=== PATIENT | male | born 1935 | race Caucasian/White ===

== ENCOUNTER → 2016-10-26 | Outpatient (CLI) | payer BC, OTHER ==
[~2016-10-26] MED LIST: ASPEC81 PO; FURO40TA3 PO; LOSA50TA6 PO; MULTTAB58 PO; RIVA1TAB4 PO; SIMV40TA2 PO; TPRSR50 PO; ZOLP5TAB PO
[2016-10-26 18:16] LABS: BLOOD UREA NITROGEN 37 mg/dl (7-18); BUN/CREATININE RATIO 26.1 (10-20); CALCIUM 9.1 mg/dl (8.5-10.1); CARBON DIOXIDE 30 mmol/L (21-32); CHLORIDE 100 mmol/L (98-107); GLUCOSE 114 mg/dl (70-99); SODIUM 138 mmol/L (136-145)
== END | disposition home or self-care (01) ==
LOC: C.LABBFT 12:07
PROVIDERS: ATTEND Nurse Practitioner
DX: R60.9 Edema, unspecified (principal)

== ENCOUNTER 2018-09-17 17:12 | Observation (INO) ==
--- NOTE | 2018-09-17 18:07 | XRay Report ---
XR chest 1V portable CLINICAL HISTORY: Shortness of breath COMPARISON STUDY: 08/21/2016 FINDINGS: The heart is enlarged. There is persistent aortic tortuosity/ectasia. There is a right subc lavian dual-chamber central venous pacemaker present. There is no lobar consolidation. There is mild basilar interstitial thickening.[ IMPRESSION: 1. Cardiomegaly and aortic tortuosity/ectasia 2. Mild basilar interstitial thickening (atelectatic versus mild edema versus infectious/inflammatory ) Electronically signed by: Yury Hdz M.D. 09/17/2018 6:05 PM
[2018-09-17 18:42] LABS: Basophils # (auto) 0.03 K/uL (0-0.2); Basophils % (auto) 0.3 %; Eosinophils # (auto) 0.32 K/uL (0-0.5); Eosinophils % (auto) 3.1 %; Hematocrit (blood only) 44.1 % (42-52); Hemoglobin 14.8 g/dL (14.0-18.0); Immature Granulocytes # (auto) 0.04 K/uL (0.00-0.02); Immature Granulocytes % (auto) 0.4 %; Lymphocytes # (auto) 2.35 K/uL (1.2-3.4); Lymphocytes % (auto) 22.7 %; Mean Corpuscular Hgb Conc 33.6 g/dL (32-36); Mean Corpuscular Volume 90.6 fL (80-100); Mean Platelet Volume 10.5 fL (7.4-10.4); Monocytes # (auto) 0.71 K/uL (0.11-0.59); Monocytes % (auto) 6.9 %; Neutrophils # (auto) 6.91 K/uL (1.4-6.5); Neutrophils % (auto) 66.6 %; Platelet Count 133 K/uL (130-400); RDW Coefficient of Variation 13.1 % (11.5-14.5); RDW Standard Deviation 43.3 fL (36.4-46.3); Red Blood Count 4.87 M/uL (4.7-6.1); White Blood Count 10.36 K/uL (4.8-10.8)
[2018-09-17 18:57] LABS: Alanine Aminotransferase 21 U/L (12-78); Aspartate Aminotransferase 19 U/L (15-37); BUN Creatinine Ratio 21.4 (10-20); Blood Urea Nitrogen 30 mg/dl (7-18); Calcium 9.1 mg/dl (8.5-10.1); Carbon Dioxide 27 mmol/L (21-32); Chloride 104 mmol/L (98-107); Creatinine Clr Calc Pharmacy 54.6 ml/min; Est GFR (African American) 54.7; Est GFR (Non-African American) 47.2; Glucose 96 mg/dl (70-99); Magnesium 2.4 mg/dl (1.8-2.4); Potassium 4.2 mmol/L (3.5-5.1); Sodium 138 mmol/L (136-145)
[2018-09-17 19:08] LABS: Albumin Globulin Ratio 1.2 (0.9-2); Alkaline Phosphatase 106 U/L (45-117); Bilirubin,Total 0.5 mg/dl (0.2-1); Globulin 3.4 gm/dl (2.5-4.0); NT Pro B Type Natriuretic Pept 3574 pg/ml (0-1800); Total Protein 7.4 gm/dl (6.4-8.2); Troponin I < 0.015 ng/ml (0-0.045)
[2018-09-17] MEDS ORDERED: FUROSEMIDE 40 MG/4 ML VIAL IV STA (20:29)
--- NOTE | 2018-09-17 21:27 | History & Physical Report ---
Date of Service September 17, 2018 Assessment & Plan (1) Atrial flutter: Patient with history of atrial fibrillation, atrial arrhythmias and mitral and aortic valve disease s/p MVR and AVR, dual-chamber pacemaker in place. He presents with dyspnea at rest, found to be in atrial flutter which is new for him. Patient presently in no respiratory distress. Adequate oxygenation on room air. His HR is sustained 105-108, blood pressure stable. Electrolytes and TSH WNL. * Observation to medical floor with telemetry * Check 2D echocardiogram - patient is s/p bioprosthetic MVR and AVR * Lasix 20mg IV x 1 dose administered in the ER - will closely monitor for the need for additional diuresis * Continue Metoprolol 50mg po daily * Metoprolol 5mg IV as needed for HR > 120 * Continue Xarelto anticoagulation * Cardiology consultation - patient is known to Dr. Newton - appreciate assistance with this case * (2) Dyspnea: Patient presently with no dyspnea. Adequate oxygenation and ventilation on room air. Possibly secondary to underlying arrhythmia, mild degree of CHF in setting of rapid HR * Lasix 20mg IV given * Continue Lasix 40mg po daily * Monitor output * Present on Admission?: Yes (3) CAD (coronary artery disease): Nonobstructing CAD. No CP, no evidence of myocardial ischemia by labs or EKG * Continue ASA, Cozaar, metoprolol and Simvastatin * Present on Admission?: Yes (4) Hypertension: Blood pressure stable at present * Continue Metoprolol and Cozaar * Continue to monitor * F/E/N- Diuresis as above, monitor I/O, montitor electrolytes and replete as needed. Heart healthy diet as tolerated. Vistaril PRN insomnia. Continue MVI ppx - Anticoagulated with Xarelto Code - Full per discussion with patient Dispo - Observation to Med with tele History of Present Illness Chief Complaint: SOB Primary Care Provider: Efra Hobson III, Mr. Ocampo is a pleasant 82yo C male with history of non-obstructive CAD, atrial fibrillation on anticoagulation, bioprosthetic MVR and AVR and dual chamber pacer in place. He follows with Dr. Newton. Patient was working in the garage this evening when he became acutely short of breath. He sat down to rest with minimal relief in symptoms. He then carried a box of tools upstairs and became more dyspneic. He laid on the floor with no improvement in symptoms. 911 was called and he was sent to the ER. Patient denies chest pain, cough, fevers, orhtopnea or edema. He does report occasional palpitations over the last few months as well as strong palpitations this evening during the episode of dyspnea. Patient was given a fit-bit for Harini - son reports that his resting heart rate has been in the 60's all week. Patient with no additional complaints at this time. Upon arrival to the ER he was found to be in new onset atrial flutter. Blood pressure stable. Patient asymptomatic. ER Course: Lasix 20mg IV Allergies Allergy/AdvReac Type Severity Reaction Status Date / Time adhesive Allergy Mild RASH Verified 09/17/18 20:50 Home Medications Home Medications Medication Instructions Recorded Confirmed Type albuterol sulfate [ProAir HFA] 2 puff INHALATION Q4H PRN 09/17/18 09/17/18 History aspirin [Aspir-81] 81 mg PO DAILY 09/17/18 09/17/18 History furosemide 40 mg PO DAILY 09/17/18 09/17/18 History losartan 50 mg PO DAILY 09/17/18 09/17/18 History metoprolol succinate 50 mg PO DAILY 09/17/18 09/17/18 History multivitamin [Multiple Vitamins] 1 tab PO DAILY 09/17/18 09/17/18 History rivaroxaban [Xarelto] 20 mg PO DAILY 09/17/18 09/17/18 History simvastatin 40 mg PO DAILY 09/17/18 09/17/18 History zolpidem 5 mg PO HS PRN 09/17/18 09/17/18 History Past Med/Surg History Medical History Hypertension (Chronic) Atrial fibrillation CAD (coronary artery disease) Hyperlipidemia Surgical History H/O aortic valve replacement (Resolved) H/O mitral valve replacement (Resolved) History of appendectomy History of permanent cardiac pacemaker placement Family History Other Cancer Heart disease Hypertension Social History Current Living Situation: Family Feels Safe at Home: Yes Smoking Status: Never smoker Hx Alcohol Use: No Hx Substance Use: No Review of Systems All systems reviewed & are unremarkable except as noted in HPI & below Physical Exam 2 Vital Signs (Past 24 Hours): Last Vital Signs Temp 36.5 C 09/17/18 17:15 Pulse 108 H 01/15/19 20:31 Resp 19 09/17/18 20:31 BP 102/78 09/17/18 20:31 Pulse Ox 96 09/17/18 20:31 Physical Exam: General: patient resting comfortably, NAD, non-toxic in appearance, AA&O x 4 Skin: warm, dry, intact, no rashes or lesions HEENT: NC/AT, PERRL, EOMI, anicteric sclera, conjunctiva without injection, external ear normal to inspection and nontender, nares patent, moist mucus membranes, dentition intact, no oropharyngeal lesions, neck supple, trachea midline, no LAD, no thyromegaly, no JVD Heart: +S1/S2, regular, tachycardic, no m/r/g Lungs: equal air entry bilaterally, no rales/rhonchi/wheezes Abd: obese, +BS, soft, NT/ND, no masses/organomegaly/ascites Ext: warm, 2+ pulses in UE/LE bilaterally, trace pitting edema Neuro: nonfocal, patient AA&O x 4, speech intact, no facial droop, moving all extremities on command with equal strength 5/5 Results & Data Laboratory Results Lab Results 09/17/18 09/17/18 Range/Units 18:18 18:18 WBC 10.36 (4.8-10.8) K/uL RBC 4.87 (4.7-6.1) M/uL Hgb 14.8 (14.0-18.0) g/dL Hct 44.1 (42-52) % MCV 90.6 (80-100) fL MCH 30.4 (25-34) pg MCHC 33.6 (32-36) g/dL RDW Std Deviation 43.3 (36.4-46.3) fL RDW Coeff of Radha 13.1 (11.5-14.5) % Plt Count 133 (130-400) K/uL MPV 10.5 H (7.4-10.4) fL Immature Gran % (Auto) 0.4 % Neut % (Auto) 66.6 % Lymph % (Auto) 22.7 % Faulk % (Auto) 6.9 % Eos % (Auto) 3.1 % Baso % (Auto) 0.3 % Immature Gran # (Auto) 0.04 H (0.00-0.02) K/uL Neut # (Auto) 6.91 H (1.4-6.5) K/uL Lymph # (Auto) 2.35 (1.2-3.4) K/uL Faulk # (Auto) 0.71 H (0.11-0.59) K/uL Eos # (Auto) 0.32 (0-0.5) K/uL Baso # (Auto) 0.03 (0-0.2) K/uL Sodium 138 (136-145) mmol/L Potassium 4.2 (3.5-5.1) mmol/L Chloride 104 (98-107) mmol/L Carbon Dioxide 27 (21-32) mmol/L Anion Gap 7.0 (3-11) BUN 30 H (7-18) mg/dl Creatinine 1.39 (0.6-1.4) mg/dl Est Cr Clr Drug Dosing 54.6 ml/min Est GFR ( Amer) 54.7 Est GFR (Non-Af Amer) 47.2 BUN/Creatinine Ratio 21.4 H (10-20) Glucose 96 (70-99) mg/dl Calcium 9.1 (8.5-10.1) mg/dl Magnesium 2.4 (1.8-2.4) mg/dl Total Bilirubin 0.5 (0.2-1) mg/dl AST 19 (15-37) U/L ALT 21 (12-78) U/L Alkaline Phosphatase 106 (45-117) U/L Troponin I < 0.015 (0-0.045) ng/ml NT-Pro-B Natriuret Pep 3574 H (0-1800) pg/ml Total Protein 7.4 (6.4-8.2) gm/dl Albumin 4.0 (3.4-5.0) gm/dl Globulin 3.4 (2.5-4.0) gm/dl Albumin/Globulin Ratio 1.2 (0.9-2) Lipase 181 (73-393) U/L TSH 2.350 (0.300-4.500) uIu/ml Diagnostic Findings XR chest 1V portable CLINICAL HISTORY: Shortness of breath COMPARISON STUDY: 08/21/2016 FINDINGS: The heart is enlarged. There is persistent aortic tortuosity/ectasia. There is a right subclavian dual-chamber central venous pacemaker present. There is no lobar consolidation. There is mild basilar interstitial thickening. [ IMPRESSION: 1. Cardiomegaly and aortic tortuosity/ectasia 2. Mild basilar interstitial thickening (atelectatic versus mild edema versus infectious/inflammatory) Electronically signed by: Yury Hdz M.D. 09/17/2018 6:05 PM ECG Additional Comments: The study shows atrial flutter with 2:1 block, no evidence of acute ischemia Code Status & VTE Plan Code Status FULL VTE Prophylaxis Plan VTE Prophylaxis will be ordered: No Reason for no VTE drug order: Treatment not indicated Reason for no VTE mechanical prophylaxis: Treatment not indicated Critical Care Time Critical Care Time: No _ (1) CAD (coronary artery disease) Coronary Disease-Associated Artery/Lesion type: grayling artery [place] vs. transplanted heart: grayling heart Associated angina: without angina Qualified Code(s): I25.10 - Atherosclerotic heart disease of grayling coronary artery without angina pectoris (2) Atrial flutter Atrial flutter type: unspecified Qualified Code(s): I48.92 - Unspecified atrial flutter (3) Dyspnea Dyspnea type: shortness of breath Qualified Code(s): R06.02 - Shortness of breath; R06.00 - Dyspnea, unspecified; R06.01 - Orthopnea (4) Hypertension Hypertension type: essential hypertension Qualified Code(s): I10 - Essential (primary) hypertension
[2018-09-17] MEDS ORDERED: ACETAMINOPHEN 325 MG TAB PO PRN (23:49)
[2018-09-17] MEDS ORDERED: METOPROLOL TARTRATE 1 MG/ML VIAL IV PRN (23:49)
[2018-09-18 00:18] LABS: Phosphorus 2.3 mg/dl (2.5-4.9)
[2018-09-18] MEDS ORDERED: POTASSIUM PHOS 3 MMOL/1 ML INFUSION IV STA (06:04)
[2018-09-18] MEDS: POT PHOSPHATE MONOBASIC W/ SOD TAB PO SCH ×2 (07:53→20:41)
[2018-09-18] MEDS: FUROSEMIDE 40 MG TAB PO SCH (07:54)
[2018-09-18] MEDS: MULTIVITAMIN TAB PO SCH (07:57)
[2018-09-18] MEDS: ASPIRIN 81 MG ECTAB PO SCH (07:58)
[2018-09-18] MEDS: RIVAROXABAN 20 MG TAB PO SCH (07:58)
[2018-09-18] MEDS ORDERED: LOSARTAN POTASSIUM 50 MG TAB PO SCH (09:00)
[2018-09-18] MEDS ORDERED: SIMVASTATIN 40 MG TAB PO SCH (09:00)
[2018-09-18] MEDS ORDERED: METOPROLOL SUCC 50MG EXT REL TAB PO SCH (09:00)
--- NOTE | 2018-09-18 11:07 | Consultation Report ---
DATE OF CONSULTATION: 09/18/2018 REQUESTING PHYSICIAN: Elzbieta Stout DO [place]NER: Jeevan Newton DO, [facility]. REASON FOR CONSULTATION: Shortness of breath, new onset atrial flutter. Dear Dr. Stout: Thank you for requesting a cardiology consultation on Renny with regards to his complex cardiac history. As you know, he is a pleasant and very active 82-year-old gentleman with a prior history of bioprosthetic aortic and mitral valve prostheses. In addition, he had a severe paravalvular leak across the mitral valve, which required 3 plugs. He has a pacemaker (Medtronic device for AV block). He has had short episodes of atrial arrhythmias in the past, none of which have lasted for any significant duration. He notes yesterday, he was going down the stairs, when he reached the bottom of the stairs, he notices all of a sudden that he did not feel well and he felt short of breath and felt like he could not breathe, he felt like he had some gurgling in his chest. He laid down with some improvement in his symptoms. He called his family member noting that he was short of breath and not feeling well and was brought to the Emergency Room. EKG reveals atrial flutter with 2:1 conduction at a rate of approximately 110 beats per minute. This morning, he is unaware of any palpitations and notes he actually feels better, although he has not walked in the hallway. He is not lightheaded or dizzy. He denies any shortness of breath this morning, chest pain, chest pressure, chest heaviness. He notes in the days leading up to this, he felt relatively well and denied any cardiac symptoms. He has been compliant with his Xarelto and has not missed any doses. He denies any dark stools, black stools, fevers, chills, sweats, cough, productive sputum. His appetite has been relatively stable. He does weigh himself on a regular basis. His weight has been within pound or 2 of usual. He does occasionally get some swelling on his left leg, but that has not worsened recently. He denies any increased abdominal distention or feeling like his pants are tight. The rest of system is otherwise negative. ALLERGIES: LISINOPRIL AND TAPE. SOCIAL HISTORY: Denies any tobacco or alcohol. He likes to jovita in the garage with antiques. He is . He worked in construction. MEDICATIONS: Reviewed in the inpatient medical record. PAST MEDICAL HISTORY: 1. Status post aortic valve replacement with a 23 mm Brad-Aguirre bioprosthetic aortic valve at [facility], February 2010. 2. Status post mitral valve replacement of 33 mm bioprosthetic mitral valve, January 2012 secondary to severe mitral regurgitation. 3. Status post repair of a large paravalvular mitral regurgitant leak with 3 plugs at [facility] February 2013. 4. History of a nonischemic cardiomyopathy with an echo today suggesting an EF in the range of 50% with a septal abnormality. 5. Cardiac catheterization October 2012 with a 50-60% lesion within the OM of the circumflex, 40% proximal LAD lesion. 6. Paroxysmal atrial fibrillation, on anticoagulation. 7. Complete heart block, status post Medtronic Sensia dual chamber pacemaker January 2012. 8. History of thyroid nodule. 9. Hypertension. 10. Hyperlipidemia. 11. Osteoarthritis. 12. Carotid bruit. 13. Likely obstructive sleep apnea and obesity hypoventilation syndrome, refusing a sleep study. FAMILY HISTORY: Noncontributory. PHYSICAL EXAMINATION: GENERAL: He is awake, alert, oriented x3, looks younger than his stated age. VITAL SIGNS: His heart rate is 108, his blood pressure 133/80, respirations 18, sat is 92%. HEENT: Moderately reduced carotid upstrokes, no evidence of carotid bruits. Jugular venous pressure did not appear elevated. His sclerae are anicteric. His hearing is normal. LUNGS: Clear to auscultation bilaterally. No rales, rhonchi or wheezing. HEART: Regular rate and rhythm (tachycardic/atrial flutter). There were no appreciable murmurs, rubs or gallops. ABDOMEN: Soft, nontender, chronically distended. Positive bowel sounds. EXTREMITIES: No clubbing, cyanosis or edema. PSYCHIATRIC: His affect appeared appropriate. NEUROLOGIC: Grossly nonfocal. LABORATORY STUDIES: Hemoglobin 14.8, platelet count of 133, BUN 30, creatinine 1.39. Sodium 138, potassium 4.2. His proBNP is 3574. His TSH is normal at 2.35. His AST and ALT were normal. Chest x-ray, cardiomegaly, tortuous aorta, mild basilar interstitial thickening. Echocardiogram, this morning, dilated right ventricle with hypokinesis of the RV free wall. The aortic and mitral valve prosthesis appeared to be functioning normally. There is no significant aortic or mitral regurgitation. He has mild pulmonary hypertension. His LV function is low normal with abnormal septal motion. Device interrogation suggested multiple fast atrial arrhythmias an hour and 19 minutes on 08/11/2018, 3 hours and 35 minutes on the same day and on 09/17/2018 at 5:05 p.m., he initiated atrial flutter. IMPRESSION: 1. New onset atrial flutter. 2. History of bioprosthetic aortic and mitral valve prostheses. 3. Low normal left ventricular systolic function. 4. Dilated right ventricle with RV dysfunction. 5. Shortness of breath secondary to the loss of his atrial kick and mild heart failure symptoms. As I discussed with Renny, his options include increasing his beta blockers to control his rate, understanding that he still will not have an appropriate atrial kick which likely will contribute to his shortness of breath, in addition atrial flutter can be very difficult to control with AV zoe blockers and we may be unsuccessful. Option two was to consider overdrive pacing him with the risk that we put him into atrial fibrillation or consideration of cardioversion to get him back into sinus rhythm. I did discuss that we do not know how long he would stay in sinus rhythm as he appears to be having more frequent episodes and ultimately may need antiarrhythmic therapy to maintain sinus rhythm. The third option we consider a flutter ablation, understanding it could be right sided or left sided, especially in light of his previous mitral valve surgery. He remains on anticoagulation with Xarelto. He has not missed any doses of Xarelto. After a long discussion, he did not want to consider cardioversion at this point and wants to consider AV zoe blockers understanding he may still be short of breath and we may not be able to control his rate and ultimately he may end up with a cardioversion in any way. Therefore, I stopped his losartan and double his Toprol to 50 mg b.i.d. He will remain on Xarelto. I will review his device interrogation with pacemaker clinic. Further recommendations will be forthcoming. We will continue to follow him with you.
--- NOTE | 2018-09-18 17:25 | Hospitalist Progress Note ---
Date of Service September 18, 2018 Assessment & Plan (1) Atrial flutter: Patient with history of atrial fibrillation, atrial arrhythmias and mitral and aortic valve disease s/p MVR and AVR, dual-chamber pacemaker in place. He presents with dyspnea at rest, found to be in atrial flutter which is new for him. Electrolytes and TSH WNL. Cardiology has seen him and discussed options for treatment. Decision made for rate control strategy. ECHO with CHF -increased Toprol XL to 50mg bid -dc'd losartan to make room in BP for increased Toprol -appreciate Cardiology consultation -continue telemetry -Continue Xarelto for anticoagulation. (2) Dyspnea: Likely secondary to underlying arrhythmia, mild degree of CHF in setting of rapid HR * Lasix 20mg IV given * Continue Lasix 40mg po daily * Monitor output (3) CAD (coronary artery disease): Cardiac catheterization October 2012 with a 50-60% lesion within the OM of the circumflex, 40% proximal LAD lesion. Nonobstructing CAD. No CP, no evidence of myocardial ischemia by labs or EKG * Continue ASA,dcing Cozaar as above, metoprolol and Simvastatin (4) Hypertension: Blood pressure stable at present * Continue Metoprolol (5) History of mitral valve prosthesis: Status post mitral valve replacement of 33 mm bioprosthetic mitral valve, January 2012 secondary to severe mitral regurgitation. 3. Status post repair of a large paravalvular mitral regurgitant leak with 3 plugs at [facility] February 2013. (6) History of aortic valve replacement: Status post aortic valve replacement with a 23 mm Brad-Aguirre bioprosthetic aortic valve at [facility], February 2010. (7) Cardiac pacemaker in situ: Complete heart block, status post Medtronic Sensia dual chamber pacemaker January 2012. (8) Paroxysmal atrial fibrillation: h/o such, on metoprolol and AC with Xarelto (9) Nonischemic cardiomyopathy: History of a nonischemic cardiomyopathy with an echo today suggesting an EF in the range of 50% with a septal abnormality. (10) Thyroid nodule: noted (11) Hyperlipidemia: continue statin (12) Acute on chronic combined systolic and diastolic heart failure: LVEF low normal at 50%, with RV wall hypokinesis and sys dysfunction, mod increase RVSP indicating PHTN With dyspnea on admission, was given one dose IV lasix, now improved Likely exacerbated by rapid A-flutter -continue daily home po lasix -follow I/Os, daily weights (13) DVT prophylaxis: Xarelto Dispo-remain on tele, possible dc in 1-2 days when rates controlled Subjective Pt feels well today. Denies CP, but huynh shave some mild dyspnea. No nausea, no abd pain, no increased leg swelling. No urinary retention, no constipation. Rates Aflutter in 100-120 range. Review of Systems All systems reviewed & are unremarkable except as noted in HPI & below Physical Exam 2 Vital Signs (Past 24 Hours): Last Vital Signs Temp 36.6 C 09/18/18 15:10 Pulse 110 H 09/18/18 15:10 Resp 20 09/18/18 15:10 BP 94/64 L 09/18/18 15:10 Pulse Ox 92 09/18/18 15:10 Constitutional: WD/WN, vitals as above Eyes: PERRL, conjunctivae normal, anicteric sclerae ENMT: external ear and nose normal, oropharynx normal Neck: trachea midline, no thyromegaly Respiratory: normal respiratory effort, lungs clear to auscultation Cardiovascular: Rate/Rhythm: + tachycardic; + abnormal rhythm (irreg irreg) Heart Sounds: no murmur Extremities: + edema (trace pitting edema legs bilat) Gastrointestinal (Abdomen): normal bowel sounds, soft, nontender, no hepatosplenomegaly Musculoskeletal: Extremities: extremities normal to inspection; no cyanosis and no clubbing Skin: no rashes, warm and dry Neurologic: moves all extremities and awake; no focal motor deficits Psychiatric: A+Ox3, euthymic affect Results & Data Laboratory Results 09/17/18 09/17/18 Range/Units 18:18 18:18 WBC 10.36 (4.8-10.8) K/uL RBC 4.87 (4.7-6.1) M/uL Hgb 14.8 (14.0-18.0) g/dL Hct 44.1 (42-52) % MCV 90.6 (80-100) fL MCH 30.4 (25-34) pg MCHC 33.6 (32-36) g/dL RDW Std Deviation 43.3 (36.4-46.3) fL RDW Coeff of Radha 13.1 (11.5-14.5) % Plt Count 133 (130-400) K/uL MPV 10.5 H (7.4-10.4) fL Immature Gran % (Auto) 0.4 % Neut % (Auto) 66.6 % Lymph % (Auto) 22.7 % Wilkinson % (Auto) 6.9 % Eos % (Auto) 3.1 % Baso % (Auto) 0.3 % Immature Gran # (Auto) 0.04 H (0.00-0.02) K/uL Neut # (Auto) 6.91 H (1.4-6.5) K/uL Lymph # (Auto) 2.35 (1.2-3.4) K/uL Wilkinson # (Auto) 0.71 H (0.11-0.59) K/uL Eos # (Auto) 0.32 (0-0.5) K/uL Baso # (Auto) 0.03 (0-0.2) K/uL Sodium 138 (136-145) mmol/L Potassium 4.2 (3.5-5.1) mmol/L Chloride 104 (98-107) mmol/L Carbon Dioxide 27 (21-32) mmol/L Anion Gap 7.0 (3-11) BUN 30 H (7-18) mg/dl Creatinine 1.39 (0.6-1.4) mg/dl Est Cr Clr Drug Dosing 54.6 ml/min Est GFR ( Amer) 54.7 Est GFR (Non-Af Amer) 47.2 BUN/Creatinine Ratio 21.4 H (10-20) Glucose 96 (70-99) mg/dl Calcium 9.1 (8.5-10.1) mg/dl Phosphorus 2.3 L (2.5-4.9) mg/dl Magnesium 2.4 (1.8-2.4) mg/dl Total Bilirubin 0.5 (0.2-1) mg/dl AST 19 (15-37) U/L ALT 21 (12-78) U/L Alkaline Phosphatase 106 (45-117) U/L Troponin I < 0.015 (0-0.045) ng/ml NT-Pro-B Natriuret Pep 3574 H (0-1800) pg/ml Total Protein 7.4 (6.4-8.2) gm/dl Albumin 4.0 (3.4-5.0) gm/dl Globulin 3.4 (2.5-4.0) gm/dl Albumin/Globulin Ratio 1.2 (0.9-2) Lipase 181 (73-393) U/L TSH 2.350 (0.300-4.500) uIu/ml _ (1) Atrial flutter Atrial flutter type: unspecified Qualified Code(s): I48.92 - Unspecified atrial flutter (2) Dyspnea Dyspnea type: shortness of breath Qualified Code(s): R06.02 - Shortness of breath; R06.00 - Dyspnea, unspecified; R06.01 - Orthopnea (3) CAD (coronary artery disease) Coronary Disease-Associated Artery/Lesion type: three affiliated artery [place] vs. transplanted heart: three affiliated heart Associated angina: without angina Qualified Code(s): I25.10 - Atherosclerotic heart disease of three affiliated coronary artery without angina pectoris (4) Hypertension Hypertension type: essential hypertension Qualified Code(s): I10 - Essential (primary) hypertension
[2018-09-18] MEDS: METOPROLOL SUCC 50MG EXT REL TAB PO SCH (20:40)
[2018-09-18] MEDS: AMIODARONE 200 MG TAB PO SCH (20:40)
--- NOTE | 2018-09-19 04:01 | Emergency Department Note ---
Entered by Yang Garcia acting as a scribe for Rebecca Catherine DO History of Present Illness General Chief complaint: Shortness of Breath/Dyspnea Stated complaint: SOB, WEAKNESS Time Seen by Provider: 09/17/18 17:24 Source: patient and family History of Present Illness Onset (ago): minute(s) (prior to arrival) Location: chest (lungs) Pain Consistency: + now resolved Quality: + other (shortness of breath) Exacerbated By: + other (walking down steps) Associated symptoms: + diaphoresis and + other (appeared clammy; temporarily lightheaded and nauseous); no chest pain, no cough and no fever/chills The patient is an 82 year old male who presents to the Emergency Room with complaints of currently resolved shortness of breath beginning today prior to arrival. The patient reports that he was walking down a flight of steps when he developed sudden shortness of breath. He states that he sat down, took deep breaths, lied on the floor, and called for help. Family notes that he appeared clammy and diaphoretic at the time with some wheezing. He states that he was a little lightheaded when standing from the floor with help, and he became nauseous in the ambulance, but these symptoms are now resolved. The patient reports that he currently feels fine and denies shortness of breath at this time. He reports a cardiac history, stating that he had and aortic valve replaced at [facility] and a mitral valve replaced at [place] in 2011. He states that he was in the ER two years ago for similar symptoms that developed while walking his dog, noting that his pulse was 190 at the time. He reports that he regularly takes Lasix. He denies recent changes in his medication, chest pain or pressure, fevers, chills, cough, or rhinorrhea. He reports that he follows Dr. [facility] and last saw him about six months ago. He states that he regularly takes Xarelto and has not recently missed any doses. Home Medications Home Medications Medication Instructions Recorded Confirmed Type albuterol sulfate [ProAir HFA] 2 puff INHALATION Q4H PRN 09/17/18 09/17/18 History aspirin [Aspir-81] 81 mg PO DAILY 09/17/18 09/17/18 History furosemide 40 mg PO DAILY 09/17/18 09/17/18 History losartan 50 mg PO DAILY 09/17/18 09/17/18 History metoprolol succinate 50 mg PO DAILY 09/17/18 09/17/18 History multivitamin [Multiple Vitamins] 1 tab PO DAILY 09/17/18 09/17/18 History rivaroxaban [Xarelto] 20 mg PO DAILY 09/17/18 09/17/18 History simvastatin 40 mg PO DAILY 09/17/18 09/17/18 History zolpidem 5 mg PO HS PRN 09/17/18 09/17/18 History Allergies Allergy/AdvReac Type Severity Reaction Status Date / Time adhesive Allergy Mild RASH Verified 09/17/18 20:50 Past Med/Surg History Medical History Acute on chronic combined systolic and diastolic heart failure Hyperlipidemia Thyroid nodule Nonischemic cardiomyopathy Paroxysmal atrial fibrillation Cardiac pacemaker in situ CAD (coronary artery disease) Atrial flutter (Acute) Hypertension (Chronic) Atrial fibrillation CAD (coronary artery disease) Hyperlipidemia Surgical History History of aortic valve replacement History of mitral valve prosthesis H/O aortic valve replacement (Resolved) H/O mitral valve replacement (Resolved) History of appendectomy History of permanent cardiac pacemaker placement Family History Other Cancer Heart disease Hypertension Social History Current Living Situation: Family Other Information That Helps Us Care for You: No Feels Safe at Home: Yes Safety Concerns: Feels Safe At This Time Smoking Status: Never smoker Tobacco Type: smokeless tobacco Do You Dip or Chew Tobacco: Yes (1 can every 3 weeks) Tobacco Cessation Education Requested by Patient: No Hx Alcohol Use: No Hx Substance Use: No Beliefs That Will Affect Care: None Preferred Language: Pashto Communication Ability: Effective Older Adult Social Work Specialist Required: No Review of Systems See HPI for pertinent positives & negatives. and A total of 10 systems reviewed and were otherwise negative Physical Exam Vital Signs Vital Signs - 24 hr 09/18/18 07:55 09/18/18 08:10 09/18/18 11:41 Temperature 36.6 C 36.4 C L Temperature Source Oral Oral Pulse Rate 108 H Pulse Rate [Right Finger] 108 H 108 H Pulse Rhythm [Right Finger] Regular Pulse Strength [Right Finger] Normal Respiratory Rate 18 20 Respiratory Effort / Characteristics Non-Labored Spontaneous Respiratory Depth Normal Respiratory Pattern Regular Blood Pressure [Left Arm] 133/80 125/68 Blood Pressure Mean [Left Arm] 97 87 Blood Pressure Position [Left Arm] Sitting Lying Pulse Oximetry 92 95 Oxygen Delivery Method Room Air 09/18/18 15:10 09/18/18 19:00 09/18/18 23:43 Temperature 36.6 C 36.3 C L 36.4 C L Temperature Source Oral Oral Oral Pulse Rate Pulse Rate [Right Finger] 110 H 111 H 107 H Pulse Rhythm [Right Finger] Pulse Strength [Right Finger] Respiratory Rate 20 18 20 Respiratory Effort / Characteristics Respiratory Depth Normal Respiratory Pattern Blood Pressure [Left Arm] 94/64 L 108/72 100/67 Blood Pressure Mean [Left Arm] 74 84 78 Blood Pressure Position [Left Arm] Lying Sitting Lying Pulse Oximetry 92 95 94 Oxygen Delivery Method Room Air Room Air Room Air 09/19/18 01:16 Temperature Temperature Source Pulse Rate 109 H Pulse Rate [Right Finger] Pulse Rhythm [Right Finger] Pulse Strength [Right Finger] Respiratory Rate Respiratory Effort / Characteristics Respiratory Depth Respiratory Pattern Blood Pressure [Left Arm] Blood Pressure Mean [Left Arm] Blood Pressure Position [Left Arm] Pulse Oximetry Oxygen Delivery Method GENERAL: alert, well appearing, well nourished, no distress, non-toxic EYE EXAM: normal conjunctiva, PERRL and EOM's grossly intact OROPHARYNX: no exudate, no erythema, lips, buccal mucosa, and tongue normal and mucous membranes are moist NECK: supple, no nuchal rigidity, no adenopathy, non-tender, no JVD LUNGS: Decreased breath sounds bilaterally. No wheezing, rhonchi or rales. Normal chest wall mechanics HEART: no murmurs, S1 normal and S2 normal CHEST: Well healed vertical midline scar of the chest. Right anterior superior chest wall scar consistent with pacemaker. ABDOMEN: abdomen soft, non-tender, normo-active bowel sounds, no masses, no rebound or guarding. BACK: Back is symmetrical on inspection and there is no deformity, no midline tenderness, no CVA tenderness. SKIN: no rashes and no bruising UPPER EXTREMITIES: upper extremities are grossly normal. FROM, nml pulses b/l. LOWER EXTREMITIES: Trace pedal edema bilaterally. FROM nml pulses b/l. NEURO EXAM: Normal sensorium, cranial nerves II-XII grossly intact, normal speech, no gross weakness of arms, no gross weakness of legs. Gross sensation intact. Course 1735: Past medical records reviewed. The patient was evaluated in room B4B, and a complete history and physical examination were performed. 1950: I updated the patient on his current results, but results of the pacemaker interrogation are still pending. He denies recurrent symptoms. An ambulatory pulse ox will be obtained. The patient denies missing Lasix doses, dietary indiscretion, or increased weight. 2014: I consulted Dr. Marta Peraza Cardiology. He reviewed the EKG, and he agrees with the plan for additional Lasix. We discussed the possibility of additional metoprolol. 2029: I updated the patient on results. 2038: I consulted Dr. Stout [facility] Hospitalist. She will reevaluate the patient for hospitalization. Consultations Consultation #1: I consulted Dr. Marta Peraza Cardiology. He reviewed the EKG, and he agrees with the plan for additional Lasix. We discussed the possibility of additional metoprolol. Time: 20:15 Consultation #2: I consulted Dr. Stout [facility] Hospitalist. She will reevaluate the patient for hospitalization. Time: 20:39 Administered Medications Amiodarone HCl (Cordarone) 200 mg PO BID SANTA Stop: 10/18/18 20:59 Last Admin: 09/18/18 20:40 Dose: 200 mg Aspirin (Ecotrin Ectab) 81 mg PO DAILY SANTA Stop: 10/18/18 08:59 Last Admin: 09/18/18 07:58 Dose: 81 mg Furosemide (Lasix) 40 mg PO DAILY SANTA Stop: 10/18/18 08:59 Last Admin: 09/18/18 07:54 Dose: 40 mg Hydroxyzine HCl (Vistaril) 25 mg PO HS PRN PRN Reason: Insomnia Stop: 10/17/18 23:48 Last Admin: 09/18/18 00:26 Dose: 25 mg Metoprolol Succinate (Toprol Xl) 50 mg PO BID SANTA Stop: 10/18/18 20:59 Last Admin: 09/18/18 20:40 Dose: 50 mg Multivitamins (Multivitamin Tab) 1 tab PO DAILY SANTA Stop: 10/18/18 08:59 Last Admin: 09/18/18 07:57 Dose: 1 tab Rivaroxaban (Xarelto) 20 mg PO DAILY SANTA Stop: 10/18/18 08:59 Last Admin: 09/18/18 07:58 Dose: 20 mg Discontinued Medications Furosemide (Lasix) 20 mg IV NOW STA Stop: 09/17/18 20:30 Last Admin: 09/17/18 20:34 Dose: 20 mg Losartan Potassium (Cozaar) 50 mg PO DAILY SANTA Stop: 10/18/18 08:59 Last Admin: 09/18/18 07:54 Dose: 50 mg Metoprolol Succinate (Toprol Xl) 50 mg PO DAILY SANTA Stop: 10/18/18 08:59 Last Admin: 09/18/18 07:57 Dose: 50 mg Potassium Phosphate (Phospha 250 Neutral 155-852-130 Mg) 2 tab PO BID SANTA Stop: 09/18/18 21:01 Last Admin: 09/18/18 20:41 Dose: 2 tab Admin: 09/18/18 07:53 Dose: 2 tab Simvastatin (Zocor) 40 mg PO DAILY SANTA Stop: 10/18/18 08:59 Last Admin: 09/18/18 07:57 Dose: 40 mg Medical Decision Making Differential Diagnosis Differential diagnosis: Etiologies such as infections, reactive airway disease, pneumonia, pneumothorax , COPD, CHF, cardiac ischemia, pulmonary embolism, musculoskeletal, gastrointestinal, as well as others were entertained. Medical Records Attestation: I reviewed the patient's medical records. Home Medications Current Medication List: was personally reviewed by me Laboratory Data Attestation: I reviewed the patient's lab results. Result diagrams: 09/17/18 18:18 09/17/18 18:18 Lab Results 09/17/18 09/17/18 Range/Units 18:18 18:18 WBC 10.36 (4.8-10.8) K/uL RBC 4.87 (4.7-6.1) M/uL Hgb 14.8 (14.0-18.0) g/dL Hct 44.1 (42-52) % MCV 90.6 (80-100) fL MCH 30.4 (25-34) pg MCHC 33.6 (32-36) g/dL RDW Std Deviation 43.3 (36.4-46.3) fL RDW Coeff of Radha 13.1 (11.5-14.5) % Plt Count 133 (130-400) K/uL MPV 10.5 H (7.4-10.4) fL Immature Gran % (Auto) 0.4 % Neut % (Auto) 66.6 % Lymph % (Auto) 22.7 % [place] % (Auto) 6.9 % Eos % (Auto) 3.1 % Baso % (Auto) 0.3 % Immature Gran # (Auto) 0.04 H (0.00-0.02) K/uL Neut # (Auto) 6.91 H (1.4-6.5) K/uL Lymph # (Auto) 2.35 (1.2-3.4) K/uL [place] # (Auto) 0.71 H (0.11-0.59) K/uL Eos # (Auto) 0.32 (0-0.5) K/uL Baso # (Auto) 0.03 (0-0.2) K/uL Sodium 138 (136-145) mmol/L Potassium 4.2 (3.5-5.1) mmol/L Chloride 104 (98-107) mmol/L Carbon Dioxide 27 (21-32) mmol/L Anion Gap 7.0 (3-11) BUN 30 H (7-18) mg/dl Creatinine 1.39 (0.6-1.4) mg/dl Est Cr Clr Drug Dosing 54.6 ml/min Est GFR ( Amer) 54.7 Est GFR (Non-Af Amer) 47.2 BUN/Creatinine Ratio 21.4 H (10-20) Glucose 96 (70-99) mg/dl Calcium 9.1 (8.5-10.1) mg/dl Phosphorus 2.3 L (2.5-4.9) mg/dl Magnesium 2.4 (1.8-2.4) mg/dl Total Bilirubin 0.5 (0.2-1) mg/dl AST 19 (15-37) U/L ALT 21 (12-78) U/L Alkaline Phosphatase 106 (45-117) U/L Troponin I < 0.015 (0-0.045) ng/ml NT-Pro-B Natriuret Pep 3574 H (0-1800) pg/ml Total Protein 7.4 (6.4-8.2) gm/dl Albumin 4.0 (3.4-5.0) gm/dl Globulin 3.4 (2.5-4.0) gm/dl Albumin/Globulin Ratio 1.2 (0.9-2) Lipase 181 (73-393) U/L TSH 2.350 (0.300-4.500) uIu/ml Imaging Data Radiologist's Impression: Radiology results as stated below per my review and the radiologist's interpretation: XR chest 1V portable CLINICAL HISTORY: Shortness of breath COMPARISON STUDY: 08/21/2016 FINDINGS: The heart is enlarged. There is persistent aortic tortuosity/ectasia. There is a right subclavian dual-chamber central venous pacemaker present. There is no lobar consolidation. There is mild basilar interstitial thickening. [ IMPRESSION: 1. Cardiomegaly and aortic tortuosity/ectasia 2. Mild basilar interstitial thickening (atelectatic versus mild edema versus infectious/inflammatory) Electronically signed by: Yury Hdz M.D. 09/17/2018 6:05 PM ECG Data Attestation: I personally reviewed and interpreted this ECG as follows: Indication: SOB/dyspnea Rate (beats per minute): 106 Rhythm: atrial flutter Findings: + other (normal axis, normal intervals); no PAC, no PVC, no ST depression and no ST elevation Blood Pressure Blood Pressure Findings: Normal blood pressure Blood Pressure Disposition: did not require urgent referral MDM Narrative Patient with significant cardiac history and episode of shortness of breath tonight. While patient reported feeling improved at the time of arrival, was not hypoxic, concern given his significant cardiac history. Initial EKG and heart rate on telemetry thought to possibly be sinus tachycardia due to events and stress, however given persistence of heart rate I reviewed the EKG again and was concerned for atrial flutter. Patient with prior history of atrial fibrillation according to old records, however no atrial flutter. Patient with no physical exam findings of acute congestive heart failure, however BNP elevated. Case discussed with cardiology as a precaution who agree with diagnosis of atrial flutter. Patient is already on Lasix daily, discussed giving additional small dose of Lasix to help with fluid. I did question the patient at bedside regarding this, and he does admit to mild dietary indiscretions recently. Patient has been normotensive here, we did discuss additional beta-blockade if necessary. Patient is already anticoagulated. This was relayed to the hospitalist who I discussed this with for additional evaluation and management. Patient and family were aware of all results in agreement with plan. Patient was hemodynamically stable throughout. Impression & Plan Dyspnea, Atrial flutter, Elevated brain natriuretic peptide (BNP) level Discharge Plan Visit Data *Final* Discharge Date/Time: 09/17/18 23:12 Chief Complaint: Shortness of Breath/Dyspnea Stated Complaint: SOB, WEAKNESS ED Provider: Rebecca Catherine Discharge Problem: Dyspnea, Atrial flutter, Elevated brain natriuretic peptide (BNP) level Patient Disposition: Admitted As Inpatient Discharge Instructions Interventions: ED Discharge Assessment Last Done: 09/17/18 23:12 The scribe's documentation has been prepared under my direction and personally reviewed by me in its entirety. I confirm that the note above accurately reflects all work, treatment, procedures, and medical decision making performed by me.
[2018-09-19 06:13] LABS: Basophils # (auto) 0.03 K/uL (0-0.2); Basophils % (auto) 0.4 %; Eosinophils # (auto) 0.35 K/uL (0-0.5); Eosinophils % (auto) 4.3 %; Hematocrit (blood only) 42.5 % (42-52); Hemoglobin 14.2 g/dL (14.0-18.0); Immature Granulocytes # (auto) 0.02 K/uL (0.00-0.02); Immature Granulocytes % (auto) 0.2 %; Lymphocytes % (auto) 34.5 %; Mean Corpuscular Hgb Conc 33.4 g/dL (32-36); Mean Corpuscular Volume 90.2 fL (80-100); Monocytes # (auto) 0.76 K/uL (0.11-0.59); Monocytes % (auto) 9.4 %; Neutrophils # (auto) 4.15 K/uL (1.4-6.5); Neutrophils % (auto) 51.2 %; Platelet Count 123 K/uL (130-400); RDW Coefficient of Variation 13.1 % (11.5-14.5); RDW Standard Deviation 43.2 fL (36.4-46.3); Red Blood Count 4.71 M/uL (4.7-6.1); White Blood Count 8.11 K/uL (4.8-10.8)
[2018-09-19 06:49] LABS: Calcium 8.4 mg/dl (8.5-10.1); Creatinine Clr Calc Pharmacy 50.7 ml/min; Est GFR (African American) 52.4; Est GFR (Non-African American) 45.2; Magnesium 2.3 mg/dl (1.8-2.4); Potassium 3.9 mmol/L (3.5-5.1)
[2018-09-19] MEDS: AMIODARONE 200 MG TAB PO SCH ×2 (07:45→20:26)
[2018-09-19] MEDS: ASPIRIN 81 MG ECTAB PO SCH (07:45)
[2018-09-19] MEDS: MULTIVITAMIN TAB PO SCH (07:45)
[2018-09-19] MEDS: RIVAROXABAN 20 MG TAB PO SCH (07:45)
[2018-09-19] MEDS: FUROSEMIDE 40 MG TAB PO SCH (07:45)
[2018-09-19] MEDS: SIMVASTATIN 20 MG TAB PO SCH (07:46)
[2018-09-19] MEDS: METOPROLOL SUCC 50MG EXT REL TAB PO SCH (07:47)
[2018-09-19] MEDS ORDERED: SIMVASTATIN 40 MG TAB PO SCH (09:00)
--- NOTE | 2018-09-19 09:29 | Cardiology Progress Note ---
Date of Service September 19, 2018 He feels better this morning. He has ambulated in the hallway. He denies any chest pain or chest pressure with activity he denies significant shortness of breath. Denies any light his dizziness presyncope or syncope. He denies any lower extremity edema. His appetite is stable he did have breakfast this morning. radiation monitor still reveals that he is in atrial flutter with rates between 100 110 bpm. His His blood pressure was in the 90s systolic last night. Physical Exam 2 Vital Signs (Past 24 Hours): Last Vital Signs Temp 36.2 C L 09/19/18 07:47 Pulse 106 H 09/19/18 07:47 Resp 18 09/19/18 07:47 BP 120/78 09/19/18 07:47 Pulse Ox 93 09/19/18 07:47 PHYSICAL EXAMINATION: GENERAL: He is awake, alert, oriented x3, looks younger than his stated age. HEENT: Moderately reduced carotid upstrokes, no evidence of carotid bruits. Jugular venous pressure did not appear elevated. His sclerae are anicteric. His hearing is normal. LUNGS: Clear to auscultation bilaterally. No rales, rhonchi or wheezing. HEART: Regular rate and rhythm (tachycardic/atrial flutter). There were no appreciable murmurs, rubs or gallops. ABDOMEN: Soft, nontender, chronically distended. Positive bowel sounds. EXTREMITIES: No clubbing, cyanosis or edema. PSYCHIATRIC: His affect appeared appropriate. NEUROLOGIC: Grossly nonfocal. IMPRESSION: 1. New onset atrial flutter. 2. History of bioprosthetic aortic and mitral valve prostheses. 3. Low normal left ventricular systolic function. 4. Dilated right ventricle with RV dysfunction. 5. Shortness of breath secondary to the loss of his atrial kick and mild heart failure symptoms. 6. Chronic anticoagulation with Xarelto As I discussed with Renny his heart rate is still fast even though he is feeling better. This will increase his risk of heart failure. In addition with a loss of his atrial kick this will increase his risk of shortness of breath, dyspnea and heart failure. We discussed options. I did initiate amiodarone 200 mg BID last night. His blood pressures are on the low side which will preclude our ability to increase his beta-blockers any further. He remains on Xarelto. He would like to discuss his options with his daughter. my recommendation was to consider cardioversion. He could wait 7-10 days and see if with amiodarone loading he converted spontaneously on his own although the chance of this happening is relatively small the other option is to consider electrical cardioversion while he is in the hospital or wait till next week as an outpatient.. We discussed risks and benefits of cardioversion in detail including less than 1 % risk of stroke, dying, heart attack, skin vazquez and hypotension. He had breakfast this morning if they wish to proceed with cardioversion we could try to cardiovert him this afternoon. If not he could be scheduled in the [employer] at 745 tomorrow morning.
--- NOTE | 2018-09-19 13:29 | Hospitalist Progress Note ---
Date of Service September 19, 2018 Assessment & Plan (1) Atrial flutter: Patient with history of atrial fibrillation, atrial arrhythmias and mitral and aortic valve disease s/p MVR and AVR, dual-chamber pacemaker in place. He presents with dyspnea at rest, found to be in atrial flutter which is new for him. Electrolytes and TSH WNL. Cardiology has seen him and discussed options for treatment. Initially attempted a rate control strategy with an increased dose of Toprol, however his blood pressure was low and his rate was not controlled. Plan now for DC cardioversion in the morning ECHO with CHF as below -Return Toprol XL back to 50mg once daily due to low blood pressures with twice daily dosing -Can likely restart losartan tomorrow but will wait to see what renal function is in the morning -appreciate Cardiology consultation -continue telemetry -Continue Xarelto for anticoagulation. (2) Dyspnea: Likely secondary to underlying arrhythmia, mild degree of CHF in setting of rapid HR. Now very mild and only with heavy exertion * Lasix 20mg IV given * Continue Lasix 40mg po daily * Monitor output (3) CAD (coronary artery disease): Cardiac catheterization October 2012 with a 50-60% lesion within the OM of the circumflex, 40% proximal LAD lesion. Nonobstructing CAD. No CP, no evidence of myocardial ischemia by labs or EKG * Continue ASA, metoprolol and Simvastatin * Will likely restart losartan tomorrow (4) Hypertension: Blood pressure mildly low with increased dose of Toprol last night * Continue Metoprolol at decreased dose back to 50 once daily as above * Adding back home losartan tomorrow as above (5) History of mitral valve prosthesis: Status post mitral valve replacement of 33 mm bioprosthetic mitral valve, January 2012 secondary to severe mitral regurgitation. 3. Status post repair of a large paravalvular mitral regurgitant leak with 3 plugs at [facility] February 2013. (6) History of aortic valve replacement: Status post aortic valve replacement with a 23 mm Brad-Aguirre bioprosthetic aortic valve at [facility], February 2010. (7) Cardiac pacemaker in situ: Complete heart block, status post [employer] Sensia dual chamber pacemaker January 2012. (8) Paroxysmal atrial fibrillation: h/o such, on metoprolol and AC with Xarelto (9) Nonischemic cardiomyopathy: History of a nonischemic cardiomyopathy with an echo this admission suggesting an EF in the range of 50% with a septal abnormality. (10) Thyroid nodule: noted -Check TSH in the morning (11) Hyperlipidemia: continue statin (12) Acute on chronic combined systolic and diastolic heart failure: LVEF low normal at 50%, with RV wall hypokinesis and sys dysfunction, mod increase RVSP indicating PHTN With dyspnea on admission, was given one dose IV lasix, now improved Likely exacerbated by rapid A-flutter -continue daily home po lasix -follow I/Os, daily weights (13) DVT prophylaxis: Xarelto Dispo-remain on tele, plan for DC cardioversion in the morning and then likely discharge later tomorrow afternoon Subjective Patient feels a little dyspneic with fast walking but otherwise feels fine. Denies chest pain. Feels his leg swelling is improved. No nausea or abdominal pain. Telemetry with atrial flutter with rates in the low 100s. I discussed the case with cardiology today-plan for DC cardioversion in the morning Review of Systems All systems reviewed & are unremarkable except as noted in HPI & below Physical Exam 2 Vital Signs (Past 24 Hours): Last Vital Signs Temp 36.7 C 09/19/18 12:30 Pulse 107 H 09/19/18 12:30 Resp 20 09/19/18 12:30 BP 100/66 09/19/18 12:30 Pulse Ox 94 09/19/18 12:30 Constitutional: WD/WN, vitals as above Eyes: PERRL, conjunctivae normal, anicteric sclerae ENMT: external ear and nose normal, oropharynx normal Neck: trachea midline, no thyromegaly Respiratory: normal respiratory effort, lungs clear to auscultation Cardiovascular: Rate/Rhythm: + tachycardic; + abnormal rhythm (irreg irreg) Heart Sounds: no murmur Extremities: + edema (trace pitting edema legs bilat improved from previous) Gastrointestinal (Abdomen): normal bowel sounds, soft, nontender, no hepatosplenomegaly Musculoskeletal: Extremities: extremities normal to inspection; no cyanosis and no clubbing Skin: no rashes, warm and dry Neurologic: moves all extremities and awake; no focal motor deficits Psychiatric: A+Ox3, euthymic affect Results & Data Laboratory Results 09/19/18 09/19/18 Range/Units 05:47 05:47 WBC 8.11 (4.8-10.8) K/uL RBC 4.71 (4.7-6.1) M/uL Hgb 14.2 (14.0-18.0) g/dL Hct 42.5 (42-52) % MCV 90.2 (80-100) fL MCH 30.1 (25-34) pg MCHC 33.4 (32-36) g/dL RDW Std Deviation 43.2 (36.4-46.3) fL RDW Coeff of Radha 13.1 (11.5-14.5) % Plt Count 123 L (130-400) K/uL MPV 11.0 H (7.4-10.4) fL Immature Gran % (Auto) 0.2 % Neut % (Auto) 51.2 % Lymph % (Auto) 34.5 % [place] % (Auto) 9.4 % Eos % (Auto) 4.3 % Baso % (Auto) 0.4 % Immature Gran # (Auto) 0.02 (0.00-0.02) K/uL Neut # (Auto) 4.15 (1.4-6.5) K/uL Lymph # (Auto) 2.80 (1.2-3.4) K/uL [place] # (Auto) 0.76 H (0.11-0.59) K/uL Eos # (Auto) 0.35 (0-0.5) K/uL Baso # (Auto) 0.03 (0-0.2) K/uL Sodium 139 (136-145) mmol/L Potassium 3.9 (3.5-5.1) mmol/L Chloride 105 (98-107) mmol/L Carbon Dioxide 28 (21-32) mmol/L Anion Gap 7.0 (3-11) BUN 40 H (7-18) mg/dl Creatinine 1.44 H (0.6-1.4) mg/dl Est Cr Clr Drug Dosing 50.7 ml/min Est GFR ( Amer) 52.4 Est GFR (Non-Af Amer) 45.2 BUN/Creatinine Ratio 28.0 H (10-20) Glucose 92 (70-99) mg/dl Calcium 8.4 L (8.5-10.1) mg/dl Magnesium 2.3 (1.8-2.4) mg/dl _ (1) CAD (coronary artery disease) Associated angina: without angina Coronary Disease-Associated Artery/Lesion type: [place] artery [place] vs. transplanted heart: [place] heart Qualified Code (s): I25.10 - Atherosclerotic heart disease of [place] coronary artery without angina pectoris (2) Atrial flutter Atrial flutter type: unspecified Qualified Code(s): I48.92 - Unspecified atrial flutter (3) Dyspnea Dyspnea type: shortness of breath Qualified Code(s): R06.02 - Shortness of breath; R06.00 - Dyspnea, unspecified; R06.01 - Orthopnea (4) Hyperlipidemia Hyperlipidemia type: unspecified Qualified Code(s): E78.5 - Hyperlipidemia, unspecified (5) Hypertension Hypertension type: essential hypertension Qualified Code(s): I10 - Essential (primary) hypertension
--- NOTE | 2018-09-19 14:48 | Anesthesiology Consultation ---
Date of Service September 19, 2018 Assessment & Plan (1) Encounter for pre-operative examination: Chart Review Chart Review: Acceptable Risk for Surgery and rail grinder initiated rail grinder initiated for planned cardioversion on 09/20/18 with Cardiology. Patient will be assessed by anesthesia on the morning of procedure. Patient should remain NPO after midnight other than a sip of water with medications. Consults Requested none History Surgery Operation Date: 09/20/18 07:45 Proposed Procedures p Cardioversion Market Risk Manager w/Anesthesia - Seb Nuno MD Height/Weight Height: 5 ft 8 in Weight: 120 kg Allergies Allergy/AdvReac Type Severity Reaction Status Date / Time adhesive Allergy Mild RASH Verified 09/17/18 20:50 Medications Home Medications Medication Instructions Recorded Confirmed Last Taken albuterol sulfate [ProAir HFA] 2 puff INHALATION Q4H PRN 09/17/18 09/17/18 Unknown aspirin [Aspir-81] 81 mg PO DAILY 09/17/18 09/17/18 Unknown furosemide 40 mg PO DAILY 09/17/18 09/17/18 Unknown losartan 50 mg PO DAILY 09/17/18 09/17/18 Unknown metoprolol succinate 50 mg PO DAILY 09/17/18 09/17/18 Unknown multivitamin [Multiple Vitamins] 1 tab PO DAILY 09/17/18 09/17/18 Unknown rivaroxaban [Xarelto] 20 mg PO DAILY 09/17/18 09/17/18 Unknown simvastatin 40 mg PO DAILY 09/17/18 09/17/18 Unknown zolpidem 5 mg PO HS PRN 09/17/18 09/17/18 Unknown Active Medications Generic Name Dose Route Start Last Admin Trade Name Rehanq PRN Reason Stop Dose Admin Amiodarone HCl 200 mg 09/18/18 21:00 09/19/18 07:45 Cordarone PO 10/18/18 20:59 200 mg BID SANTA Administration Aspirin 81 mg 09/18/18 09:00 09/19/18 07:45 Ecotrin Ectab PO 10/18/18 08:59 81 mg DAILY SANTA Administration Furosemide 40 mg 09/18/18 09:00 09/19/18 07:45 Lasix PO 10/18/18 08:59 40 mg DAILY SANTA Administration Hydroxyzine HCl 25 mg 09/17/18 23:49 09/18/18 00:26 Vistaril PO 10/17/18 23:48 25 mg HS PRN Administration Insomnia Multivitamins 1 tab 09/18/18 09:00 09/19/18 07:45 Multivitamin Tab PO 10/18/18 08:59 1 tab DAILY SANTA Administration Rivaroxaban 20 mg 09/18/18 09:00 09/19/18 07:45 Xarelto PO 10/18/18 08:59 20 mg DAILY SANTA Administration Simvastatin 20 mg 09/19/18 09:00 09/19/18 07:46 Zocor PO 10/19/18 08:59 20 mg DAILY SANTA Administration Past Medical History Medical History Carotid bruit Morbid obesity with BMI of 40.0-44.9, adult suspected GALINA with obesity hypoventilation syndrome - refuses sleep study Hyperlipidemia Acute on chronic combined systolic and diastolic heart failure Hyperlipidemia Thyroid nodule Nonischemic cardiomyopathy EF 50% Paroxysmal atrial fibrillation 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 CAD (coronary artery disease) Atrial flutter (Acute) Hypertension (Chronic) Atrial fibrillation CAD (coronary artery disease) Past Family History Family History Other Cancer Heart disease Hypertension Past Surgical History Surgical History History of appendectomy History of aortic valve replacement History of mitral valve prosthesis H/O aortic valve replacement (Resolved) H/O mitral valve replacement (Resolved) History of permanent cardiac pacemaker placement history of complete heart block prior to placement in January 2012 Social History Smoking Status: Never smoker tobacco type: smokeless tobacco Do You Dip or Chew Tobacco: Yes (1 can every 3 weeks) Hx Alcohol Use: No Hx Substance Use: No Physical Exam Vital Signs Last Vital Signs Temp 36.7 C 09/19/18 12:30 Pulse 107 H 09/19/18 12:30 Resp 20 09/19/18 12:30 BP 100/66 09/19/18 12:30 Pulse Ox 94 09/19/18 12:30 Testing Electrocardiogram Date: 09/17/18 A. flutter with 2:1 AV conduction, vent. rate of 106 Chest X-Ray Date: 09/17/18 IMPRESSION: 1. Cardiomegaly and aortic tortuosity/ectasia 2. Mild basilar interstitial thickening (atelectatic versus mild edema versus infectious/inflammatory) Echocardiogram Date: 09/18/18 EF: 50-55 LV Function: LV systolic function is low normal Other Findings: + atrial enlargement (left atrium severely dilated, right atrium moderately dilated) and + LVH (severe concentric) Septal motion consistent with conduction abnormality, RV dilated and RV wall hypokinetic, bioprosthetic MV with trace MR, bioprosthetic AV with normal gradient and no significant AR Other Testing Cardiac catheterization October 2012 with a 50-60% lesion within the OM of the circumflex, 40% proximal LAD lesion. Laboratory Results 09/19/18 05:47 09/19/18 05:47
[2018-09-20] MEDS ORDERED: PROPOFOL IV EMULSION 10 MG/ML 20 ML VIAL IV ONE (07:17)
[2018-09-20] MEDS ORDERED: LIDOCAINE HCL 2% MPF (LOCAL) 5 ML VIAL INFIL ONE (07:17)
[2018-09-20 07:27] LABS: BUN Creatinine Ratio 27.1 (10-20); Calcium 8.6 mg/dl (8.5-10.1); Creatinine Clr Calc Pharmacy 49.2 ml/min; Est GFR (African American) 51.2; Est GFR (Non-African American) 44.2; Magnesium 2.3 mg/dl (1.8-2.4); Potassium 3.9 mmol/L (3.5-5.1)
--- NOTE | 2018-09-20 08:10 | Anesthesiology Progress Note ---
Date of Service September 20, 2018 Anesthesia Post Procedure Vital Signs Vital Signs: Temp Pulse Pulse Pulse Resp BP Pulse Ox 09/20/18 03:24 36.6 C 105 H 17 92/59 L 94 09/19/18 23:52 36.7 C 105 H 18 115/69 93 09/19/18 23:25 104 H 09/19/18 19:00 36.7 C 108 H 18 110/69 09/19/18 15:29 36.5 C 104 H 22 102/70 93 09/19/18 12:30 36.7 C 107 H 20 100/66 94 Notes Mental Status: alert / awake / arousable and participated in evaluation Nausea / Vomiting: adequately controlled Pain: adequately controlled Airway Patency, RR, SpO2: stable & adequate BP & HR: stable & adequate Hydration State: stable & adequate Anesthetic Complications: no major complications apparent and Pt Satisfied with anesthetic care
--- NOTE | 2018-09-20 08:11 | Procedure Note ---
Procedure Note Date of Service September 20, 2018 Note Procedure performed: Cardioversion Indication: Patient with prior history of valve replacement in atypical atrial flutter with rapid ventricular response Staff varnishing unit tool setter: Derek Nuno MD Procedure in detail: The patient was informed of the risks benefits and alternatives to the intended procedure. He understood such which proceed. The was taken to the cardiac catheterization suite holding area. A general anesthetic was administered by the Anesthesiology Service. Once appropriately anesthetized, the patient was cardioverted using 30 joules delivered in a biphasic fashion. This returned the patient to sinus rhythm. The patient tolerated procedure well, there were no immediate complications. Patient was neurologically intact subsequent to the procedure. Impression: Successful cardioversion from atrial flutter to normal sinus rhythm
[2018-09-20] MEDS: MULTIVITAMIN TAB PO SCH (08:36)
[2018-09-20] MEDS: AMIODARONE 200 MG TAB PO SCH (08:36)
[2018-09-20] MEDS: SIMVASTATIN 20 MG TAB PO SCH (08:37)
[2018-09-20] MEDS: FUROSEMIDE 40 MG TAB PO SCH (08:37)
[2018-09-20] MEDS: ASPIRIN 81 MG ECTAB PO SCH (08:37)
[2018-09-20] MEDS: RIVAROXABAN 20 MG TAB PO SCH (08:37)
--- NOTE | 2018-09-20 08:59 | Cardiology Progress Note ---
Date of Service September 20, 2018 He is status post cardioversion. He feels well. He denies any lightheadedness dizziness presyncope or syncope. Denies any chest pain or chest pressure. Is answering questions appropriately. Physical Exam 2 Vital Signs (Past 24 Hours): Last Vital Signs Temp 36.5 C 09/20/18 08:33 Pulse 63 09/20/18 08:33 Resp 18 09/20/18 08:33 BP 117/77 09/20/18 08:33 Pulse Ox 94 09/20/18 03:24 PHYSICAL EXAMINATION: GENERAL: He is awake, alert, oriented x3, looks younger than his stated age. HEENT: Moderately reduced carotid upstrokes, no evidence of carotid bruits. His hearing is normal. LUNGS: Clear to auscultation bilaterally. No rales, rhonchi or wheezing. HEART: Regular rate and rhythm. There were no appreciable murmurs, rubs or gallops. ABDOMEN: Soft, nontender, chronically distended. Positive bowel sounds. EXTREMITIES: No clubbing, cyanosis or edema. PSYCHIATRIC: His affect appeared appropriate. NEUROLOGIC: Grossly nonfocal. IMPRESSION: 1. New onset atypical atrial flutter. 2. History of bioprosthetic aortic and mitral valve prostheses. 3. Low normal left ventricular systolic function. 4. Dilated right ventricle with RV dysfunction. 5. Shortness of breath secondary to the loss of his atrial kick and mild heart failure symptoms. 6. Chronic anticoagulation with Xarelto He is status post cardioversion back to sinus rhythm/atrial paced rhythm. He is unaware of any palpitations or fluttering. He can be discharged home later today with the addition of amiodarone 200 mg twice daily times a month and then will reduce the dose to 200 mg daily. We will arrange for follow-up in the office with an EKG in approximately 10 days time. We will continue to follow in our pacer clinic. He will remain on anticoagulation long-term with Xarelto. Given his low blood pressures at night I would avoid his angiotensin receptor olivia upon discharge we will continue his beta-olivia therapy as he was on prehospital. All this was discussed with Dr. ORTIZ as well as the hospitalist team.
[2018-09-20] MEDS ORDERED: METOPROLOL SUCC 50MG EXT REL TAB PO SCH (09:00)
--- NOTE | 2018-09-20 09:54 | Discharge Summary ---
Date of Service September 20, 2018 Admission HPI Per Admitting Provider Mr. Ocampo is a pleasant 82yo C male with history of non-obstructive CAD, atrial fibrillation on anticoagulation, bioprosthetic MVR and AVR and dual chamber pacer in place. He follows with Dr. Newton. Patient was working in the garage this evening when he became acutely short of breath. He sat down to rest with minimal relief in symptoms. He then carried a box of tools upstairs and became more dyspneic. He laid on the floor with no improvement in symptoms. 911 was called and he was sent to the ER. Patient denies chest pain, cough, fevers, orhtopnea or edema. He does report occasional palpitations over the last few months as well as strong palpitations this evening during the episode of dyspnea. Patient was given a fit-bit for Harini - son reports that his resting heart rate has been in the 60's all week. Patient with no additional complaints at this time. Upon arrival to the ER he was found to be in new onset atrial flutter. Blood pressure stable. Patient asymptomatic. ER Course: Lasix 20mg IV Principal Diagnosis Rapid atrial flutter Discharge Exam Constitutional WD/WN, vitals as above Eyes PERRL, conjunctivae normal, anicteric sclerae ENMT external ear and nose normal, oropharynx normal Neck trachea midline, no thyromegaly Respiratory normal respiratory effort, lungs clear to auscultation Cardiovascular Rate/Rhythm: regular rate and regular rhythm Heart Sounds: no murmur Extremities: + edema (trace pitting edema legs bilat) Gastrointestinal (Abdomen) normal bowel sounds, soft, nontender, no hepatosplenomegaly Musculoskeletal Extremities: extremities normal to inspection; no cyanosis and no clubbing Skin no rashes, warm and dry Neurologic moves all extremities and awake; no focal motor deficits Psychiatric A+Ox3, euthymic affect Discharge Data Allergies Allergy/AdvReac Type Severity Reaction Status Date / Time adhesive Allergy Mild RASH Verified 09/17/18 20:50 Consultations Cardiology Procedures Performed Operation Date: 09/20/18 07:45 Actual Procedures p Cardioversion(Not Applicable) - Seb Nuno MD Chest x-ray Echocardiogram Hospital Course (1) Atrial flutter: Patient with history of atrial fibrillation, atrial arrhythmias and mitral and aortic valve disease s/p MVR and AVR, dual-chamber pacemaker in place. He presents with dyspnea at rest, found to be in atrial flutter which is new for him. Electrolytes and TSH WNL. Cardiology has seen him and discussed options for treatment. Initially attempted a rate control strategy with an increased dose of Toprol, however his blood pressure was low and his rate was not controlled. He then underwent DC cardioversion on 09/20 which was successful ECHO with CHF as below -Continue Toprol XL 50mg once daily -We will DC losartan upon discharge due to low normal blood pressures -appreciate Cardiology consultation -Continue Xarelto for anticoagulation. -Started on amiodarone 200 mg p.o. twice daily times 1 month and reduce down to amiodarone 200 mg once daily -Follow-up with cardiology in the office with an EKG in 10 days. (2) Dyspnea: Likely secondary to underlying arrhythmia, mild degree of CHF in setting of rapid HR. now resolved * Lasix 20mg IV given * Continue Lasix 40mg po daily * (3) CAD (coronary artery disease): Cardiac catheterization October 2012 with a 50-60% lesion within the OM of the circumflex, 40% proximal LAD lesion. Nonobstructing CAD. No CP, no evidence of myocardial ischemia by labs or EKG * Continue ASA, metoprolol and Simvastatin * Discontinuing losartan as above (4) Hypertension: Blood pressure mildly low * Continue Toprol XL 50 mg once daily * DC and losartan as above (5) History of mitral valve prosthesis: Status post mitral valve replacement of 33 mm bioprosthetic mitral valve, January 2012 secondary to severe mitral regurgitation. 3. Status post repair of a large paravalvular mitral regurgitant leak with 3 plugs at [facility] February 2013. (6) History of aortic valve replacement: Status post aortic valve replacement with a 23 mm Brad-Aguirre bioprosthetic aortic valve at [facility], February 2010. (7) Cardiac pacemaker in situ: Complete heart block, status post [employer] Sensia dual chamber pacemaker January 2012. (8) Paroxysmal atrial fibrillation: h/o such, on metoprolol and AC with Xarelto (9) Nonischemic cardiomyopathy: History of a nonischemic cardiomyopathy with an echo this admission suggesting an EF in the range of 50% with a septal abnormality. (10) Thyroid nodule: noted -TSH here is normal (11) Hyperlipidemia: continue statin (12) Acute on chronic combined systolic and diastolic heart failure: LVEF low normal at 50%, with RV wall hypokinesis and sys dysfunction, mod increase RVSP indicating PHTN With dyspnea on admission, was given one dose IV lasix, now resolved Lower extremity edema improved Likely exacerbated by rapid A-flutter -continue daily home po lasix -follow daily weights upon discharge, low-sodium diet (13) DVT prophylaxis: Xarelto Dispo-stable for discharge to home today Total Time Total Time Spent Total Time Spent (In Minutes): Greater than 30 minutes Total Time Includes: Examination of the Patient, Discharge Planning and Medication Reconciliation Discharge Plan Discharge Items Patient Disposition: Home - Self-Care Reason For Visit: NEW ONSET AFLUTTER Discharge Diagnosis: Atrial flutter Condition: Good Discharge Goals: Decrease discomfort, Diagnostic testing, Improve disease control, Learn about illness and Therapeutic intervention Activity: Resume your previous activity Lifting: Gradually increase as tolerated Bathing: No limitations Exercise/Sports: Gradually increase as tolerated Driving/Machine Use: No limitations Non-emergency contact: Primary Care Provider and Noodle Maker Call non-emergency contact if: you have any medication questions and your symptoms worsen Follow-up/Referrals: Efra Hobson III, MD [Primary Care Provider] - 10/03/18 1:50 pm (Please, follow up with Dr. Hobson on October 03 at 1:50 pm. *If you need to change this appointment, call the office at [phone].) Jeevan Newton, [Family Provider] - 10/08/18 3:10 pm Diet: Heart Healthy Add Provider Instructions: You were admitted with a rapid heartbeat called atrial flutter. Attempts were initially made to lower your heart rate with increased doses of your medication but this did not work. You then had an electrical cardioversion back to a regular rhythm which was successful. You were started on a new medication called amiodarone which is to be taken twice daily for 1 month and then reduced to once daily after that. Your losartan was stopped. Please follow-up with cardiology-Dr. Guo's office should be contacting you to schedule an appointment in about 10 days. Please also follow-up with your primary care physician as scheduled for you. Prescriptions: New amiodarone 200 mg Tablet 200 mg PO BID Qty: 60 RF: 0 Continue aspirin [Aspir-81] 81 mg Tablet,Delayed Release (Dr/Ec) 81 mg PO DAILY RF: 0 multivitamin [Multiple Vitamins] Tablet 1 tab PO DAILY RF: 0 metoprolol succinate 50 mg tablet extended release 24 hr 50 mg PO DAILY RF: 0 albuterol sulfate [ProAir HFA] 90 mcg/actuation Hfa Aerosol Inhaler 2 puff Inhalation Q4H PRN (Reason: Shortness Of Breath Or Wheezing) RF: 0 simvastatin 40 mg tablet 40 mg PO DAILY RF: 0 rivaroxaban [Xarelto] 20 mg tablet 20 mg PO DAILY RF: 0 furosemide 40 mg tablet 40 mg PO DAILY RF: 0 zolpidem 5 mg Tablet 5 mg PO HS PRN (Reason: Sleep) RF: 0 Discontinued losartan 50 mg tablet 50 mg PO DAILY RF: 0 Stand-Alone Forms: [facility] Discharge Orders: Discharge Order (Routine); Ordered 09/20/18 Ordered By: Deedee West Admission Data Admit Date/Time: 09/17/18 21:45 Attending Provider: Deedee West Admit Provider: Elzbieta Stout Primary Care Provider: Efra Hobson III Other Providers: Elzbieta Stout ; Jeevan Newton Service: Telemetry Other Pending Studies at Discharge: No
== END 2018-09-20 13:52 | disposition home or self-care (01) ==
LOC: 2N 17:12 → ED 17:12 → SUATTDRO 21:45 → 2N 23:12

== ENCOUNTER 2018-10-30 06:25 | Inpatient (IN) ==
[2018-10-30 07:09] LABS: Basophils # (auto) 0.04 K/uL (0-0.2); Basophils % (auto) 0.4 %; Eosinophils # (auto) 0.26 K/uL (0-0.5); Eosinophils % (auto) 2.5 %; Hematocrit (blood only) 44.7 % (42-52); Immature Granulocytes # (auto) 0.03 K/uL (0.00-0.02); Immature Granulocytes % (auto) 0.3 %; Lymphocytes # (auto) 2.72 K/uL (1.2-3.4); Lymphocytes % (auto) 26.7 %; Mean Corpuscular Hgb Conc 33.6 g/dL (32-36); Mean Corpuscular Volume 92.2 fL (80-100); Mean Platelet Volume 10.8 fL (7.4-10.4); Monocytes # (auto) 0.63 K/uL (0.11-0.59); Monocytes % (auto) 6.2 %; Neutrophils # (auto) 6.52 K/uL (1.4-6.5); Neutrophils % (auto) 63.9 %; Platelet Count 123 K/uL (130-400); RDW Coefficient of Variation 13.5 % (11.5-14.5); RDW Standard Deviation 45.2 fL (36.4-46.3); Red Blood Count 4.85 M/uL (4.7-6.1)
[2018-10-30] MEDS: METOPROLOL TARTRATE 1 MG/ML VIAL IV PRN ×2 (07:14→07:50)
[2018-10-30 07:16] LABS: Alanine Aminotransferase 29 U/L (12-78); Albumin Level 3.9 gm/dl (3.4-5.0); Aspartate Aminotransferase 26 U/L (15-37); BUN Creatinine Ratio 24.9 (10-20); Blood Urea Nitrogen 35 mg/dl (7-18); Calcium 9.2 mg/dl (8.5-10.1); Carbon Dioxide 27 mmol/L (21-32); Chloride 104 mmol/L (98-107); Creatinine Clr Calc Pharmacy 50.5 ml/min; Est GFR (African American) 52.9; Est GFR (Non-African American) 45.7; Glucose 140 mg/dl (70-99); Magnesium 2.2 mg/dl (1.8-2.4); Potassium 4.2 mmol/L (3.5-5.1); Sodium 138 mmol/L (136-145)
[2018-10-30 07:27] LABS: Albumin Globulin Ratio 1.2 (0.9-2); Alkaline Phosphatase 107 U/L (45-117); Bilirubin,Total 0.6 mg/dl (0.2-1); Globulin 3.3 gm/dl (2.5-4.0); Total Protein 7.2 gm/dl (6.4-8.2); Troponin I < 0.015 ng/ml (0-0.045)
[2018-10-30 07:35] LABS: INR 1.5 (0.9-1.1); Partial Thromboplastin Ratio 1.5; Partial Thromboplastin Time 39.9 Seconds (21.0-31.0); Prothrombin Time 15.1 Seconds (9.0-12.0)
--- NOTE | 2018-10-30 07:52 | XRay Report ---
XR chest 1V portable CLINICAL HISTORY: afib, SOB COMPARISON STUDY: Chest radiograph September 17, 2018. FINDINGS: There are median sternotomy wires and a right-sided dual-lead pacer. Cardiomegaly is unchan ged. Mediastinal widening is unchanged. There is no pneumothorax. There is a possible small right ple ural effusion. Bibasilar opacities have increased. IMPRESSION: 1. Increase in bibasilar opacities. Pneumonia is favored. Atelectasis or pulmonary edema could appear similar. Radiographic follow up is recommended. 2. Stable cardiomegaly. 3. Small right pleural effusion. Electronically signed by: Jareth Wilkins M.D. 10/30/2018 7:51 AM
[2018-10-30] MEDS ORDERED: dilTIAZem HCl 5 MG/ML 5 ML VIAL IV STA (08:23)
[2018-10-30] MEDS ORDERED: DiphenhydrAMINE HCL 50 MG/ML VIAL ONE (08:34)
[2018-10-30] MEDS ORDERED: ONDANSETRON INJ 2 MG/ML 2 ML VIAL IV PRN (09:47)
[2018-10-30] MEDS ORDERED: ACETAMINOPHEN 325 MG TAB PO PRN (09:47)
[2018-10-30] MEDS ORDERED: ZOLPIDEM TARTRATE 5 MG TAB PO PRN (09:50)
[2018-10-30] MEDS ORDERED: FUROSEMIDE 40 MG TAB PO STA (09:50)
--- NOTE | 2018-10-30 10:49 | History & Physical Report ---
Date of Service October 30, 2018 Assessment & Plan (1) Atrial flutter: - Admit to tele - In the ER pt received metoprolol IV x 2 doses without effect. He had been started on a cardizem gtt in the ER which converted him to a ventricular paced rhythm however he did develop a red rash around the IV site. He has been administered benadryl for this. - Of note the pt was supposed to be taking amiodarone, however missed several doses and then was restarted on half his normal home dose which likely led to this episode of aflutter. - Electrolytes and TSH WNL. - Consult cards: Dr. Newton - Pt was previously admitted in Sep 2018 and underwent DC cardioversion on 09/20 which was successful - ECHO with CHF as below - Continue Toprol XL 50mg once daily, amiodarone 200 mg daily. Cards recs as above. - Continue Xarelto for anticoagulation. (2) Dyspnea: - Likely secondary to underlying arrhythmia, mild degree of CHF in setting of rapid HR. now resolved - Resume home Lasix 40mg po daily (3) CAD (coronary artery disease): - Cardiac catheterization October 2012 with a 50-60% lesion within the OM of the circumflex, 40% proximal LAD lesion. - Nonobstructing CAD. No CP, no evidence of myocardial ischemia by labs or EKG - Continue ASA, metoprolol and Simvastatin (4) Hypertension: - Blood pressure mildly low - will hold dose of lasix today and restart tomorrow on 10/31 pending good BPs. - Continue Toprol XL 50 mg once daily (5) History of aortic valve replacement: - S/p aortic valve replacement with a 23 mm Brad-Aguirre bioprosthetic aortic valve at [facility], February 2010. (6) History of mitral valve prosthesis: - Status post mitral valve replacement of 33 mm bioprosthetic mitral valve, January 2012 secondary to severe mitral regurgitation. Status post repair of a large paravalvular mitral regurgitant leak with 3 plugs at [facility] February 2013. (7) Cardiac pacemaker in situ: - Complete heart block, status post [employer]onic Sensia dual chamber pacemaker January 2012. (8) Paroxysmal atrial fibrillation: -stable and rate controlled on metoprolol and Xarelto (9) Carotid bruit: (10) Nonischemic cardiomyopathy: - History of a nonischemic cardiomyopathy with an echo this admission suggesting an EF in the range of 50% with a septal abnormality. (11) Hyperlipidemia: - Cont statin therapy (12) Morbid obesity with BMI of 40.0-44.9, adult: - Continue diet and excercise regimen as tolerated. 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 - Likely exacerbated by rapid A-flutter - continue daily home po lasix - daily weights, strict I/Os - HH/low-sodium diet (14) DVT prophylaxis: - xarelto (15) AAA (abdominal aortic aneurysm): - 4.9 cm, followed by cardiology as above. History of Present Illness Primary Care Provider: Efra Hobson MD This is an 82yo M with PMHx of non-obstructive CAD, atrial fibrillation on anticoagulation, bioprosthetic MVR and AVR and dual chamber pacer in place. He follows with Dr. Newton. Pt was doing well until this morning when he felt uneasy. He notes has missed amiodarone for 4 days, Sunday through yesterday. He denies any chest pain, heaviness, palpitations. He did experience some shortness of breath which was mild in association with exertion this morning, and had one episode of palpitations. He does not feel as bad as he did last time he was admitted. His daughters are present at bedside and support the history. He took all his medications this morning besides for lasix PO. Allergies Allergy/AdvReac Type Severity Reaction Status Date / Time adhesive Allergy Intermediate RASH Verified 10/30/18 09:56 diltiazem [From [facility]] Allergy Rash Verified 10/30/18 09:18 Home Medications Home Medications Medication Instructions Recorded Confirmed Type aspirin [Aspir-81] 81 mg PO HS 09/17/18 10/30/18 History furosemide 40 mg PO QAM 09/17/18 10/30/18 History metoprolol succinate 50 mg PO QAM 09/17/18 10/30/18 History multivitamin [Multiple Vitamins] 1 tab PO HS 09/17/18 10/30/18 History rivaroxaban 20 mg PO QAM 09/17/18 10/30/18 History simvastatin 40 mg PO HS 09/17/18 10/30/18 History zolpidem 5 mg PO HS PRN 09/17/18 10/30/18 History amiodarone 200 mg PO BID #60 tab 09/20/18 10/30/18 Rx Past Med/Surg History Medical History AAA (abdominal aortic aneurysm) Systolic and diastolic CHF, acute on chronic Carotid bruit Morbid obesity with BMI of 40.0-44.9, adult suspected GALINA with obesity hypoventilation syndrome - refuses sleep study Hyperlipidemia Thyroid nodule Nonischemic cardiomyopathy EF 50% Paroxysmal atrial fibrillation 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 CAD (coronary artery disease) Hypertension (Chronic) Acute on chronic combined systolic and diastolic heart failure Atrial fibrillation Atrial flutter CAD (coronary artery disease) Surgical History History of appendectomy History of aortic valve replacement History of mitral valve prosthesis H/O aortic valve replacement (Resolved) H/O mitral valve replacement (Resolved) History of permanent cardiac pacemaker placement history of complete heart block prior to placement in January 2012 Family History Other Cancer Heart disease Hypertension Social History Preferred Language: Slovak Beliefs That Will Affect Care: None Current Living Situation: Family Other Information That Helps Us Care for You: No Feels Safe at Home: Yes Safety Concerns: Feels Safe At This Time Smoking Status: Never smoker Hx Alcohol Use: No Hx Substance Use: No Review of Systems Constitutional: no fever, no chills, no sweats and no fatigue Eyes: no diplopia and no worsening vision Ear, Nose, Mouth, Throat: no dizziness, no nasal discharge, no facial pain and no sore throat Respiratory: no cough, no dyspnea and no wheezing Cardiovascular: as per Subjective / HPI; no chest pain, no lightheadedness and no syncope Gastrointestinal: no nausea, no vomiting and no constipation no diarrhea Genitourinary (Male): no dysuria, no urinary frequency, no urinary hesitancy and no hematuria Musculoskeletal: no back pain, no joint pain, no swelling and no muscle weakness Integumentary: no rash, no lesions and no wounds Neurologic: no gait abnormality, no falls, no numbness, no dizziness and no syncope Psychiatric: no depression and no anxiety Endocrine: no fatigue Physical Exam Vital Signs (Past 24 Hours): Last Vital Signs Temp 36.4 C L 10/30/18 06:29 Pulse 128 H 10/30/18 07:50 Resp 20 10/30/18 06:29 BP 124/79 10/30/18 07:50 Pulse Ox 95 10/30/18 07:08 Physical Exam: General: awake, alert, no apparent distress, + obese Head: Normocephalic, atraumatic ENT: PERRL, EOMI, no pharyngeal exudate, mucous membranes moist Chest: Clear to auscultation, on room air, no adventitious breath sounds Cardiac: Regular rate and rhythm, +SUSHIL, no JVD, normal peripheral pulses, good capillary refill Abdominal: NABS x 4 quadrants, soft, nontender to palpation, no rebound, guarding or tenderness Extremities: Normal inspection,1+ pitting peripheral edema bilaterally, no erythema, calfs nontender to palpation Psych: Normal mood and affect Neuro: AAO x 3, strength intact bilaterally and related 5/5, no motor deficits, speech is clear, no peripheral sensory deficits Results & Data Diagnostic Findings XR chest 1V portable CLINICAL HISTORY: afib, SOB COMPARISON STUDY: Chest radiograph September 17, 2018. FINDINGS: There are median sternotomy wires and a right-sided dual-lead pacer. Cardiomegaly is unchanged. Mediastinal widening is unchanged. There is no pneumothorax. There is a possible small right pleural effusion. Bibasilar opacities have increased. IMPRESSION: 1. Increase in bibasilar opacities. Pneumonia is favored. Atelectasis or pulmonary edema could appear similar. Radiographic follow up is recommended. 2. Stable cardiomegaly. 3. Small right pleural effusion. ECG Additional Comments: Reviewed multiple EKGs on chart with prior to metoprolol dosing, after each metoprolol IV dose administered, and after cardizem administration. Code Status & VTE Plan Code Status Full Supervising Physician Co-Signing Physician Notes During my face to face encounter, I examined patient and interrogated patient. Patient was asymptomatic and not having chest pain. Will admit to check his troponin. If negative, will discharge home. I reviewed above document and agree with it. (1) CAD (coronary artery disease) Associated angina: without angina Coronary Disease-Associated Artery/Lesion type: [place] artery [place] vs. transplanted heart: [place] heart Qualified Code(s): I25.10 - Atherosclerotic heart disease of [place] coronary artery without angina pectoris (2) Hypertension Hypertension type: essential hypertension Qualified Code(s): I10 - Essential (primary) hypertension
[2018-10-30] MEDS ORDERED: PROPOFOL IV EMULSION 10 MG/ML 20 ML VIAL IV ONE (13:43)
--- NOTE | 2018-10-30 13:47 | Anesthesiology Consultation ---
Date of Service October 30, 2018 Assessment & Plan (1) Encounter for pre-operative examination: Chart Review Chart Review: Acceptable Risk for Surgery and Patient NOT seen in Pre Admission Testing Consults Requested none History Height/Weight Height: 5 ft 8 in Weight: 120.04 kg Allergies Allergy/AdvReac Type Severity Reaction Status Date / Time adhesive Allergy Intermediate RASH Verified 10/30/18 09:56 diltiazem [From Cardizem] Allergy Rash Verified 10/30/18 09:18 Medications Home Medications Medication Instructions Recorded Confirmed Last Taken aspirin [Aspir-81] 81 mg PO HS 09/17/18 10/30/18 10/29/18 furosemide 40 mg PO QAM 09/17/18 10/30/18 10/29/18 metoprolol succinate 50 mg PO QAM 09/17/18 10/30/18 10/30/18 multivitamin [Multiple Vitamins] 1 tab PO HS 09/17/18 10/30/18 10/29/18 rivaroxaban 20 mg PO QAM 09/17/18 10/30/18 10/30/18 simvastatin 40 mg PO HS 09/17/18 10/30/18 10/29/18 zolpidem 5 mg PO HS PRN 09/17/18 10/30/18 Unknown amiodarone 200 mg PO BID #60 tab 09/20/18 10/30/18 10/30/18 AM Active Medications Generic Name Dose Route Start Last Admin Trade Name Freq PRN Reason Stop Dose Admin Metoprolol Tartrate 5 mg 10/30/18 06:56 10/30/18 07:50 Lopressor IV 11/29/18 06:55 5 mg Q5M PRN Administration Tachycardia Past Medical History Medical History AAA (abdominal aortic aneurysm) Systolic and diastolic CHF, acute on chronic Carotid bruit Morbid obesity with BMI of 40.0-44.9, adult suspected GALINA with obesity hypoventilation syndrome - refuses sleep study Hyperlipidemia Thyroid nodule Nonischemic cardiomyopathy EF 50% Paroxysmal atrial fibrillation 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 CAD (coronary artery disease) Hypertension (Chronic) Acute on chronic combined systolic and diastolic heart failure Atrial fibrillation Atrial flutter CAD (coronary artery disease) Past Family History Family History Other Cancer Heart disease Hypertension Past Surgical History Surgical History History of appendectomy History of aortic valve replacement History of mitral valve prosthesis H/O aortic valve replacement (Resolved) H/O mitral valve replacement (Resolved) History of permanent cardiac pacemaker placement history of complete heart block prior to placement in January 2012 Past Anesthesia History No Hx of Anesthesia Complications and No Family Hx of Anesthesia Complications History of PONV No Social History Smoking Status: Never smoker tobacco type: smokeless tobacco Do You Dip or Chew Tobacco: Yes (1 can every 3 weeks) Hx Alcohol Use: No Hx Substance Use: No Exercise / Class Metabolic Activity III < 4 Walking/Shop/Light housework Physical Exam Vital Signs Last Vital Signs Temp 36.6 C 10/30/18 11:26 Pulse 124 H 10/30/18 11:26 Resp 18 10/30/18 11:26 BP 120/83 10/30/18 11:26 Pulse Ox 93 10/30/18 11:26 Testing Electrocardiogram a flutter Laboratory Results 10/30/18 06:50 10/30/18 06:50 PT 15.1 Seconds (9.0-12.0) H 10/30/18 06:50 INR 1.5 (0.9-1.1) H 10/30/18 06:50 APTT 39.9 Seconds (21.0-31.0) H 10/30/18 06:50
--- NOTE | 2018-10-30 14:16 | Procedure Note ---
Procedure Note Date of Service October 30, 2018 Note Procedure performed: Cardioversion Indication: Patient with prior history of valvular heart disease and replacements presented with rapid heart rate and evidence of atrial flutter Staff bending machine set up operator: Derek Nuno MD Procedure in detail: The patient was informed of the risks benefits and alternatives to the intended procedure. He understood such which proceed. He was taken to the cardiac catheterization suite holding area. A general anesthetic was administered by the Anesthesiology Service. Once appropriately anesthetized, the patient was cardioverted using 30 joules delivered in a biphasic fashion. This returned the patient to sinus rhythm. The patient tolerated procedure well, there were no immediate complications. Patient was neurologically intact subsequent to the procedure. Impression: Successful cardioversion from atrial flutter to normal sinus rhythm
--- NOTE | 2018-10-30 15:13 | Anesthesiology Progress Note ---
Date of Service October 30, 2018 Anesthesia Post Procedure Vital Signs Vital Signs: Temp Pulse Pulse Pulse Resp BP BP 10/30/18 15:07 36.6 C 71 18 120/74 10/30/18 14:26 36.7 C 75 17 129/82 10/30/18 11:26 36.6 C 124 H 18 120/83 10/30/18 10:19 103 H 20 94/65 L 10/30/18 09:47 91 H 21 107/90 10/30/18 09:45 97 H 21 10/30/18 09:32 95 H 19 92/60 L 10/30/18 09:30 96 H 20 10/30/18 09:18 95 H 22 120/77 10/30/18 09:16 96 H 19 10/30/18 09:15 95 H 17 10/30/18 09:03 101 H 24 120/77 10/30/18 09:01 100 H 23 79/64 L 10/30/18 09:00 101 H 19 10/30/18 08:45 95 H 21 95/67 L 10/30/18 08:31 95 H 17 10/30/18 08:30 108 H 17 101/75 10/30/18 08:15 128 H 23 10/30/18 08:01 127 H 16 10/30/18 08:00 128 H 28 H 112/88 10/30/18 07:50 128 H 124/79 10/30/18 07:45 128 H 22 10/30/18 07:31 128 H 20 10/30/18 07:30 128 H 22 124/79 10/30/18 07:15 129 H 13 10/30/18 07:14 129 H 106/71 10/30/18 07:11 130 H 30 H 106/71 10/30/18 07:08 10/30/18 07:00 129 H 26 H 10/30/18 06:45 128 H 15 10/30/18 06:44 128 H 17 10/30/18 06:42 128 H 24 106/88 10/30/18 06:29 36.4 C L 128 H 20 109/76 Pulse Ox 10/30/18 15:07 95 10/30/18 14:26 93 10/30/18 11:26 93 10/30/18 10:19 95 10/30/18 09:47 95 10/30/18 09:45 95 10/30/18 09:32 96 10/30/18 09:30 95 10/30/18 09:18 96 10/30/18 09:16 96 10/30/18 09:15 95 10/30/18 09:03 96 10/30/18 09:01 98 10/30/18 09:00 95 10/30/18 08:45 94 10/30/18 08:31 95 10/30/18 08:30 94 10/30/18 08:15 95 10/30/18 08:01 95 10/30/18 08:00 95 10/30/18 07:50 10/30/18 07:45 95 10/30/18 07:31 94 10/30/18 07:30 96 10/30/18 07:15 96 10/30/18 07:14 10/30/18 07:11 95 10/30/18 07:08 95 10/30/18 07:00 95 10/30/18 06:45 95 10/30/18 06:44 10/30/18 06:42 10/30/18 06:29 95 Notes Mental Status: alert / awake / arousable and participated in evaluation Patient Amnestic to Procedure: Yes Nausea / Vomiting: adequately controlled Pain: adequately controlled Airway Patency, RR, SpO2: stable & adequate BP & HR: stable & adequate Hydration State: stable & adequate Anesthetic Complications: no major complications apparent and Pt Satisfied with anesthetic care
--- NOTE | 2018-10-30 15:52 | Emergency Department Note ---
Entered by Aziza Solano acting as a scribe for Nidhi Doan MD History of Present Illness General Chief complaint: Shortness of Breath/Dyspnea Stated complaint: SHORT OF BREATH,PULSE RATE UP Time Seen by Provider: 10/30/18 06:56 Source: patient History of Present Illness Provider complaint: shortness of breath Onset (ago): hour(s) (3 to 4) Location: chest Pain Consistency: + other (persistent) Maximum Pain Intensity: 0 Quality: + other (shortness of breath) Associated symptoms: + other (Denies: chest pain, numbness or tingling in his arms or neck. ) The patient is a 83 year old male who presents to the Emergency Room with complaints of persistent shortness of breath beginning 3 to 4 hours ago. He reports he had difficulty sleeping last night due to his shortness of breath and inability to lie flat. The patient denies recent illness. He denies chest pain or numbness or tingling in his arms or neck. The patient notes he was seen in the ED for afib last month. 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 His daughter notes the patient's amiodarone dose was reduced recently and he accidentally missed 4 doses last week. Home Medications Home Medications Medication Instructions Recorded Confirmed Type aspirin [Aspir-81] 81 mg PO HS 09/17/18 10/30/18 History furosemide 40 mg PO QAM 09/17/18 10/30/18 History metoprolol succinate 50 mg PO QAM 09/17/18 10/30/18 History multivitamin [Multiple Vitamins] 1 tab PO HS 09/17/18 10/30/18 History rivaroxaban 20 mg PO QAM 09/17/18 10/30/18 History simvastatin 40 mg PO HS 09/17/18 10/30/18 History zolpidem 5 mg PO HS PRN 09/17/18 10/30/18 History amiodarone 200 mg PO BID #60 tab 09/20/18 10/30/18 Rx Allergies Allergy/AdvReac Type Severity Reaction Status Date / Time adhesive Allergy Intermediate RASH Verified 10/30/18 09:56 diltiazem [From Cardizem] Allergy Rash Verified 10/30/18 09:18 Past Med/Surg History Medical History AAA (abdominal aortic aneurysm) Systolic and diastolic CHF, acute on chronic Carotid bruit Morbid obesity with BMI of 40.0-44.9, adult suspected GALINA with obesity hypoventilation syndrome - refuses sleep study Hyperlipidemia Thyroid nodule Nonischemic cardiomyopathy EF 50% Paroxysmal atrial fibrillation 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 CAD (coronary artery disease) Hypertension (Chronic) Acute on chronic combined systolic and diastolic heart failure Atrial fibrillation Atrial flutter CAD (coronary artery disease) Surgical History History of appendectomy History of aortic valve replacement History of mitral valve prosthesis H/O aortic valve replacement (Resolved) H/O mitral valve replacement (Resolved) History of permanent cardiac pacemaker placement history of complete heart block prior to placement in January 2012 Family History Other Cancer Heart disease Hypertension Social History Preferred Language: Czech Beliefs That Will Affect Care: None Current Living Situation: Family Other Information That Helps Us Care for You: No Feels Safe at Home: Yes Safety Concerns: Feels Safe At This Time Smoking Status: Never smoker Hx Alcohol Use: No Hx Substance Use: No Review of Systems See HPI for pertinent positives & negatives. and A total of 10 systems reviewed and were otherwise negative Physical Exam Vital Signs Vital Signs - 24 hr 10/30/18 06:29 10/30/18 06:42 10/30/18 06:44 Temperature 36.4 C L Temperature Source Oral Sepsis Recent Fever Within 48 Hours No Sepsis Action Taken by Nursing No Action Required Pulse Rate 128 H 128 H 128 H Pulse Rate [Apical] Pulse Rate [Finger] Pulse Rate from SpO2 Sensor 128 H 128 H Respiratory Rate 20 24 17 Respiratory Effort / Characteristics Non-Labored Respiratory Depth Normal Respiratory Pattern Blood Pressure 109/76 106/88 Blood Pressure [Right Arm] Blood Pressure Mean 87 94 Blood Pressure Mean [Right Arm] Blood Pressure Position Sitting Blood Pressure Position [Right Arm] Pulse Oximetry 95 95 95 Oxygen Delivery Method Room Air 10/30/18 06:45 10/30/18 07:00 10/30/18 07:08 Temperature Temperature Source Sepsis Recent Fever Within 48 Hours Sepsis Action Taken by Nursing Pulse Rate 128 H 129 H Pulse Rate [Apical] Pulse Rate [Finger] Pulse Rate from SpO2 Sensor 128 H 129 H Respiratory Rate 15 26 H Respiratory Effort / Characteristics Respiratory Depth Respiratory Pattern Blood Pressure Blood Pressure [Right Arm] Blood Pressure Mean Blood Pressure Mean [Right Arm] Blood Pressure Position Blood Pressure Position [Right Arm] Pulse Oximetry 95 95 95 Oxygen Delivery Method Room Air 10/30/18 07:11 10/30/18 07:14 10/30/18 07:15 Temperature Temperature Source Sepsis Recent Fever Within 48 Hours Sepsis Action Taken by Nursing Pulse Rate 130 H 129 H 129 H Pulse Rate [Apical] Pulse Rate [Finger] Pulse Rate from SpO2 Sensor 131 H 129 H Respiratory Rate 30 H 13 Respiratory Effort / Characteristics Respiratory Depth Respiratory Pattern Blood Pressure 106/71 106/71 Blood Pressure [Right Arm] Blood Pressure Mean 82 Blood Pressure Mean [Right Arm] Blood Pressure Position Blood Pressure Position [Right Arm] Pulse Oximetry 95 96 Oxygen Delivery Method 10/30/18 07:30 10/30/18 07:31 10/30/18 07:45 Temperature Temperature Source Sepsis Recent Fever Within 48 Hours Sepsis Action Taken by Nursing Pulse Rate 128 H 128 H 128 H Pulse Rate [Apical] Pulse Rate [Finger] Pulse Rate from SpO2 Sensor 128 H 127 H 128 H Respiratory Rate 22 20 22 Respiratory Effort / Characteristics Respiratory Depth Respiratory Pattern Blood Pressure 124/79 Blood Pressure [Right Arm] Blood Pressure Mean 94 Blood Pressure Mean [Right Arm] Blood Pressure Position Blood Pressure Position [Right Arm] Pulse Oximetry 96 94 95 Oxygen Delivery Method 10/30/18 07:50 10/30/18 08:00 10/30/18 08:01 Temperature Temperature Source Sepsis Recent Fever Within 48 Hours Sepsis Action Taken by Nursing Pulse Rate 128 H 128 H 127 H Pulse Rate [Apical] Pulse Rate [Finger] Pulse Rate from SpO2 Sensor 128 H 127 H Respiratory Rate 28 H 16 Respiratory Effort / Characteristics Respiratory Depth Respiratory Pattern Blood Pressure 124/79 112/88 Blood Pressure [Right Arm] Blood Pressure Mean 96 Blood Pressure Mean [Right Arm] Blood Pressure Position Blood Pressure Position [Right Arm] Pulse Oximetry 95 95 Oxygen Delivery Method 10/30/18 08:15 10/30/18 08:30 10/30/18 08:31 Temperature Temperature Source Sepsis Recent Fever Within 48 Hours Sepsis Action Taken by Nursing Pulse Rate 128 H 108 H 95 H Pulse Rate [Apical] Pulse Rate [Finger] Pulse Rate from SpO2 Sensor 127 H 122 H 100 H Respiratory Rate 23 17 17 Respiratory Effort / Characteristics Respiratory Depth Respiratory Pattern Blood Pressure 101/75 Blood Pressure [Right Arm] Blood Pressure Mean 83 Blood Pressure Mean [Right Arm] Blood Pressure Position Blood Pressure Position [Right Arm] Pulse Oximetry 95 94 95 Oxygen Delivery Method 10/30/18 08:45 10/30/18 09:00 10/30/18 09:01 Temperature Temperature Source Sepsis Recent Fever Within 48 Hours Sepsis Action Taken by Nursing Pulse Rate 95 H 101 H 100 H Pulse Rate [Apical] Pulse Rate [Finger] Pulse Rate from SpO2 Sensor 101 H 109 H 104 H Respiratory Rate 21 19 23 Respiratory Effort / Characteristics Respiratory Depth Respiratory Pattern Blood Pressure 95/67 L 79/64 L Blood Pressure [Right Arm] Blood Pressure Mean 76 69 Blood Pressure Mean [Right Arm] Blood Pressure Position Blood Pressure Position [Right Arm] Pulse Oximetry 94 95 98 Oxygen Delivery Method 10/30/18 09:03 10/30/18 09:15 10/30/18 09:16 Temperature Temperature Source Sepsis Recent Fever Within 48 Hours Sepsis Action Taken by Nursing Pulse Rate 101 H 95 H 96 H Pulse Rate [Apical] Pulse Rate [Finger] Pulse Rate from SpO2 Sensor 119 H 102 H 99 H Respiratory Rate 24 17 19 Respiratory Effort / Characteristics Respiratory Depth Respiratory Pattern Blood Pressure 120/77 Blood Pressure [Right Arm] Blood Pressure Mean 91 55 Blood Pressure Mean [Right Arm] Blood Pressure Position Blood Pressure Position [Right Arm] Pulse Oximetry 96 95 96 Oxygen Delivery Method 10/30/18 09:18 10/30/18 09:30 10/30/18 09:32 Temperature Temperature Source Sepsis Recent Fever Within 48 Hours Sepsis Action Taken by Nursing Pulse Rate 96 H 95 H Pulse Rate [Apical] 95 H Pulse Rate [Finger] Pulse Rate from SpO2 Sensor 100 H 101 H Respiratory Rate 22 20 19 Respiratory Effort / Characteristics Respiratory Depth Respiratory Pattern Blood Pressure 92/60 L Blood Pressure [Right Arm] 120/77 Blood Pressure Mean 70 Blood Pressure Mean [Right Arm] 91 Blood Pressure Position Blood Pressure Position [Right Arm] Pulse Oximetry 96 95 96 Oxygen Delivery Method Room Air 10/30/18 09:45 10/30/18 09:47 10/30/18 10:19 Temperature Temperature Source Sepsis Recent Fever Within 48 Hours Sepsis Action Taken by Nursing Pulse Rate 97 H 91 H 103 H Pulse Rate [Apical] Pulse Rate [Finger] Pulse Rate from SpO2 Sensor 99 H 98 H Respiratory Rate 21 21 20 Respiratory Effort / Characteristics Respiratory Depth Respiratory Pattern Blood Pressure 107/90 94/65 L Blood Pressure [Right Arm] Blood Pressure Mean 95 Blood Pressure Mean [Right Arm] Blood Pressure Position Blood Pressure Position [Right Arm] Pulse Oximetry 95 95 95 Oxygen Delivery Method Room Air 10/30/18 11:25 10/30/18 11:26 10/30/18 14:26 Temperature 36.6 C 36.7 C Temperature Source Oral Oral Sepsis Recent Fever Within 48 Hours Sepsis Action Taken by Nursing Pulse Rate Pulse Rate [Apical] 124 H 75 Pulse Rate [Finger] Pulse Rate from SpO2 Sensor Respiratory Rate 18 17 Respiratory Effort / Characteristics Non-Labored Spontaneous Non-Labored Spontaneous Respiratory Depth Normal Normal Respiratory Pattern Regular Regular Blood Pressure Blood Pressure [Right Arm] 120/83 129/82 Blood Pressure Mean Blood Pressure Mean [Right Arm] 95 97 Blood Pressure Position Blood Pressure Position [Right Arm] Sitting Sitting Pulse Oximetry 93 93 Oxygen Delivery Method Room Air Room Air 10/30/18 15:07 10/30/18 15:28 10/30/18 15:30 Temperature 36.6 C 36.6 C 36.6 C Temperature Source Oral Sepsis Recent Fever Within 48 Hours Sepsis Action Taken by Nursing Pulse Rate Pulse Rate [Apical] 75 75 Pulse Rate [Finger] 71 71 71 Pulse Rate from SpO2 Sensor Respiratory Rate 18 18 18 Respiratory Effort / Characteristics Respiratory Depth Respiratory Pattern Blood Pressure Blood Pressure [Right Arm] 120/74 120/74 120/74 Blood Pressure Mean Blood Pressure Mean [Right Arm] 89 Blood Pressure Position Blood Pressure Position [Right Arm] Lying Pulse Oximetry 95 95 95 Oxygen Delivery Method Room Air Vital signs reviewed. General: Well-appearing elderly man, in no significant distress. Obese. HEENT: No scleral icterus, PERRLA, neck supple. Atraumatic. Cardiovascular: Tachycardic but regular rhythm, no extra sounds. Pulmonary: Clear to auscultation bilaterally, normal work of breathing. Abdomen: Soft, nontender, nondistended, positive bowel sounds. Musculoskeletal: Atraumatic, minimal peripheral edema. Neurologic: Patient awake alert and oriented x 3 Skin: Warm, dry, no rash. Course 0648: Past medical records reviewed. The patient was evaluated in room B3B, and a complete history and physical examination were performed. 0913: I reviewed the patient's case with Annalee Finnegan PA-C, [facility] hospitalist. She will evaluate the patient for further management. Consultations Consultation #1: Annalee Finnegan PA-C, [facility] hospitalist Time: 09:13 Administered Medications Discontinued Medications Diltiazem HCl (Cardizem) 20 mg IV NOW STA Stop: 10/30/18 08:24 Last Admin: 10/30/18 08:27 Dose: 20 mg Documented by: [id number] Cosigned by: [id number] Diphenhydramine HCl (Benadryl) Confirm Administered Dose 50 mg .ROUTE .STK-MED ONE Stop: 10/30/18 08:35 Last Admin: 10/30/18 08:35 Dose: 25 mg Documented by: [id number] Furosemide (Lasix) 40 mg PO NOW STA Stop: 10/30/18 09:51 Last Admin: 10/30/18 11:00 Dose: Not Given Documented by: [id number] Metoprolol Tartrate (Lopressor) 5 mg IV Q5M PRN PRN Reason: Tachycardia Stop: 11/29/18 06:55 Last Admin: 10/30/18 07:50 Dose: 5 mg Documented by: [id number] Admin: 10/30/18 07:14 Dose: 5 mg Documented by: [id number] Medical Decision Making Differential Diagnosis Differential diagnosis includes etiologies such as premature contractions, electrolyte abnormality, cardiac dysrhythmia, thyroid dysfunction, pulmonary embolism, infection, gastrointestinal, as well as others were entertained. Medical Records Attestation: I reviewed the patient's medical records. Home Medications Current Medication List: was personally reviewed by me Laboratory Data Attestation: I reviewed the patient's lab results. Result diagrams: 10/30/18 06:50 10/30/18 06:50 Lab Results 10/30/18 10/30/18 10/30/18 Range/Units 06:50 06:50 06:50 WBC 10.20 (4.8-10.8) K/uL RBC 4.85 (4.7-6.1) M/uL Hgb 15.0 (14.0-18.0) g/dL Hct 44.7 (42-52) % MCV 92.2 (80-100) fL MCH 30.9 (25-34) pg MCHC 33.6 (32-36) g/dL RDW Std Deviation 45.2 (36.4-46.3) fL RDW Coeff of Radha 13.5 (11.5-14.5) % Plt Count 123 L (130-400) K/uL MPV 10.8 H (7.4-10.4) fL Immature Gran % (Auto) 0.3 % Neut % (Auto) 63.9 % Lymph % (Auto) 26.7 % [place] % (Auto) 6.2 % Eos % (Auto) 2.5 % Baso % (Auto) 0.4 % Immature Gran # (Auto) 0.03 H (0.00-0.02) K/uL Neut # (Auto) 6.52 H (1.4-6.5) K/uL Lymph # (Auto) 2.72 (1.2-3.4) K/uL [place] # (Auto) 0.63 H (0.11-0.59) K/uL Eos # (Auto) 0.26 (0-0.5) K/uL Baso # (Auto) 0.04 (0-0.2) K/uL PT 15.1 H (9.0-12.0) Seconds INR 1.5 H (0.9-1.1) APTT 39.9 H (21.0-31.0) Seconds PTT Ratio 1.5 Sodium 138 (136-145) mmol/L Potassium 4.2 (3.5-5.1) mmol/L Chloride 104 (98-107) mmol/L Carbon Dioxide 27 (21-32) mmol/L Anion Gap 6.0 (3-11) BUN 35 H (7-18) mg/dl Creatinine 1.42 H (0.6-1.4) mg/dl Est Cr Clr Drug Dosing 50.5 ml/min Est GFR ( Amer) 52.9 Est GFR (Non-Af Amer) 45.7 BUN/Creatinine Ratio 24.9 H (10-20) Glucose 140 H (70-99) mg/dl Calcium 9.2 (8.5-10.1) mg/dl Magnesium 2.2 (1.8-2.4) mg/dl Total Bilirubin 0.6 (0.2-1) mg/dl AST 26 (15-37) U/L ALT 29 (12-78) U/L Alkaline Phosphatase 107 (45-117) U/L Troponin I < 0.015 (0-0.045) ng/ml Total Protein 7.2 (6.4-8.2) gm/dl Albumin 3.9 (3.4-5.0) gm/dl Globulin 3.3 (2.5-4.0) gm/dl Albumin/Globulin Ratio 1.2 (0.9-2) TSH 3.330 (0.300-4.500) uIu/ml Imaging Data Radiologist's Impression: Radiology results as stated below per my review and the radiologist's interpretation: XR chest 1V portable CLINICAL HISTORY: afib, SOB COMPARISON STUDY: Chest radiograph September 17, 2018. FINDINGS: There are median sternotomy wires and a right-sided dual-lead pacer. Cardiomegaly is unchanged. Mediastinal widening is unchanged. There is no pneumothorax. There is a possible small right pleural effusion. Bibasilar opacities have increased. IMPRESSION: 1. Increase in bibasilar opacities. Pneumonia is favored. Atelectasis or pulmona ry edema could appear similar. Radiographic follow up is recommended. 2. Stable cardiomegaly. 3. Small right pleural effusion. Electronically signed by: Jareth Wilkins M.D. 10/30/2018 7:51 AM ECG Data Attestation: I personally reviewed and interpreted this ECG as follows: Indication: tachycardia Rate (beats per minute): 127 Rhythm: atrial flutter (likely) Findings: + other (Repolarization abnormality in inferior and lateral leads); no ST depression and no ST elevation Comparison ECG Date: from (Repeat ECG) Change: the following changes noted (Repeat ECG shows V-paced rhythm. rate of 100. QTC 593.) Blood Pressure Blood Pressure Findings: Normal blood pressure Blood Pressure Disposition: did not require urgent referral MDM Narrative This patient was evaluated and appeared to be in no significant distress. The patient is found to be tachycardic with a regular rhythm. It is thought that this likely represents an atrial flutter although it is not clear on the EKG. Patient was given IV metoprolol x2 doses without much improvement. He was then given 20 mg of IV Cardizem with good rate control and evidence of a demand ventricular pacer. The patient developed urticaria of the right arm where the Cardizem was injected. He did complain of some "itchiness." Patient was then given 25 mg of IV Benadryl. He is currently anticoagulated with rivaroxaban. Given the multiple doses of rate controlling medications and the subsequent allergic reaction with the rapid atrial flutter, the patient will be evaluated by the hospitalist service for further management. Patient is aware of this plan and agrees. Impression & Plan Atrial flutter with rapid ventricular response Critical Care Time I have personally spent greater than 30 minutes of critical care time in the direct management of this patient. This includes bedside care, interpretation of diagnostic studies, and testing, discussion with consultants, patient, and family members, and other required patient management activities. This 30 minutes is in excess of all separately billable procedures. Critical Care Time: Yes Total Critical Care Time: 30 Discharge Plan Visit Data *Final* Discharge Date/Time: 10/30/18 10:19 Chief Complaint: Shortness of Breath/Dyspnea Stated Complaint: SHORT OF BREATH,PULSE RATE UP ED Provider: Nidhi Doan Discharge Problem: Atrial flutter with rapid ventricular response Patient Disposition: Admitted As Inpatient Discharge Instructions Interventions: ED Discharge Assessment Last Done: 10/30/18 10:19 The scribe's documentation has been prepared under my direction and personally reviewed by me in its entirety. I confirm that the note above accurately reflects all work, treatment, procedures, and medical decision making performed by me.
[2018-10-30] MEDS ORDERED: CEROVITE ADV FORMULA TAB PO SCH (21:00)
[2018-10-30] MEDS ORDERED: SIMVASTATIN 40 MG TAB PO SCH (21:00)
[2018-10-30] MEDS ORDERED: ASPIRIN 81 MG ECTAB PO SCH (21:00)
[2018-10-31] MEDS ORDERED: METOPROLOL SUCC 50MG EXT REL TAB PO SCH (09:00)
[2018-10-31] MEDS ORDERED: RIVAROXABAN 20 MG TAB PO SCH (09:00)
--- NOTE | 2018-10-31 14:13 | Discharge Summary ---
Date of Service November 04, 2018 Admission HPI Per Admitting Provider This is an 82yo M with PMHx of non-obstructive CAD, atrial fibrillation on anticoagulation, bioprosthetic MVR and AVR and dual chamber pacer in place. He follows with Dr. Newton. Pt was doing well until this morning when he felt uneasy. He notes has missed amiodarone for 4 days, Sunday through yesterday. He denies any chest pain, heaviness, palpitations. He did experience some shortness of breath which was mild in association with exertion this morning, and had one episode of palpitations. He does not feel as bad as he did last time he was admitted. His daughters are present at bedside and support the history. He took all his medications this morning besides for lasix PO. Discharge Data Consultations 10/30/18 09:18 ED Decision to Admit Stat 10/30/18 09:48 Consult Cardiology Routine Consult Case Management - Discharge Planning Routine Procedures Performed Operation Date: 10/30/18 13:30 Actual Procedures p Cardioversion - Seb Nuno MD
--- NOTE | 2018-11-03 23:36 | Discharge Summary ---
Date of Service Oct 30, 2018 Admission HPI Per Admitting Provider This is an 82yo M with PMHx of non-obstructive CAD, atrial fibrillation on anticoagulation, bioprosthetic MVR and AVR and dual chamber pacer in place. He follows with Dr. Newton. Pt was doing well until this morning when he felt uneasy. He notes has missed amiodarone for 4 days, Sunday through yesterday. He denies any chest pain, heaviness, palpitations. He did experience some shortness of breath which was mild in association with exertion this morning, and had one episode of palpitations. He does not feel as bad as he did last time he was admitted. His daughters are present at bedside and support the history. He took all his medications this morning besides for lasix PO. Principal Diagnosis non cardiac chest pain. Discharge Exam General: awake, alert, no apparent distress, + obese Head: Normocephalic, atraumatic ENT: PERRL, EOMI, no pharyngeal exudate, mucous membranes moist Chest: Clear to auscultation, on room air, no adventitious breath sounds Cardiac: Regular rate and rhythm, +SUSHIL, no JVD, normal peripheral pulses, good capillary refill Abdominal: NABS x 4 quadrants, soft, nontender to palpation, no rebound, guarding or tenderness Extremities: Normal inspection,1+ pitting peripheral edema bilaterally, no erythema, calfs nontender to palpation Psych: Normal mood and affect Neuro: AAO x 3, strength intact bilaterally and related 5/5, no motor deficits, speech is clear, no peripheral sensory deficits Discharge Data Allergies Allergy/AdvReac Type Severity Reaction Status Date / Time adhesive Allergy Intermediate RASH Verified 10/30/18 09:56 diltiazem [From Cardizem] Allergy Rash Verified 10/30/18 09:18 Consultations 10/30/18 09:18 ED Decision to Admit Stat 10/30/18 09:48 Consult Cardiology Routine Consult Case Management - Discharge Planning Routine Procedures Performed Operation Date: 10/30/18 13:30 Actual Procedures p Cardioversion - Seb Nuno MD Hospital Course (1) Atrial flutter: - Admit to tele - In the ER pt received metoprolol IV x 2 doses without effect. He had been started on a cardizem gtt in the ER which converted him to a ventricular paced rhythm however he did develop a red rash around the IV site. He has been administered benadryl for this. - Of note the pt was supposed to be taking amiodarone, however missed several doses and then was restarted on half his normal home dose which likely led to this episode of aflutter. - Electrolytes and TSH WNL. - Consult cards: Dr. Newton - Pt was previously admitted in Sep 2018 and underwent DC cardioversion on 09/20 which was successful - ECHO with CHF as below - Continue Toprol XL 50mg once daily, amiodarone 200 mg daily. Cards recs as above. - Continue Xarelto for anticoagulation. Hospital course: Patient was cardioverted. Patient will be placed on amiodarone BID for 1 week and then switched to daily. It appears patient was not compliant (2) Dyspnea: - Likely secondary to underlying arrhythmia, mild degree of CHF in setting of rapid HR. now resolved - Resume home Lasix 40mg po daily (3) CAD (coronary artery disease): - Cardiac catheterization October 2012 with a 50-60% lesion within the OM of the circumflex, 40% proximal LAD lesion. - Nonobstructing CAD. No CP, no evidence of myocardial ischemia by labs or EKG - Continue ASA, metoprolol and Simvastatin (4) Hypertension: - Blood pressure mildly low - will hold dose of lasix today and restart tomorrow on 10/31 pending good BPs. - Continue Toprol XL 50 mg once daily (5) History of aortic valve replacement: - S/p aortic valve replacement with a 23 mm Brad-Aguirre bioprosthetic aortic valve at [facility], February 2010. (6) History of mitral valve prosthesis: - Status post mitral valve replacement of 33 mm bioprosthetic mitral valve, January 2012 secondary to severe mitral regurgitation. Status post repair of a large paravalvular mitral regurgitant leak with 3 plugs at [facility] February 2013. (7) Cardiac pacemaker in situ: - Complete heart block, status post [employer] Sensia dual chamber pacemaker January 2012. (8) Paroxysmal atrial fibrillation: -stable and rate controlled on metoprolol and Xarelto (9) Carotid bruit: (10) Nonischemic cardiomyopathy: - History of a nonischemic cardiomyopathy with an echo this admission suggesting an EF in the range of 50% with a septal abnormality. (11) Hyperlipidemia: - Cont statin therapy (12) Morbid obesity with BMI of 40.0-44.9, adult: - Continue diet and excercise regimen as tolerated. 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 - Likely exacerbated by rapid A-flutter - continue daily home po lasix - daily weights, strict I/Os - HH/low-sodium diet (14) DVT prophylaxis: - xarelto (15) AAA (abdominal aortic aneurysm): - 4.9 cm, followed by cardiology as above. Total Time Total Time Spent Total Time Spent (In Minutes): 32 Total Time Includes: Examination of the Patient, Discharge Planning and Medication Reconciliation Discharge Plan Discharge Items Patient Disposition: Home - Self-Care Reason For Visit: SHORTNESS OF BREATH, AFLUTTER Discharge Diagnosis: Atrial Flutter Discharge Goals: Decrease discomfort Activity: Resume your previous activity Non-emergency contact: Primary Care Provider Call non-emergency contact if: you have any medication questions Follow-up/Referrals: Efra Hobson III, MD [Primary Care Provider] - Diet: Regular Addtl Provider Instructions: Will discharge you on your regular medicine after your cardioversion. Only difference 1 amiodarone twice a day for one week. Then return to once daily Prescriptions: Continued aspirin [Aspir-81] 81 mg Tablet,Delayed Release (Dr/Ec) 81 mg PO HS RF: 0 multivitamin [Multiple Vitamins] Tablet 1 tab PO HS RF: 0 metoprolol succinate 50 mg tablet extended release 24 hr 50 mg PO QAM RF: 0 simvastatin 40 mg tablet 40 mg PO HS RF: 0 rivaroxaban 20 mg tablet 20 mg PO QAM RF: 0 furosemide 40 mg tablet 40 mg PO QAM RF: 0 zolpidem 5 mg Tablet 5 mg PO HS PRN (Reason: Sleep) RF: 0 amiodarone 200 mg Tablet 200 mg PO BID Qty: 60 RF: 0 Stand-Alone Forms: [employer] [facility]Other Patient Handouts: Amiodarone Hydrochloride Oral tablet, Cardioversion Dc Discharge Orders: Discharge Order (Routine); Ordered 10/30/18 Ordered By: Ke Ayala Admission Data Admit Date/Time: 10/30/18 11:18 Attending Provider: Ke Ayala Admit Provider: Ke Ayala Primary Care Provider: Efra Hobson III Other Providers: Jeevan Newton ; Guanaco Shetty Service: Telemetry Other Interventions: Discharge Summary Assessment (RN) Last Done: 10/30/18 15:30 DC Date/Time DO NOT enter until pt leaves facility: 10/30/18 17:00
== END 2018-10-30 17:00 | disposition home or self-care (01) | DRG 308 ==
LOC: ED 06:25 → 2S 10:19

== ENCOUNTER 2020-11-08 18:53 | Inpatient (IN) ==
[2020-11-08] MEDS ORDERED: SODIUM CHLORIDE 0.9% 1000ML 1,000 ML IV ONE (19:08)
[2020-11-08] MEDS ORDERED: ONDANSETRON INJ 2 MG/ML 2 ML VIAL IV STA (19:23)
--- NOTE | 2020-11-08 19:23 | Emergency Department Note ---
Impression & Plan JANET (acute kidney injury), Syncope, Hypotension ED Provider Note NAME: JESUS MORRELL AGE: 85 SEX: M : 1935 ARRIVES VIA: Ambulance INFORMANT: Patient, daughter, EMS ED PROVIDER(S): Vargas Israel MD CHIEF COMPLAINT: syncope, hypotension, incontinent HPI: This is an 85-year-old male who presents emergency department complaining of feeling dizzy all day. The patient reports he went to the bathroom and passed out. He became incontinent of stool. He was found by his daughter and EMS was summoned. The patient upon arrival reports that his Entresto was recently increased and he believes this is why he is dizzy. He denies any pain however does have a large bruise to his left shoulder. He reports moving sitting up or standing up causes the dizziness to get worse however laying down causes the dizziness to get better. He has not taken anything for the dizziness prior to arrival ROS: See above HPI for pertinent positives & negatives. A total of 10 systems reviewed and were otherwise negative. PAST MEDICAL HISTORY: See Below PAST SURGICAL HISTORY: See Below FAMILY HISTORY: See Below SOCIAL HISTORY: See Below HOME MEDICATIONS: See Below ALLERGIES: See Below VITALS: See Below PHYSICAL EXAMINATION: VITAL SIGNS - Vital signs and nursing notes were reviewed. GENERAL - 85-year-old male appearing stated age who is in no acute distress. Communicates well with provider and answers questions appropriately, incontinent of stool SKIN - Without rashes. HEAD - NC/AT. EYES - PERRL with EOMI bilaterally. Sclera anicteric. Palpebral conjunctiva pink and moist with no injection noted. EARS - No deformities of external structures noted on gross examination bilat erally. NOSE - Midline and without cyanosis. No epistaxis or purulent drainage noted. Septum midline without deviation or septal hematoma noted. MOUTH/OROPHARYNX - Without perioral cyanosis. Buccal mucosa pink and moist and without leukoplakia. Tongue midline with equal elevation of palate bilaterally. No tonsillar hypertrophy, erythema, or exudates noted. dentition noted. NECK - Neck with FROM. Supple to palpation. lymphadenopathy noted. No nuchal rigidity. LUNGS - Chest wall symmetric without accessory muscle use, intercostals retractions, or central cyanosis. Normal vesicular breath sounds CTA B/L. No wheezes, rales, or rhonchi appreciated. CARDIAC - RRR with S1/S2. No murmur, rubs, or gallops appreciated. ABDOMEN - Abdominal contour without pulsations or visible masses. BS n ormoactive all four quadrants. No tenderness, palpable masses, hepatosplenomegaly, or ascites noted. EXTREMITIES - large amount of bruising to left shoulder, neurovascularly intact to left elbow, left wrist. NEUROLOGIC - Cranial nerves II through XII grossly intact. Sensory intact to light touch throughout. Patellar reflexes +2/4. PSYCH - A&Ox3 and cooperates fully with examiner. Pt is very pleasant and interacts well with examiner. MEDICAL DECISION MAKING: Patient was seen and evaluated as above in room . Review was performed of nursing notes and vital signs. I did review pertinent previous visits and patient history. After obtaining a thorough history and physical examination the above work up was performed. This is an 85-year-old male who presents emergency department incontinent of stools after a hypotensive syncopal episode at home. The patient reports that his blood pressure medication was recently increased. His kidney function also has appeared to have worsened. He does appear to have congestive heart failure on his chest x-ray therefore he was very lightly hydrated with a liter of fluid here in the emergency department. Due to the patient's hypotension and co ngestive heart failure I did discuss the case with the hospitalist service who did agree to admit the patient. Patient is in agreement with the treatment plan. An order was placed for continuous cardiac monitoring. The monitor shows a rate of 76 with paced rhythm. The patient was evaluated during a period of high volume and high acuity while the hospital was at overcapacity during the global COVID-19 pandemic, and that diagnosis was suspected/considered upon their initial presentation. Their evaluation, treatment and testing was consistent with current guidelines for patients who present with complaints or symptoms that may be related to COVID- 19. Triage Nursing notes reviewed. Prior medical records reviewed Vital Signs: reviewed and remarkable for no significant abnormalities Differential diagnosis: Infection, dehydration, metabolic abnormality, hypo/hyperglycemia, electrolyte disturbance, anemia, hypoxia, cardiac sources, intracerebral event, toxicologic, neurologic, as well as other pathologies. ER treatment provided: See below Diagnostics interpreted by me: ECG: EKG shows an AV dual paced rhythm biventricular pacemaker QTC is 544 ventricular rate is 75 Compared to 10/30/2018 it is unchanged from previous Laboratory studies: As stated above and show below. Imaging studies: See below Consultation(s): hospitalist service I have personally spent greater than 30 minutes of critical care time in the direct management of this patient. This includes bedside care, interpretation of diagnostic studies, and testing, discussion with consultants, patient, and family members, and other required patient management activities. This 30 minutes is in excess of all separately billable procedures. Past Med/Surg History Medical History (Updated 11/09/20 @ 16:12 by Vargas Israel MD) AAA (abdominal aortic aneurysm) Acute on chronic combined systolic and diastolic heart failure Atrial fibrillation Atrial flutter CAD (coronary artery disease) 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 Carotid bruit Hyperlipidemia Hypertension Morbid obesity with BMI of 40.0-44.9, adult suspected GALINA with obesity hypoventilation syndrome - refuses sleep study Nonischemic cardiomyopathy EF 50-55% per 09/18/18 echo Paroxysmal atrial fibrillation Systolic and diastolic CHF, acute on chronic Thyroid nodule Surgical History (Updated 09/09/20 @ 10:59 by Randy Escoto) H/O aortic valve replacement H/O mitral valve replacement History of appendectomy History of mitral valve prosthesis History of permanent cardiac pacemaker placement history of complete heart block prior to placement in January 2012 Family History Other Cancer Heart disease Hypertension Social History Smoking Status: Never smoker Second Hand Exposure: No; Do You Dip or Chew Tobacco: No; Tobacco Cessation Education Requested by Patient: No Hx Alcohol Use: No Hx Substance Use: No Preferred Language: Kinyarwanda Communication Ability: Effective Outer Diameter Grinder Required: No Beliefs That Will Affect Care: None Current Living Situation: Family Current Living Situation Comment: WITH KIDS/GRANDSON IN [place] Other Information That Helps Us Care for You: No Feels Safe at Home: Yes Safety Concerns: Feels Safe At This Time Assistive Devices: Glasses, Oxygen - Continuous and Walker Allergies Allergies Allergy/AdvReac Type Severity Reaction Status Date / Time adhesive Allergy Intermediate RASH Verified 11/08/20 21:58 diltiazem [From Cardizem] Allergy Rash Verified 11/08/20 21:59 Home Meds Home Medications Medication Instructions Recorded Confirmed multivitamin [Multiple Vitamins] 1 tab PO QPM 09/17/18 11/08/20 zolpidem 5 mg PO HS PRN 09/17/18 11/08/20 rivaroxaban [Xarelto] 15 mg PO QPM 03/25/19 11/08/20 amiodarone 200 mg PO DAILY 11/08/20 11/08/20 aspirin [Aspir-Low] 81 mg PO QPM 11/08/20 11/08/20 dorzolamide-timolol 1 drp OPL BID 11/08/20 11/08/20 furosemide 10 - 40 mg PO DAILY PRN 11/08/20 11/08/20 sacubitril-valsartan [Entresto] 1 tab PO BID 11/08/20 11/08/20 Previous Rx's Medication Instructions Recorded metoprolol succinate 50 mg 50 mg PO DAILY #90 tab 05/21/20 tablet,extended release 24 hr simvastatin 40 mg tablet 40 mg PO HS #90 tab 06/21/20 Results & Data (ED) Vital Signs Vital Signs - 24 hr 11/08/20 19:05 11/08/20 19:09 11/08/20 19:10 Temperature 36.8 C Temperature Source Oral Pulse Rate - Lying Pulse Rate - Sitting Pulse Rate - Standing Pulse Rate 75 Pulse Rate from SpO2 Sensor Respiratory Rate 18 Respiratory Depth Normal Blood Pressure - Lying Blood Pressure - Sitting Blood Pressure- Standing Blood Pressure 105/58 L Blood Pressure Mean 73 Pulse Oximetry 92 95 96 Oxygen Delivery Method Room Air Room Air Room Air Oxygen Flow Rate Sepsis Recent Fever Within 48 Hours No Sepsis New/Unexplained Change in Mental Status No Sepsis Action Taken by Nursing No Action Required Oxygen Flow Rate - Titration 11/08/20 19:15 11/08/20 19:18 11/08/20 19:20 Temperature Temperature Source Pulse Rate - Lying Pulse Rate - Sitting Pulse Rate - Standing Pulse Rate 75 75 76 Pulse Rate from SpO2 Sensor 75 75 76 Respiratory Rate 20 Respiratory Depth Blood Pressure - Lying Blood Pressure - Sitting Blood Pressure- Standing Blood Pressure 106/57 L 106/56 L Blood Pressure Mean 73 72 Pulse Oximetry 94 93 95 Oxygen Delivery Method Oxygen Flow Rate Sepsis Recent Fever Within 48 Hours Sepsis New/Unexplained Change in Mental Status Sepsis Action Taken by Nursing Oxygen Flow Rate - Titration 11/08/20 19:22 11/08/20 19:30 11/08/20 19:43 Temperature Temperature Source Pulse Rate - Lying 75 Pulse Rate - Sitting 80 Pulse Rate - Standing 79 Pulse Rate 75 78 Pulse Rate from SpO2 Sensor 75 77 Respiratory Rate 23 20 Respiratory Depth Blood Pressure - Lying 106/57 L Blood Pressure - Sitting 106/56 L Blood Pressure- Standing 101/60 Blood Pressure 101/60 112/91 Blood Pressure Mean 73 98 Pulse Oximetry 94 90 88 L Oxygen Delivery Method Room Air Oxygen Flow Rate Sepsis Recent Fever Within 48 Hours Sepsis New/Unexplained Change in Mental Status Sepsis Action Taken by Nursing Oxygen Flow Rate - Titration 2 11/08/20 19:45 11/08/20 19:46 11/08/20 19:47 Temperature Temperature Source Pulse Rate - Lying Pulse Rate - Sitting Pulse Rate - Standing Pulse Rate 77 76 76 Pulse Rate from SpO2 Sensor 77 76 75 Respiratory Rate 20 28 H 27 H Respiratory Depth Blood Pressure - Lying Blood Pressure - Sitting Blood Pressure- Standing Blood Pressure 102/73 Blood Pressure Mean 82 Pulse Oximetry 87 L 95 94 Oxygen Delivery Method Oxygen Flow Rate 2 Sepsis Recent Fever Within 48 Hours Sepsis New/Unexplained Change in Mental Status Sepsis Action Taken by Nursing Oxygen Flow Rate - Titration 11/08/20 20:00 11/08/20 20:15 11/08/20 20:30 Temperature Temperature Source Pulse Rate - Lying Pulse Rate - Sitting Pulse Rate - Standing Pulse Rate 76 75 Pulse Rate from SpO2 Sensor 75 Respiratory Rate 26 H 22 Respiratory Depth Blood Pressure - Lying Blood Pressure - Sitting Blood Pressure- Standing Blood Pressure 111/67 108/69 Blood Pressure Mean 81 82 Pulse Oximetry 100 Oxygen Delivery Method Oxygen Flow Rate Sepsis Recent Fever Within 48 Hours Sepsis New/Unexplained Change in Mental Status Sepsis Action Taken by Nursing Oxygen Flow Rate - Titration 11/08/20 20:31 11/08/20 20:45 11/08/20 21:00 Temperature Temperature Source Pulse Rate - Lying Pulse Rate - Sitting Pulse Rate - Standing Pulse Rate 75 75 76 Pulse Rate from SpO2 Sensor 75 75 76 Respiratory Rate 29 H 24 26 H Respiratory Depth Blood Pressure - Lying Blood Pressure - Sitting Blood Pressure- Standing Blood Pressure 93/48 L 94/49 L Blood Pressure Mean 63 64 Pulse Oximetry 99 97 97 Oxygen Delivery Method Oxygen Flow Rate Sepsis Recent Fever Within 48 Hours Sepsis New/Unexplained Change in Mental Status Sepsis Action Taken by Nursing Oxygen Flow Rate - Titration 11/08/20 21:01 11/08/20 21:16 Temperature Temperature Source Pulse Rate - Lying Pulse Rate - Sitting Pulse Rate - Standing Pulse Rate 75 75 Pulse Rate from SpO2 Sensor 75 74 Respiratory Rate 24 29 H Respiratory Depth Blood Pressure - Lying Blood Pressure - Sitting Blood Pressure- Standing Blood Pressure 83/50 L 92/60 L Blood Pressure Mean 61 70 Pulse Oximetry 99 98 Oxygen Delivery Method Oxygen Flow Rate Sepsis Recent Fever Within 48 Hours Sepsis New/Unexplained Change in Mental Status Sepsis Action Taken by Nursing Oxygen Flow Rate - Titration Home Medications Current Medication List: was personally reviewed by me Laboratory Data Attestation: I reviewed the patient's lab results. Result diagrams: 11/09/20 15:14 11/09/20 07:01 Lab Results 11/08/20 11/08/20 11/08/20 Range/Units 19:02 19:02 20:20 WBC 13.68 H (4.8-10.8) K/uL RBC 4.06 L (4.7-6.1) M/uL Hgb 12.1 L (14.0-18.0) g/dL Hct 36.6 L (42-52) % MCV 90.1 (80-100) fL MCH 29.8 (25-34) pg MCHC 33.1 (32-36) g/dL RDW Std Deviation 51.2 H (36.4-46.3) fL RDW Coeff of Radha 15.5 H (11.5-14.5) % Plt Count 100 L (130-400) K/uL MPV 11.4 H (7.4-10.4) fL Immature Gran % (Auto) 0.2 % Neut % (Auto) 88.0 % Lymph % (Auto) 5.0 % [place] % (Auto) 6.7 % Eos % (Auto) 0.0 % Baso % (Auto) 0.1 % Neut # (Auto) 12.05 H (1.4-6.5) K/uL Lymph # (Auto) 0.68 L (1.2-3.4) K/uL [place] # (Auto) 0.91 H (0.11-0.59) K/uL Eos # (Auto) 0.00 (0-0.5) K/uL Baso # (Auto) 0.01 (0-0.2) K/uL Immature Gran # (Auto) 0.03 H (0.00-0.02) K/uL Sodium 140 (136-145) mmol/L Potassium 4.2 (3.5-5.1) mmol/L Chloride 107 (98-107) mmol/L Carbon Dioxide 25 (21-32) mmol/L Anion Gap 8.0 (3-11) BUN 35 H (7-18) mg/dl Creatinine 2.14 H (0.6-1.4) mg/dl Est Cr Clr Drug Dosing 32.8 ml/min Est GFR ( Amer) 31.8 Est GFR (Non-Af Amer) 27.4 BUN/Creatinine Ratio 16.4 (10-20) Glucose 99 (70-99) mg/dl Calcium 9.4 (8.5-10.1) mg/dl Total Bilirubin 1.1 H (0.2-1) mg/dl AST 19 (15-37) U/L ALT 23 (12-78) U/L Alkaline Phosphatase 117 (45-117) U/L Total Creatine Kinase 39 (39-308) U/L CK-MB (CK-2) < 1.0 (0.5-3.6) ng/ml CK/CKMB % Calc TNP Troponin I < 0.015 (0-0.045) ng/ml Total Protein 6.9 (6.4-8.2) gm/dl Albumin 3.9 (3.4-5.0) gm/dl Globulin 3.0 (2.5-4.0) gm/dl Albumin/Globulin Ratio 1.3 (0.9-2) TSH 1.330 (0.300-4.500) uIu/ml COVID-19 Eval [facility] SARS-CoV-2, RNA, NAAT (NEGATIVE) 11/08/20 Range/Units 20:20 WBC (4.8-10.8) K/uL RBC (4.7-6.1) M/uL Hgb (14.0-18.0) g/dL Hct (42-52) % MCV (80-100) fL MCH (25-34) pg MCHC (32-36) g/dL RDW Std Deviation (36.4-46.3) fL RDW Coeff of Radha (11.5-14.5) % Plt Count (130-400) K/uL MPV (7.4-10.4) fL Immature Gran % (Auto) % Neut % (Auto) % Lymph % (Auto) % [place] % (Auto) % Eos % (Auto) % Baso % (Auto) % Neut # (Auto) (1.4-6.5) K/uL Lymph # (Auto) (1.2-3.4) K/uL [place] # (Auto) (0.11-0.59) K/uL Eos # (Auto) (0-0.5) K/uL Baso # (Auto) (0-0.2) K/uL Immature Gran # (Auto) (0.00-0.02) K/uL Sodium (136-145) mmol/L Potassium (3.5-5.1) mmol/L Chloride (98-107) mmol/L Carbon Dioxide (21-32) mmol/L Anion Gap (3-11) BUN (7-18) mg/dl Creatinine (0.6-1.4) mg/dl Est Cr Clr Drug Dosing ml/min Est GFR ( Amer) Est GFR (Non-Af Amer) BUN/Creatinine Ratio (10-20) Glucose (70-99) mg/dl Calcium (8.5-10.1) mg/dl Total Bilirubin (0.2-1) mg/dl AST (15-37) U/L ALT (12-78) U/L Alkaline Phosphatase (45-117) U/L Total Creatine Kinase (39-308) U/L CK-MB (CK-2) (0.5-3.6) ng/ml CK/CKMB % Calc Troponin I (0-0.045) ng/ml Total Protein (6.4-8.2) gm/dl Albumin (3.4-5.0) gm/dl Globulin (2.5-4.0) gm/dl Albumin/Globulin Ratio (0.9-2) TSH (0.300-4.500) uIu/ml COVID-19 Eval Order SARS-CoV-2, RNA, NAAT NEGATIVE (NEGATIVE) Administered Medications Acetaminophen (Acetaminophen 325 Mg Tab) 650 mg PO Q4H PRN PRN Reason: Pain or Fever Stop: 12/08/20 21:16 Last Admin: 11/09/20 13:25 Dose: 650 mg Documented by: [id number] Admin: 11/09/20 03:44 Dose: 650 mg Documented by: [id number] Amiodarone HCl (Amiodarone 200 Mg Tab) 200 mg PO BID SANTA Stop: 12/09/20 08:59 Last Admin: 11/09/20 08:35 Dose: 200 mg Documented by: [id number] Sodium Chloride (Nss 1000ml) 1,000 mls @ 125 mls/hr IV .Q8H SANTA Stop: 11/10/20 01:14 Last Admin: 11/09/20 10:01 Dose: 125 mls/hr Documented by: [id number] Ceftriaxone Sodium 2,000 mg/ (Dextrose) 70 mls @ 140 mls/hr IV Q24H SANTA Stop: 11/16/20 09:29 Last Infusion: 11/09/20 13:25 Dose: 0 mls/hr Documented by: [id number] Admin: 11/09/20 09:59 Dose: 140 mls/hr Documented by: [id number] Metoprolol Succinate (Metoprolol Succ 50mg Ext Rel Tab) 50 mg PO DAILY SANTA Stop: 12/09/20 08:59 Last Admin: 11/09/20 08:34 Dose: Not Given Documented by: [id number] Rivaroxaban (Rivaroxaban 15 Mg Tab) 15 mg PO QAM SANTA Stop: 12/09/20 08:59 Last Admin: 11/09/20 08:35 Dose: 15 mg Documented by: [id number] Discontinued Medications Azithromycin (Azithromycin 250 Mg Tab) 500 mg PO NOW STA Stop: 11/09/20 09:29 Last Admin: 11/09/20 09:59 Dose: 500 mg Documented by: [id number] Sodium Chloride (Nss 1000ml) 1,000 mls @ 999 mls/hr IV .Q1H1M ONE Stop: 11/08/20 20:08 Last Infusion: 11/08/20 20:30 Dose: 0 mls/hr Documented by: [id number] Admin: 11/08/20 19:15 Dose: 999 mls/hr Documented by: [id number] Albumin Human (Albumin 25%) 12.5 gm in 50 mls @ 50 mls/hr IV ONE ONE Stop: 11/08/20 21:23 Last Infusion: 11/08/20 21:34 Dose: 0 mls/hr Documented by: [id number] Admin: 11/08/20 20:41 Dose: 50 mls/hr Documented by: [id number] Ondansetron HCl (Ondansetron Inj 2 Mg/Ml 2 Ml Vial) 4 mg IV NOW STA Stop: 11/08/20 19:24 Last Admin: 11/08/20 19:28 Dose: 4 mg Documented by: [id number] Imaging Data Attestation: I personally reviewed and interpreted this imaging study as follows: Radiologist's Impression: [facility], [place] [phone] CT Scan Report Patient: JESUS MORRELL Admit Date: 11/08/20 MR#: [id number] Address[address]: [address] Acct ID:[id number] Address2: Date: 1935 [facility] Zip: [place] [address] Age: 85 Location: ED Sex: M Room/Bed: Att Phy: Diagnosis: DIZZY, FALL, HYPOTENSION Evelyn Phy: Efra Hobson III, MD Service Date: 11/08/20 Fam Phy: Interpreting Phy: Hill Hawkins MD Admit Phy: Ordering Phy: Vargas Israel MD cc: ~ CT SCAN OF THE ABDOMEN AND PELVIS WITHOUT IV CONTRAST CLINICAL HISTORY: Acute renal insufficiency. Hypertension. Vomiting. Nausea. Dizziness. COMPARISON STUDY: No priors. TECHNIQUE: CT scan of the abdomen and pelvis is performed from the lung bases to the proximal femora. Images are reviewed in the axial, sagittal, and coronal planes. IV contrast was not administered for this examination. A dose lowering technique was utilized adhering to the principles of ALARA. CT DOSE: 1278.90 mGy.cm FINDINGS: Lung bases: The patient is status post midline sternotomy and cardiac valve surgery. The heart is enlarged and without pericardial effusion. Pacemaker leads are noted. The coronary arteries are densely calcified. There are mild patchy a irspace opacities in the right lower lobe. Scarring/atelectasis is seen at both lung bases. No pleural effusion is identified. A small hiatal hernia is noted. Liver: The unenhanced liver is normal in size, contour, and attenuation. There is no intrahepatic biliary ductal dilatation. There are scattered calcified hepatic granulomas. Gallbladder: Unremarkable. Spleen: Normal in size and attenuation. There are numerous calcified splenic granulomas. Pancreas: The unenhanced pancreas is moderately atrophic and grossly unremarkable. Adrenal glands: Unremarkable. Kidneys: The unenhanced kidneys are atrophic and without hydronephrosis. There are no renal calculi identified. A 5.2 cm cyst is noted in the left kidney. Abdominal vasculature: There is advanced atherosclerotic calcification and mild ectasia of the abdominal aorta. No abdominal aortic aneurysm is seen. 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 Bowel: There is mild sigmoid diverticulosis without CT evidence of acute diverticulitis. No bowel obstruction is seen. The appendix is not identified and reported surgically absent. Peritoneum: There is no intraperitoneal free air or abdominal ascites. Lymphadenopathy: None. Pelvic viscera: The prostate gland is enlarged and heterogeneous noting median lobe hypertrophy. The bladder wall is thickened and trabeculated indicating chronic outlet obstruction. There is a small fat-containing left inguinal hernia. Skeletal structures: The skeletal structures are osteopenic. There is mild to moderate lumbosacral spondylosis. Degenerative change is also noted in the hips. No lytic or blastic lesions are seen. IMPRESSION: 1. There are no acute infectious or inflammatory findings in the abdomen or pelvis. 2. Cardiomegaly and cardiac pacemaker. 3. There are minimal patchy opacities in the right lower lobe. Correlate cl inically for evidence of a mild infectious/inflammatory pneumonitis. 4. The kidneys are atrophic and without hydronephrosis. 5. Additional findings as above. ACT 112: Negative or not required by law. Electronically signed by: Hill Hawkins M.D. 11/08/2020 8:23 PM Dictated: 11/08/202016 Transcribed: 11/08/202016 [place], [place] [phone] XRay Report Patient: JESUS MORRELL Admit Date: 11/08/20 MR#: [id number] Address1: [address] [facility] Acct ID:[id number] Address2: Date: 1935 [facility] Zip: [place] [address] Age: 85 Location: ED Sex: M Room/Bed: Att Phy: Diagnosis: DIZZY, FALL, HYPOTENSION Evelyn Phy: Efra Hobson III, MD Service Date: 11/08/20 Fam Phy: Interpreting Phy: Hill Hawkins MD Admit Phy: Ordering Phy: Vargas Israel MD cc: ~ LEFT SHOULDER 3 VIEWS CLINICAL HISTORY: Left shoulder pain. FINDINGS: 3 views of the left shoulder are compared to study dated 03/30/2014. The skeletal structures are osteopenic. There is no radiographic evidence of fracture or dislocation. Advanced productive degenerative change is seen at the acromioclavicular joint. Arthritic change is also seen at the glenohumeral joint. Mild overlying soft tissue edema is noted. The heart is enlarged. There is evidence of congestive failure. Left apical lung parenchyma is otherwise clear as imaged. IMPRESSION: Osteopenia and degenerative change as above with no acute bony abnormality identified. Electronically signed by: Hill Hawkins M.D. 11/08/2020 7:50 PM Dictated: 11/08/201948 Transcribed: 11/08/201948 [place], [place] [phone] XRay Report Patient: JESUS MORRELL Admit Date: 11/08/20 MR#: [id number] Address1: [address] [place] [address] Acct ID:[id number] Address2: Date: 1935 [facility] Zip: [place] [address] Age: 85 Location: ED Sex: M Room/Bed: Att Phy: Diagnosis: DIZZY, FALL, HYPOTENSION Evelyn Phy: Efra Hobson III, MD Service Date: 11/08/20 Fam Phy: Interpreting Phy: Hill Hawkins MD Admit Phy: Ordering Phy: Vargas Israel MD cc: ~ SINGLE VIEW CHEST CLINICAL HISTORY: Generalized weakness. FINDINGS: 2 AP, portable, upright chest radiographs are compared to study dated 10/30/2018 and correlated with chest CT dated 12/01/2011. The patient is status post midline sternotomy and cardiac valve surgery. A 3-lead cardiac AICD largely obscures the right lower chest. The heart is enlarged noting atherosclerotic calcification and aneurysmal dilatation of the thoracic aorta. There is pulmonary vascular congestion. Scarring/atelectasis is noted at both lung bases. No large pleural effusion or pneumothorax is seen. The skeletal structures are osteopenic. The bony thorax is grossly intact. IMPRESSION: 1. Cardiomegaly and cardiac pacemaker with evidence of congestive failure. 2. There is aneurysmal dilatation of the thoracic aorta. 3. No airspace consolidation or large pleural effusion is identified. ACT 112: Negative or not required by law. Electronically signed by: Hill Hawkins M.D. 11/08/2020 7:48 PM Dictated: 11/08/201945 Transcribed: 11/08/201945 Discharge Plan Visit Data Chief Complaint: Dizziness Stated Complaint: DIZZY, FALL, HYPOTENSION ED Provider: Vargas Israel Discharge Problem: JANET (acute kidney injury), Syncope, Hypotension Patient Disposition: Admitted As Inpatient Discharge Instructions Interventions: ED Discharge Assessment Last Done: 11/08/20 22:08 Discharge Problem: Syncope Qualifiers: Syncope type: unspecified Qualified Code(s): R55 - Syncope and collapse Hypotension Qualifiers: Hypotension type: unspecified hypotension type Qualified Code(s): I95.9 - Hypotension, unspecified
[2020-11-08 19:29] LABS: Basophils # (auto) 0.01 K/uL (0-0.2); Basophils % (auto) 0.1 %; Hematocrit (blood only) 36.6 % (42-52); Hemoglobin 12.1 g/dL (14.0-18.0); Immature Granulocytes # (auto) 0.03 K/uL (0.00-0.02); Immature Granulocytes % (auto) 0.2 %; Lymphocytes # (auto) 0.68 K/uL (1.2-3.4); Mean Corpuscular Hemoglobin 29.8 pg (25-34); Mean Corpuscular Hgb Conc 33.1 g/dL (32-36); Mean Corpuscular Volume 90.1 fL (80-100); Mean Platelet Volume 11.4 fL (7.4-10.4); Monocytes # (auto) 0.91 K/uL (0.11-0.59); Monocytes % (auto) 6.7 %; Neutrophils # (auto) 12.05 K/uL (1.4-6.5); Platelet Count 100 K/uL (130-400); RDW Coefficient of Variation 15.5 % (11.5-14.5); RDW Standard Deviation 51.2 fL (36.4-46.3); Red Blood Count 4.06 M/uL (4.7-6.1); White Blood Count 13.68 K/uL (4.8-10.8)
[2020-11-08 19:35] LABS: Alanine Aminotransferase 23 U/L (12-78); Albumin Level 3.9 gm/dl (3.4-5.0); Aspartate Aminotransferase 19 U/L (15-37); BUN Creatinine Ratio 16.4 (10-20); Blood Urea Nitrogen 35 mg/dl (7-18); Calcium 9.4 mg/dl (8.5-10.1); Carbon Dioxide 25 mmol/L (21-32); Chloride 107 mmol/L (98-107); Creatinine Clr Calc Pharmacy 32.8 ml/min; Est GFR (African American) 31.8; Est GFR (Non-African American) 27.4; Glucose 99 mg/dl (70-99); Potassium 4.2 mmol/L (3.5-5.1); Sodium 140 mmol/L (136-145)
[2020-11-08 19:46] LABS: Albumin Globulin Ratio 1.3 (0.9-2); Alkaline Phosphatase 117 U/L (45-117); Bilirubin,Total 1.1 mg/dl (0.2-1); Creatine Kinase 39 U/L (39-308); Creatine Kinase MB < 1.0 ng/ml (0.5-3.6); Total Protein 6.9 gm/dl (6.4-8.2); Troponin I < 0.015 ng/ml (0-0.045)
--- NOTE | 2020-11-08 19:50 | XRay Report ---
SINGLE VIEW CHEST CLINICAL HISTORY: Generalized weakness. FINDINGS: 2 AP, portable, upright chest radiographs are compared to study dated 10/30/2018 and correla naomy with chest CT dated 12/01/2011. The patient is status post midline sternotomy and cardiac valve rodriguez rgery. A 3-lead cardiac AICD largely obscures the right lower chest. The heart is enlarged noting ath erosclerotic calcification and aneurysmal dilatation of the thoracic aorta. There is pulmonary vascul ar congestion. Scarring/atelectasis is noted at both lung bases. No large pleural effusion or pneumot horax is seen. The skeletal structures are osteopenic. The bony thorax is grossly intact. IMPRESSION: 1. Cardiomegaly and cardiac pacemaker with evidence of congestive failure. 2. There is aneurysmal dilatation of the thoracic aorta. 3. No airspace consolidation or large pleural effusion is identified. ACT 112: Negative or not required by law. Electronically signed by: Hill Hawkins M.D. 11/08/2020 7:48 PM
--- NOTE | 2020-11-08 19:51 | XRay Report ---
LEFT SHOULDER 3 VIEWS CLINICAL HISTORY: Left shoulder pain. FINDINGS: 3 views of the left shoulder are compared to study dated 03/30/2014. The skeletal structures are osteopenic. There is no radiographic evidence of fracture or dislocation. Advanced productive de generative change is seen at the acromioclavicular joint. Arthritic change is also seen at the glenoh umeral joint. Mild overlying soft tissue edema is noted. The heart is enlarged. There is evidence of congestive failure. Left apical lung parenchyma is otherwise clear as imaged. IMPRESSION: Osteopenia and degenerative change as above with no acute bony abnormality identified. Electronically signed by: Hill Hawkins M.D. 11/08/2020 7:50 PM
[2020-11-08] MEDS ORDERED: ALBUMIN 25% 12.5 GM/50 ML VIAL IV ONE (20:24)
--- NOTE | 2020-11-08 20:24 | CT Scan Report ---
CT SCAN OF THE ABDOMEN AND PELVIS WITHOUT IV CONTRAST CLINICAL HISTORY: Acute renal insufficiency. Hypertension. Vomiting. Nausea. Dizziness. COMPARISON STUDY: No priors. TECHNIQUE: CT scan of the abdomen and pelvis is performed from the lung bases to the proximal femora. Images are reviewed in the axial, sagittal, and coronal planes. IV contrast was not administered for this examination. A dose lowering technique was utilized adhering to the principles of ALARA. CT DOSE: 1278.90 mGy.cm FINDINGS: Lung bases: The patient is status post midline sternotomy and cardiac valve surgery. The heart is enl arged and without pericardial effusion. Pacemaker leads are noted. The coronary arteries are densely calcified. There are mild patchy airspace opacities in the right lower lobe. Scarring/atelectasis is seen at both lung bases. No pleural effusion is identified. A small hiatal hernia is noted. Liver: The unenhanced liver is normal in size, contour, and attenuation. There is no intrahepatic ursula iary ductal dilatation. There are scattered calcified hepatic granulomas. Gallbladder: Unremarkable. Spleen: Normal in size and attenuation. There are numerous calcified splenic granulomas. Pancreas: The unenhanced pancreas is moderately atrophic and grossly unremarkable. Adrenal glands: Unremarkable. Kidneys: The unenhanced kidneys are atrophic and without hydronephrosis. There are no renal calculi i dentified. A 5.2 cm cyst is noted in the left kidney. Abdominal vasculature: There is advanced atherosclerotic calcification and mild ectasia of the abdomi nal aorta. No abdominal aortic aneurysm is seen. 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 Bowel: There is mild sigmoid diverticulosis without CT evidence of acute diverticulitis. No bowel obs truction is seen. The appendix is not identified and reported surgically absent. Peritoneum: There is no intraperitoneal free air or abdominal ascites. Lymphadenopathy: None. Pelvic viscera: The prostate gland is enlarged and heterogeneous noting median lobe hypertrophy. The bladder wall is thickened and trabeculated indicating chronic outlet obstruction. There is a small fa t-containing left inguinal hernia. Skeletal structures: The skeletal structures are osteopenic. There is mild to moderate lumbosacral sp ondylosis. Degenerative change is also noted in the hips. No lytic or blastic lesions are seen. IMPRESSION: 1. There are no acute infectious or inflammatory findings in the abdomen or pelvis. 2. Cardiomegaly and cardiac pacemaker. 3. There are minimal patchy opacities in the right lower lobe. Correlate clinically for evidence of a mild infectious/inflammatory pneumonitis. 4. The kidneys are atrophic and without hydronephrosis. 5. Additional findings as above. ACT 112: Negative or not required by law. Electronically signed by: Hill Hawkins M.D. 11/08/2020 8:23 PM
[2020-11-08] MEDS ORDERED: NITROGLYCERIN SL 0.4 MG/TAB TAB SL PRN (21:17)
[2020-11-08] MEDS ORDERED: ONDANSETRON INJ 2 MG/ML 2 ML VIAL IV PRN (21:17)
[2020-11-08] MEDS ORDERED: POLYETHYLENE (MIRALAX) 17 GM PACK PO PRN (21:17)
[2020-11-08] MEDS ORDERED: MAGNESIUM HYDROXIDE SUSP 30 ML UDC PO PRN (21:17)
--- NOTE | 2020-11-08 21:29 | History & Physical Report ---
Date of Service November 08, 2020 Assessment & Plan (1) Syncope: 85 yo M with extensive cardiac history presenting with syncope likely secondary to hypotension and dehydration. Hypotension - secondary to dehydration from recent lasix load and entresto - gentle fluid resuscitation. received albumin and 1L NS in ER - EF 30% - lasix held, entresto held. consider reduction of dose when resuming home medications. - holding metoprolol in setting of low BP JANET - baseline Cr 1.4, up to 2.1 on admission - gentle hydration as above - stopping lasix, entresto - renally dose medications HLD - cont statin, ASA Afib, ischemic cardiomyopathy s/p AICD - cont amio DVT ppx: xarelto FEN/GI: heart healthy, <2g salt diet, Code Status: DNR/DNI Dispo: PCU (2) Systolic and diastolic CHF, acute on chronic: (3) Morbid obesity with BMI of 40.0-44.9, adult: (4) Hyperlipidemia: (5) Nonischemic cardiomyopathy: (6) AAA (abdominal aortic aneurysm): (7) Atrial flutter: (8) History of aortic valve replacement: (9) History of mitral valve prosthesis: (10) CAD (coronary artery disease): (11) Hypertension: (12) Cardiac pacemaker in situ: (13) JANET (acute kidney injury): History of Present Illness 85 yo M with hx Afib, CAD, HFrEF, AAA, HLD, aortic and mitral valve replacement, HTN who presents to ER with c/o dizziness and syncope. Reports that he had been feeling dizzy for most of the day. Patient agrees that he recently saw a PA in the [facility] Cardiology office at the end of October. He states he recently had his lasix increased to 40 mg x 3 days and then back to his alternating full/half pill schedule. He states his entresto dose was also recently increased. Review of [facility] cardiology notes show he saw Dr. Newton and 2 PAs since August. In September per the note, he was supposed to increase Entresto from 49/51 to 97/101 dose. Patient's daughter showed me a picture of what he was currently taking and refilled recently, which was the 49/51 mg prescription. At the end of october, he saw a different PA provider who increased his lasix for 3 days because he had gained weight over the course of a week. He took the increased dose as prescribed. He denies any sx of orthopnea, says his lasix controls his peripheral swelling and is not short of breath, despite requiring oxygen in the ER but not requiring it at home. He denies Connor or CP with exertion. Primary Care Provider: Efra Hobson MD Allergies Allergy/AdvReac Type Severity Reaction Status Date / Time adhesive Allergy Intermediate RASH Verified 11/08/20 21:58 diltiazem [From Cardizem] Allergy Rash Verified 11/08/20 21:59 Home Medications Medication Instructions Recorded Confirmed Type multivitamin [Multiple Vitamins] 1 tab PO QPM 09/17/18 11/08/20 History zolpidem 5 mg PO HS PRN 09/17/18 11/08/20 History rivaroxaban [Xarelto] 15 mg PO QPM 03/25/19 11/08/20 History metoprolol succinate 50 mg 50 mg PO DAILY #90 tab 05/21/20 11/08/20 Rx tablet,extended release 24 hr simvastatin 40 mg tablet 40 mg PO HS #90 tab 06/21/20 11/08/20 Rx amiodarone 200 mg PO DAILY 11/08/20 11/08/20 History aspirin [Aspir-Low] 81 mg PO QPM 11/08/20 11/08/20 History dorzolamide-timolol 1 drp OPL BID 11/08/20 11/08/20 History furosemide 10 - 40 mg PO DAILY PRN 11/08/20 11/08/20 History sacubitril-valsartan [Entresto] 1 tab PO BID 11/08/20 11/08/20 History Past Med/Surg History Medical History (Updated 11/09/20 @ 16:12 by Vargas Israel MD) AAA (abdominal aortic aneurysm) Acute on chronic combined systolic and diastolic heart failure Atrial fibrillation Atrial flutter CAD (coronary artery disease) 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 Carotid bruit Hyperlipidemia Hypertension Morbid obesity with BMI of 40.0-44.9, adult suspected GALINA with obesity hypoventilation syndrome - refuses sleep study Nonischemic cardiomyopathy EF 50-55% per 09/18/18 echo Paroxysmal atrial fibrillation Systolic and diastolic CHF, acute on chronic Thyroid nodule Surgical History (Updated 09/09/20 @ 10:59 by Randy Fenton) H/O aortic valve replacement H/O mitral valve replacement History of appendectomy History of mitral valve prosthesis History of permanent cardiac pacemaker placement history of complete heart block prior to placement in January 2012 Family History Other Cancer Heart disease Hypertension Social History Smoking Status: Never smoker Second Hand Exposure: No; Do You Dip or Chew Tobacco: No; Tobacco Cessation Education Requested by Patient: No Hx Alcohol Use: No Hx Substance Use: No Preferred Language: Nepali Communication Ability: Effective B2B Sales Representative Required: No Beliefs That Will Affect Care: None Current Living Situation: Family Current Living Situation Comment: WITH KIDS/[place]ANDSON IN [place] Other Information That Helps Us Care for You: No Feels Safe at Home: Yes Safety Concerns: Feels Safe At This Time Assistive Devices: Glasses, Oxygen - Continuous and Walker Review of Systems Constitutional: + weight gain; no fever, no body aches and no weakness Respiratory: no cough, no dyspnea and no pain on inspiration Cardiovascular: + lightheadedness, + syncope and + edema; no chest pain, no dyspnea on exertion, no orthopnea and no palpitations Gastrointestinal: no abdominal pain, no nausea, no vomiting, no constipation and no diarrhea/loose stools Neurologic: no localized weakness, no generalized weakness, no paralysis, no headache(s) and no confusion Physical Exam Physical Exam: Constitutional: obese, in no apparent distress, laying comfor tably in bed. Eyes: EOMI, pupils equal and reactive bilaterally, no scleral icterus Cardiac: RRR, no murmurs, gallops or rubs. Normal S1, S2 Pulm: CTA BL, no wheezes, rhonchi, crackles or rubs, moving air well throughout both lungs Abd: soft, nontender, distended, normal bowel sounds, no rebound or guarding Extremities: 2+ peripheral pulses, mild 1+ pitting edema bilaterally Neuro: no focal deficits, moving all 4 limbs, A&Ox3 Results & Data Results & Data ([facility]) Vital Signs (Past 12 Hours) Vital Signs Temp Pulse Resp BP Pulse Ox 11/08/20 20:45 75 24 94/49 L 97 11/08/20 20:31 75 29 H 93/48 L 99 11/08/20 20:30 75 22 100 11/08/20 20:15 76 26 H 108/69 11/08/20 20:00 111/67 11/08/20 19:47 76 27 H 94 11/08/20 19:46 76 28 H 102/73 95 11/08/20 19:45 77 20 87 L 11/08/20 19:43 88 L 11/08/20 19:30 78 20 112/91 90 11/08/20 19:22 75 23 101/60 94 11/08/20 19:20 76 20 106/56 L 95 11/08/20 19:18 75 93 11/08/20 19:15 75 106/57 L 94 11/08/20 19:10 96 11/08/20 19:09 95 11/08/20 19:05 36.8 C 75 18 105/58 L 92 Laboratory Results WBC 13.68 K/uL (4.8-10.8) H 11/08/20 19:02 RBC 4.06 M/uL (4.7-6.1) L 11/08/20 19:02 Hgb 12.1 g/dL (14.0-18.0) L 11/08/20 19:02 Hct 36.6 % (42-52) L 11/08/20 19:02 MCV 90.1 fL (80-100) 11/08/20 19:02 MCH 29.8 pg (25-34) 11/08/20 19:02 MCHC 33.1 g/dL (32-36) 11/08/20 19:02 RDW Std Deviation 51.2 fL (36.4-46.3) H 11/08/20 19:02 RDW Coeff of Radha 15.5 % (11.5-14.5) H 11/08/20 19:02 Plt Count 100 K/uL (130-400) L 11/08/20 19:02 MPV 11.4 fL (7.4-10.4) H 11/08/20 19:02 Immature Gran % (Auto) 0.2 % 11/08/20 19:02 Neut % (Auto) 88.0 % 11/08/20 19:02 Lymph % (Auto) 5.0 % 11/08/20 19:02 [place] % (Auto) 6.7 % 11/08/20 19:02 Eos % (Auto) 0.0 % 11/08/20 19:02 Baso % (Auto) 0.1 % 11/08/20 19:02 Neut # (Auto) 12.05 K/uL (1.4-6.5) H 11/08/20 19:02 Lymph # (Auto) 0.68 K/uL (1.2-3.4) L 11/08/20 19:02 [place] # (Auto) 0.91 K/uL (0.11-0.59) H 11/08/20 19:02 Eos # (Auto) 0.00 K/uL (0-0.5) 11/08/20 19:02 Baso # (Auto) 0.01 K/uL (0-0.2) 11/08/20 19:02 Immature Gran # (Auto) 0.03 K/uL (0.00-0.02) H 11/08/20 19:02 Sodium 140 mmol/L (136-145) 11/08/20 19:02 Potassium 4.2 mmol/L (3.5-5.1) 11/08/20 19:02 Chloride 107 mmol/L (98-107) 11/08/20 19:02 Carbon Dioxide 25 mmol/L (21-32) 11/08/20 19:02 Anion Gap 8.0 (3-11) 11/08/20 19:02 BUN 35 mg/dl (7-18) H 11/08/20 19:02 Creatinine 2.14 mg/dl (0.6-1.4) H 11/08/20 19:02 Est Cr Clr Drug Dosing 32.8 ml/min 11/08/20 19:02 Est GFR ( Amer) 31.8 11/08/20 19:02 Est GFR (Non-Af Amer) 27.4 11/08/20 19:02 BUN/Creatinine Ratio 16.4 (10-20) 11/08/20 19:02 Glucose 99 mg/dl (70-99) 11/08/20 19:02 Calcium 9.4 mg/dl (8.5-10.1) 11/08/20 19:02 Total Bilirubin 1.1 mg/dl (0.2-1) H 11/08/20 19:02 AST 19 U/L (15-37) 11/08/20 19:02 ALT 23 U/L (12-78) 11/08/20 19:02 Alkaline Phosphatase 117 U/L (45-117) 11/08/20 19:02 Total Creatine Kinase 39 U/L (39-308) 11/08/20 19:02 CK-MB (CK-2) < 1.0 ng/ml (0.5-3.6) 11/08/20 19:02 CK/CKMB % Calc TNP 11/08/20 19:02 Troponin I < 0.015 ng/ml (0-0.045) 11/08/20 19:02 Total Protein 6.9 gm/dl (6.4-8.2) 11/08/20 19:02 Albumin 3.9 gm/dl (3.4-5.0) 11/08/20 19:02 Globulin 3.0 gm/dl (2.5-4.0) 11/08/20 19:02 Albumin/Globulin Ratio 1.3 (0.9-2) 11/08/20 19:02 TSH 1.330 uIu/ml (0.300-4.500) 11/08/20 19:02 COVID-19 Eval Order Covid19 [facility] 11/08/20 20:20 SARS-CoV-2, RNA, NAAT NEGATIVE (NEGATIVE) 11/08/20 20:20 Supervising Physician Co-Signing Physician Notes Attending addendum: I have physically seen this patient, have supervised the medical residents activities, and agree with the H&P unless as otherwise noted. Assessment and Plan: Hypotension/JANET/HFrEF/atrial fibrillation- The patient will be admitted to telemetry for serial cardiac enzymes, serial EKG's, cardiac rhythm monitoring and a 2-D echocardiogram with Dopplers. Hold Lasix, metoprolol and Entresto for now. Status post albumin IV and 1 L normal saline in the ED with improved BP Continue amiodarone, Xarelto and aspirin. Hyperlipidemia- Continue simvastatin 40 mg at bedtime Check a fasting lipid panel Remaining orders and notations as noted Resident Activity Tracking Resident Involvement: Resident Care Provided Care Provided: Adult [facility] Medicine (1) CAD (coronary artery disease) Associated angina: without angina Coronary Disease-Associated Artery/Lesion type: [place] artery [place] vs. transplanted heart: [place] heart Qualified Code(s): I25.10 - Atherosclerotic heart disease of [place] coronary artery without angina pectoris (2) Hypertension Hypertension type: essential hypertension Qualified Code(s): I10 - Essential (primary) hypertension
[2020-11-09] MEDS: ACETAMINOPHEN 325 MG TAB PO PRN ×2 (03:44→13:25)
[2020-11-09 08:08] LABS: BUN Creatinine Ratio 12.5 (10-20); Calcium 8.9 mg/dl (8.5-10.1); Creatinine Clr Calc Pharmacy 17.9 ml/min; Est GFR (African American) 16.1; Est GFR (Non-African American) 13.9; Potassium 4.7 mmol/L (3.5-5.1)
[2020-11-09] MEDS: METOPROLOL SUCC 50MG EXT REL TAB PO SCH (08:34)
[2020-11-09] MEDS ORDERED: RIVAROXABAN 15 MG TAB PO SCH (09:00)
[2020-11-09] MEDS ORDERED: AMIODARONE 200 MG TAB PO SCH (09:00)
--- NOTE | 2020-11-09 09:20 | Cardiology Consultation ---
Date of Consultation November 09, 2020 Assessment & Plan (1) JANET (acute kidney injury): Creatinine increased to 3.7 today though does not appear to be pre-renal. Mr. Ocampo is experiencing an JANET that is likely secondary to bacterial infection likely pneumonia. It is not likely that his JANET is secondary to his diuretics/entresto though they probably exacerbated the problem which was brought on by dehydration due to illness. He has a patchy infiltrate in his right lower lobe, elevated white count, was febrile overnight, is requiring O2 and reports chills/rigors. (2) Pneumonia: Abd CT showed infiltrate rll, requiring 2L O2, febrile, leukocytosis - Will get blood cultures x2, start Rocephin and azithromycin. If he has recurrent bacteremia there is always the concern for endocarditis with his prosthetic valves especially if his infection is staph. (3) Hypotension: - Gentle IVF - 2L NSS Likely secondary to dehydration from illness Patient reports that he did not lose consciousness but had tripped and fallen in the bathroom - He should have a CT scan of his head as he did hit his head and is on Xeralto (4) Systolic and diastolic CHF, acute on chronic: will need to frequently reassess fluid status but he will need to have gentle fluid resuscitation. Once he is past his illness and is taking in good po he can resume his normal regimen Discussed Mr. Ocampo with hospitalist and he is agreeable to plan. History of Present Illness Attending Physician: Ke Ayala History of Present Illness Mr. Ocampo presented to the ED yesterday after falling in his bathroom. He had been generally unwell at home with rigors yesterday. He notes that he laid in the bathroom for sometime before his family found him. He did not lose consciousness at any time though he did report hitting his head. He denies any chest pain or palpitations. He is not sob or coughing though he is requiring oxygen which he does not wear at home. Allergies Allergy/AdvReac Type Severity Reaction Status Date / Time adhesive Allergy Intermediate RASH Verified 11/08/20 21:58 diltiazem [From Cardizem] Allergy Rash Verified 11/08/20 21:59 Home Medications Medication Instructions Recorded Confirmed Type multivitamin [Multiple Vitamins] 1 tab PO QPM 09/17/18 11/08/20 History zolpidem 5 mg PO HS PRN 09/17/18 11/08/20 History rivaroxaban [Xarelto] 15 mg PO QPM 03/25/19 11/08/20 History metoprolol succinate 50 mg 50 mg PO DAILY #90 tab 05/21/20 11/08/20 Rx tablet,extended release 24 hr simvastatin 40 mg tablet 40 mg PO HS #90 tab 06/21/20 11/08/20 Rx amiodarone 200 mg PO DAILY 11/08/20 11/08/20 History aspirin [Aspir-Low] 81 mg PO QPM 11/08/20 11/08/20 History dorzolamide-timolol 1 drp OPL BID 11/08/20 11/08/20 History furosemide 10 - 40 mg PO DAILY PRN 11/08/20 11/08/20 History sacubitril-valsartan [Entresto] 1 tab PO BID 11/08/20 11/08/20 History Patient History Medical History (Updated 11/09/20 @ 09:17 by JOLEEN Somers) AAA (abdominal aortic aneurysm) Acute on chronic combined systolic and diastolic heart failure Atrial fibrillation Atrial flutter CAD (coronary artery disease) 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 Carotid bruit Hyperlipidemia Hypertension Morbid obesity with BMI of 40.0-44.9, adult suspected GALINA with obesity hypoventilation syndrome - refuses sleep study Nonischemic cardiomyopathy EF 50-55% per 09/18/18 echo Paroxysmal atrial fibrillation Systolic and diastolic CHF, acute on chronic Thyroid nodule Surgical History (Updated 09/09/20 @ 10:59 by Randy Escoto) H/O aortic valve replacement H/O mitral valve replacement History of appendectomy History of mitral valve prosthesis History of permanent cardiac pacemaker placement history of complete heart block prior to placement in January 2012 Family History Other Cancer Heart disease Hypertension Social History Smoking Status: Never smoker Second Hand Exposure: No; Do You Dip or Chew Tobacco: No; Tobacco Cessation Education Requested by Patient: No Hx Alcohol Use: No Hx Substance Use: No Preferred Language: Malay Communication Ability: Effective Prospect Manager Required: No Beliefs That Will Affect Care: None Current Living Situation: Family Current Living Situation Comment: WITH KIDS/GRANDSON IN [place] Other Information That Helps Us Care for You: No Feels Safe at Home: Yes Safety Concerns: Feels Safe At This Time Assistive Devices: Glasses, Oxygen - Continuous and Walker Review of Systems Review of Systems: All systems reviewed & are unremarkable except as noted in HPI & below Physical Exam Constitutional: WD/WN, vitals as above Respiratory: + labored breathing Auscultation: + crackles (right base ) Cardiovascular: Rate/Rhythm: regular rate and regular rhythm Heart Sounds: + murmur (rusb systolic murmur 2/6) Extremities: no edema Skin: flushed and warm Neurologic: moves all extremities and awake Results & Data ([facility]) Vital Signs (Past 12 Hours) Vital Signs Temp Pulse Pulse Resp BP BP Pulse Ox 11/09/20 07:08 37.2 C 76 18 93/60 L 95 11/09/20 04:23 36.5 C 11/09/20 03:17 38.8 C H 76 26 H 88/53 L 96 11/08/20 23:28 37.4 C 75 25 H 95/61 L 96 11/08/20 22:30 37.5 C 75 24 112/67 97 11/08/20 21:46 75 23 89/51 L 95 11/08/20 21:30 75 27 H 88/54 L 100 11/08/20 21:16 75 29 H 92/60 L 98
[2020-11-09] MEDS ORDERED: AZITHROMYCIN 250 MG TAB PO STA (09:28)
[2020-11-09] MEDS ORDERED: cefTRIAXone SODIUM 2,000 MG in DEXTROSE 5% 50 ML IV SCH (09:30)
[2020-11-09] MEDS: cefTRIAXone SODIUM 2,000 MG in DEXTROSE 5% 50 ML IV SCH (09:59)
[2020-11-09] MEDS: SODIUM CHLORIDE 0.9% 1000ML 1,000 ML IV SCH ×2 (10:01→18:24)
--- NOTE | 2020-11-09 10:46 | Electrocardiogram Report ---
Test Reason : Blood Pressure : / mmHG Vent. Rate : 075 BPM Atrial Rate : 074 BPM P-R Int : 166 ms QRS Dur : 176 ms QT Int : 488 ms P-R-T Axes : 000 083 057 degrees QTc Int : 544 ms AV dual-paced rhythm Biventricular pacemaker detected Abnormal ECG When compared with ECG of 30-OCT-2018 14:07, Vent. rate has increased BY 4 BPM Confirmed by Lon Zimmerman ([id number]) on 11/09/2020 10:46:14 AM Referred By: REFERRED SELF Confirmed By:Lon Zimmerman
--- NOTE | 2020-11-09 10:47 | CT Scan Report ---
HEAD CT NONCONTRAST CT DOSE: 614.27 mGy.cm HISTORY: fall TECHNIQUE: Multiaxial CT images of the head were performed without the use of intravenous contrast. A utomated exposure control was utilized for this study. A dose lowering technique was utilized adheri ng to the principles of ALARA. Comparison: None. Findings: The paranasal sinuses and mastoid air cells are clear. The calvarium and skull base are int act. The ventricles and sulci are within normal limits. There is no mass, hematoma, midline shift, or acute infarct. A 6 mm sclerotic focus within the right frontal bone on image 13. This is of doubtful clinical significance.1 Impression: No acute intracranial abnormality. ACT 112: Negative or not required by law. Electronically signed by: Rui Garcia M.D. 11/09/2020 10:46 AM
[2020-11-09 16:28] LABS: Blood Urea Nitrogen 59 mg/dl (7-18); Calcium 8.2 mg/dl (8.5-10.1); Carbon Dioxide 23 mmol/L (21-32); Chloride 105 mmol/L (98-107); Creatinine Clr Calc Pharmacy 14.9 ml/min; Est GFR (African American) 12.8; Est GFR (Non-African American) 11.1; Glucose 103 mg/dl (70-99); NT Pro B Type Natriuretic Pept > 35000 pg/ml (0-1800); Sodium 135 mmol/L (136-145)
[2020-11-09 17:21] LABS: Acanthocytes 1+; Basophils # (auto) 0.01 K/uL (0-0.2); Basophils % (auto) 0.1 %; Hematocrit (blood only) 34.7 % (42-52); Hemoglobin 11.3 g/dL (14.0-18.0); Immature Granulocytes % (auto) 1.4 %; Lymphocytes # (auto) 0.85 K/uL (1.2-3.4); Lymphocytes % (auto) 5.8 %; Mean Corpuscular Hemoglobin 29.7 pg (25-34); Mean Corpuscular Hgb Conc 32.6 g/dL (32-36); Mean Corpuscular Volume 91.1 fL (80-100); Mean Platelet Volume 12.1 fL (7.4-10.4); Monocytes # (auto) 0.54 K/uL (0.11-0.59); Monocytes % (auto) 3.7 %; Neutrophils # (auto) 13.09 K/uL (1.4-6.5); Platelet Count 60 K/uL (130-400); Platelet Estimate Decreased (Normal); RDW Standard Deviation 53.1 fL (36.4-46.3); Red Blood Count 3.81 M/uL (4.7-6.1); White Blood Count 14.69 K/uL (4.8-10.8)
--- NOTE | 2020-11-09 17:32 | XRay Report ---
XR chest 1V portable CLINICAL HISTORY: HYPOXIA COMPARISON STUDY: 11/08/2020 FINDINGS: The heart remains enlarged. There is stable aneurysmal dilatation of the thoracic aorta.. T here is a right subclavian pacer/defibrillator. There is elevation of interstitium consistent with mi ld congestive failure/fluid overload. There is a valvular prosthesis.[ IMPRESSION: 1. Persistent cardiomegaly and radiographic evidence of mild congestive failure 2. Aneurysmal dilatation of the thoracic aorta 3. No evidence of acute parenchymal consolidation ACT 112: Negative or not required by law. Electronically signed by: Yury Hdz M.D. 11/09/2020 5:30 PM
[2020-11-09] MEDS ORDERED: DAPTOmycin 525 MG in SYRINGE 0 ML IV ONE (18:00)
[2020-11-09] MEDS: MULTIVITAMIN TAB PO SCH (21:30)
[2020-11-09] MEDS: SIMVASTATIN 40 MG TAB PO SCH (21:30)
[2020-11-09] MEDS: ASPIRIN 81 MG ECTAB PO SCH (21:30)
--- NOTE | 2020-11-09 22:29 | Hospitalist Progress Note ---
Date of Service November 09, 2020 Assessment & Plan (1) Sepsis: 85 yo male with bacteremia has gram positive cocci in all 4 bottles Prior to this, started ceftriaxone and azithromycin. will order dapto and monitor as Creatinine and WBC continue to rise. will consult nephro. Had consulted cardio as concern that SOB may be from CHF, however it appears to be more from the infection. (2) Gram-positive bacteremia: as stated above. will continue abx. (3) Pneumonia: Possible pneumonia as source, unconfirmed. (4) JANET (acute kidney injury): likely pre renal from poor perfusion from sepsis. will monitor (5) Nonischemic cardiomyopathy: EF: 30. Not in acute CHF. will hold hypertensive meds. (6) DVT prophylaxis: xarelto Admission and Anticipated Discharge Date Admission Date: November 08, 2020 Subjective Patient reports tired and generalized weakness. No fever, chills. Updated daughter Review of Systems Review of Systems: All systems reviewed & are unremarkable except as noted in HPI & below Physical Exam Physical Exam: General: awake, alert, no apparent distress, + obese Head: Normocephalic, atraumatic ENT: PERRL, EOMI, no pharyngeal exudate, mucous membranes moist Chest: Clear to auscultation, but coughing with deep inspiration. Appears to be using accessory muscles to breath. Cardiac: Regular rate and rhythm, +SUSHIL, no JVD, normal peripheral pulses, good capillary refill Abdominal: NABS x 4 quadrants, soft, nontender to palpation, no rebound, guarding or tenderness Extremities: Normal inspection,1+ pitting peripheral edema bilaterally, no erythema, calfs nontender to palpation Psych: Normal mood and affect Neuro: AAO x 3, strength intact bilaterally and related 5/5, no motor deficits, speech is clear, no peripheral sensory defic Results & Data Results & Data ([facility]) Vital Signs (Past 12 Hours) Vital Signs Temp Pulse Resp BP Pulse Ox 11/09/20 19:08 37 C 77 18 91/59 L 96 11/09/20 16:00 37.1 C 75 20 103/64 95 11/09/20 12:00 37.6 C H 77 22 89/56 L 96 PG Care Time/CCT Total # of Minutes Spent Total Time Spent with Patient: Total time spent is greater than 50% in coordination of care (as documented) at patient's floor/unit and/or counseling patient: Coding Level of Care Code 26668 Subseq Hosp Care Lvl 3 Diagnoses Sepsis A41.9 Gram-positive bacteremia R78.81 Pneumonia J18.9 JANET (acute kidney injury) N17.9 Nonischemic cardiomyopathy I42.8 DVT prophylaxis Z29.9
--- NOTE | 2020-11-09 22:57 | Billing Data ---
Date of Service November 09, 2020 Coding Level of Care Code 19504 Initial Inpt Care Lvl 3
--- NOTE | 2020-11-10 08:20 | Cardiology Progress Note ---
Date of Service November 10, 2020 Assessment & Plan (1) Sepsis: Patient continues to be hypotensive. Will defer to nephrology/ hospitalists on further fluid administration. (2) Gram-positive bacteremia: Blood cultures are growing gram positive cocci in chains Abx per hospitalist May want to consider ID consult Will order echo to assess valve function CBC pending (3) JANET (acute kidney injury): Creatinine continued it's upward trend yesterday to 4.5. Awaiting labs ordered for this morning. JANET likely due to ATN due to hypotension from sepsis Nephrology consulted Continue to hold Entresto and furosemide. Will also discontinue Xeralto for now due to elevated kidney function as well as decreased platelets. Is&Os appear inaccurate, will order Muñoz catheter to better assess urine output (4) Systolic and diastolic CHF, acute on chronic: Will need to frequently assess fluid status. Muñoz catheter ordered to better track output. BNP 35,000, CXR this morning with mild congestive failure. Hold on further fluid resuscitation for now May need to consult helper animal laboratory for pressor support if blood pressures continue to stay low given that with kidney function and mild fluid overload patient probably cannot tolerate more fluid. His bp MAPs remain above 65 (5) Paroxysmal atrial fibrillation: Held Xeralto as above, continue metoprolol. Amiodarone decreased to home dosing of once daily 200 mg. Will order EKG to monitor QT with amiodarone and azithromycin (6) Thoracic aortic aneurysm: Will need followed outpatient (7) Pneumonia: Abd CT showed infiltrate rll, requiring 3L O2 Abx per hospitalist (8) Hypotension: Secondary to sepsis Patient reports that he did not lose consciousness but had tripped and fallen in the bathroom - CT head without acute finding Admission and Anticipated Discharge Date Admission Date: November 08, 2020 Subjective Mr. Ocampo is a bit more alert today than yesterday. He reports feeling very weak. He is not sob, no cough, denies chest pain, palpitations, or lightheadedness. He is reporting some pain in his right thumb, he thinks from his fall. He ate his breakfast which he says is the first meal he's really eaten since getting to the hospital. He continues to require supplemental oxygen. He is pacing on the monitor with no events overnight. Review of Systems Review of Systems: All systems reviewed & are unremarkable except as noted in HPI & below Physical Exam Physical Exam: General: no distress Eyes: normal inspection, PERLL Respiratory: chest non tender, clear to auscultation, normal breath sounds, no respiratory distress, no accessory muscle use Cardiac: regular rate and rhythm, no rub or gallop, systolic murmur RUSB 3/6, trace edema bilateral lower extremities, no jvd Neuro: alert, moves all extremities Psych:oriented x 3, normal mood and affect Skin: normal color, dry Results & Data ([facility]) Vital Signs (Past 12 Hours) Vital Signs Temp Pulse Resp BP Pulse Ox 11/10/20 07:57 36.8 C 76 20 88/61 L 98 11/10/20 02:46 36.3 C L 78 18 91/59 L 100 11/09/20 23:06 36.3 C L 75 18 100/68 96 (1) Hypotension Hypotension type: unspecified hypotension type Qualified Code(s): I95.9 - Hypotension, unspecified
[2020-11-10 08:47] LABS: Hematocrit (blood only) 33.7 % (42-52); Mean Corpuscular Hemoglobin 29.6 pg (25-34); Mean Corpuscular Hgb Conc 32.6 g/dL (32-36); Mean Corpuscular Volume 90.6 fL (80-100); Mean Platelet Volume 12.6 fL (7.4-10.4); Platelet Count 49 K/uL (130-400); RDW Standard Deviation 53.5 fL (36.4-46.3); Red Blood Count 3.72 M/uL (4.7-6.1); White Blood Count 13.46 K/uL (4.8-10.8)
[2020-11-10] MEDS: AMIODARONE 200 MG TAB PO SCH (08:53)
[2020-11-10] MEDS: METOPROLOL SUCC 50MG EXT REL TAB PO SCH ×2 (08:54→08:55)
[2020-11-10] MEDS: cefTRIAXone SODIUM 2,000 MG in DEXTROSE 5% 50 ML IV SCH (08:59)
[2020-11-10] MEDS ORDERED: AZITHROMYCIN 250 MG TAB PO SCH (09:00)
[2020-11-10 09:16] LABS: Basophils # (auto) 0.01 K/uL (0-0.2); Basophils % (auto) 0.1 %; Eosinophils # (auto) 0.01 K/uL (0-0.5); Eosinophils % (auto) 0.1 %; Immature Granulocytes # (auto) 0.04 K/uL (0.00-0.02); Immature Granulocytes % (auto) 0.3 %; Lymphocytes # (auto) 1.25 K/uL (1.2-3.4); Lymphocytes % (auto) 9.3 %; Monocytes % (auto) 3.7 %; Neutrophils # (auto) 11.65 K/uL (1.4-6.5); Neutrophils % (auto) 86.5 %; Toxic Vacuolation 1+
[2020-11-10 09:18] LABS: Albumin Globulin Ratio 1.1 (0.9-2); Albumin Level 3.2 gm/dl (3.4-5.0); BUN Creatinine Ratio 13.5 (10-20); Bilirubin,Total 0.8 mg/dl (0.2-1); Calcium 8.6 mg/dl (8.5-10.1); Creatinine Clr Calc Pharmacy 12.7 ml/min; Est GFR (African American) 10.8; Est GFR (Non-African American) 9.3; Potassium 4.7 mmol/L (3.5-5.1); Total Protein 6.2 gm/dl (6.4-8.2)
--- NOTE | 2020-11-10 09:18 | XRay Report ---
XR chest 1V portable CLINICAL HISTORY: HYPOXIA COMPARISON STUDY: 11/09/2020 FINDINGS: The heart is enlarged. There is a right subclavian pacemaker/defibrillator present. There i s persistent aneurysmal dilatation of the thoracic aorta. There is persistent elevation of interstiti um likely secondary to congestive failure/fluid overload. There is no lobar consolidation[ IMPRESSION: No significant change from the prior study. Persistent cardiomegaly and radiographic evid ence of mild congestive failure/fluid overload. Persistent aneurysmal dilatation of the thoracic aort a ACT 112: Negative or not required by law. Electronically signed by: Yury Hdz M.D. 11/10/2020 9:17 AM
[2020-11-10 09:33] LABS: Fibrinogen 462 mg/dl (184-400); INR 1.4 (0.9-1.1); Partial Thromboplastin Ratio 1.6; Partial Thromboplastin Time 42.3 Seconds (21.0-31.0); Prothrombin Time 14.2 Seconds (9.0-12.0)
[2020-11-10 09:34] LABS: D Dimer 7750 ug/L FEU (0-500)
--- NOTE | 2020-11-10 10:18 | Nephrology Consultation ---
Date of Consultation November 10, 2020 Assessment & Plan (1) JANET (acute kidney injury): Oliguric. Clinically consistent with septic/ischemic ATN. Electrolytes acceptable. Volume status acceptable. No emergent indication for dialysis. Potential future indications discussed with Renny today. CT personally reviewed. No obstruction. Muñoz draining small amount of concentrated urine. BP remains low but acceptable. Avoid significantly positive fluid balance at this time due to CHF. IVF held. MAP goal >65. Medications currently appropriately dosed for kidney function. Document I/O's. Repeat metabolic profile tomorrow AM. (2) Gram-positive bacteremia: With possible pneumonia. Source of bacteremia not entirely clear. TTE pending. Antibiotic therapy discussed with Dr. Ayala this AM. (3) Sepsis: Daily blood cultures. (4) (HFpEF) heart failure with preserved ejection fraction: Cardiology following. Avoid significantly positive fluid balance. Entreto held. Diuretics held. History of Present Illness Reason for Consultation: JANET Requesting Physician: Ke Ayala Attending Physician: Ke Ayala History of Present Illness Mr. Renny Ocampo is an 85-year-old male with coronary artery disease, HFpEF, AAA, atrial fibrillation, history of heart block requiring pacer placement, hyperlipidemia, hypertension, and aortic and mitral valve replacement. He presented to [facility] on November 08 with 24 hours of rigors, lightheadedness, and a syncopal episode with fall. Evaluation notable for gram positive bacteremia and possible pneumonia. Treatment has included daptomycin, ceftriaxone, and azithromycin. IVF's provided to encourage positive fluid balance in the setting of sepsis with hypotension. Renny is +3 L. He is oliguric with 150 ml of urine output in the past 24 hours. Renny states that he has never seen a coremaker apprentice in the past. He states that his kidney function has been up and down in the past. Knowledge regarding dialysis is limited but he was receptive to discussing. Baseline creatinine has been 1.4 mg/dL. Creatinine is 5.2 mg/dL this AM. Electrolytes thankfully are acceptable. SaO2 98% on 3 L NC. CXR demonstrating mild CHF. Cardiology following. EKG demonstrating a QTc of 544 this aM. Clinically, Renny states that he has significantly improved. Tmax 38.8. BP remains low. He is asymptomatic. He denies subjective fevers or chills. He denies dyspnea. No sick contacts. COVID negative. CT abd/plv on admission demonstrated symmetrically atrophic kidneys without evidence of obstruction. A 5.2 cm cyst noted in the left kidney. Entresto and furosemide have been held. I personally discussed the plan of care with Dr. Ayala this AM. TTE pending. Allergies Allergy/AdvReac Type Severity Reaction Status Date / Time adhesive Allergy Intermediate RASH Verified 11/08/20 21:58 diltiazem [From Cardizem] Allergy Rash Verified 11/08/20 21:59 Home Medications Medication Instructions Recorded Confirmed Type multivitamin [Multiple Vitamins] 1 tab PO QPM 09/17/18 11/08/20 History zolpidem 5 mg PO HS PRN 09/17/18 11/08/20 History rivaroxaban [Xarelto] 15 mg PO QPM 03/25/19 11/08/20 History metoprolol succinate 50 mg 50 mg PO DAILY #90 tab 05/21/20 11/08/20 Rx tablet,extended release 24 hr simvastatin 40 mg tablet 40 mg PO HS #90 tab 06/21/20 11/08/20 Rx amiodarone 200 mg PO DAILY 11/08/20 11/08/20 History aspirin [Aspir-Low] 81 mg PO QPM 11/08/20 11/08/20 History dorzolamide-timolol 1 drp OPL BID 11/08/20 11/08/20 History furosemide 10 - 40 mg PO DAILY PRN 11/08/20 11/08/20 History sacubitril-valsartan [Entresto] 1 tab PO BID 11/08/20 11/08/20 History Patient History Medical History AAA (abdominal aortic aneurysm) Acute on chronic combined systolic and diastolic heart failure Atrial fibrillation Atrial flutter CAD (coronary artery disease) 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 Carotid bruit Hyperlipidemia Hypertension Morbid obesity with BMI of 40.0-44.9, adult suspected GALINA with obesity hypoventilation syndrome - refuses sleep study Nonischemic cardiomyopathy EF 50-55% per 09/18/18 echo Paroxysmal atrial fibrillation Systolic and diastolic CHF, acute on chronic Thyroid nodule Surgical History H/O aortic valve replacement H/O mitral valve replacement History of appendectomy History of mitral valve prosthesis History of permanent cardiac pacemaker placement history of complete heart block prior to placement in January 2012 Family History Other Cancer Heart disease Hypertension Social History Smoking Status: Never smoker Second Hand Exposure: No; Do You Dip or Chew Tobacco: No; Tobacco Cessation Education Requested by Patient: No Hx Alcohol Use: No Hx Substance Use: No Preferred Language: Lao Communication Ability: Effective Continuous Miner Required: No Beliefs That Will Affect Care: None Current Living Situation: Family Current Living Situation Comment: WITH KIDS/GRANDSON IN [place] Other Information That Helps Us Care for You: No Feels Safe at Home: Yes Safety Concerns: Feels Safe At This Time Assistive Devices: Glasses, Oxygen - Continuous and Walker Review of Systems Review of Systems: All systems reviewed & are unremarkable except as noted in HPI & below Physical Exam Constitutional: well developed; no acute distress Eyes: no scleral abnormality and no corneal abnormality ENMT: Mouth: no oral mucosal abnormality and oral mucous membranes not dry Neck: normal visual inspection and trachea midline Respiratory: normal respiratory effort Auscultation: lungs clear to auscultation bilaterally Cardiovascular: Rate/Rhythm: regular rate Heart Sounds: normal S1 and normal S2 Extremities: no edema Musculoskeletal: Extremities: no cyanosis and no clubbing Skin: normal turgor; no lesions Neurologic: Motor/Sensory: no tremor and no asterixis Psychiatric: Orientation: alert and oriented x 3 Results & Data ([facility]) Vital Signs (Past 12 Hours) Vital Signs Temp Pulse Resp BP Pulse Ox 11/10/20 07:57 36.8 C 76 20 88/61 L 98 11/10/20 02:46 36.3 C L 78 18 91/59 L 100 11/09/20 23:06 36.3 C L 75 18 100/68 96 Laboratory Results Laboratory Results - last 24 hr 11/09/20 11/09/20 11/09/20 15:14 15:14 16:33 WBC 14.69 H RBC 3.81 L Hgb 11.3 L Hct 34.7 L MCV 91.1 MCH 29.7 MCHC 32.6 RDW Std Deviation 53.1 H RDW Coeff of Radha 16.0 H Plt Count Not Reportable 60 L MPV 12.1 H Immature Gran % (Auto) 1.4 Neut % (Auto) 89.0 Lymph % (Auto) 5.8 Hancock % (Auto) 3.7 Eos % (Auto) 0.0 Baso % (Auto) 0.1 Neut # (Auto) 13.09 H Lymph # (Auto) 0.85 L Hancock # (Auto) 0.54 Eos # (Auto) 0.00 Baso # (Auto) 0.01 Immature Gran # (Auto) 0.20 H Toxic Vacuolation Platelet Estimate Decreased L Acanthocytes (Spur) 1+ PT INR APTT PTT Ratio Fibrinogen D-Dimer Sodium 135 L Potassium 5.0 Chloride 105 Carbon Dioxide 23 Anion Gap 7.0 BUN 59 H Creatinine 4.53 H* D Est Cr Clr Drug Dosing 14.9 Est GFR ( Amer) 12.8 Est GFR (Non-Af Amer) 11.1 BUN/Creatinine Ratio 13.0 Glucose 103 H Lactate Calcium 8.2 L Total Bilirubin AST ALT Alkaline Phosphatase NT-Pro-B Natriuret Pep > 45954 H Total Protein Albumin Globulin Albumin/Globulin Ratio 11/10/20 11/10/20 11/10/20 08:23 08:23 08:23 WBC 13.46 H RBC 3.72 L Hgb 11.0 L Hct 33.7 L MCV 90.6 MCH 29.6 MCHC 32.6 RDW Std Deviation 53.5 H RDW Coeff of Radha 16.0 H Plt Count 49 L MPV 12.6 H Immature Gran % (Auto) 0.3 Neut % (Auto) 86.5 Lymph % (Auto) 9.3 Hancock % (Auto) 3.7 Eos % (Auto) 0.1 Baso % (Auto) 0.1 Neut # (Auto) 11.65 H Lymph # (Auto) 1.25 Hancock # (Auto) 0.50 Eos # (Auto) 0.01 Baso # (Auto) 0.01 Immature Gran # (Auto) 0.04 H Toxic Vacuolation 1+ Platelet Estimate Acanthocytes (Spur) PT 14.2 H INR 1.4 H APTT 42.3 H PTT Ratio 1.6 Fibrinogen 462 H D-Dimer 7750 H* Sodium 133 L Potassium 4.7 Chloride 103 Carbon Dioxide 22 Anion Gap 8.0 BUN 72 H Creatinine 5.22 H* D Est Cr Clr Drug Dosing 12.7 Est GFR ( Amer) 10.8 Est GFR (Non-Af Amer) 9.3 BUN/Creatinine Ratio 13.5 Glucose 127 H Lactate Calcium 8.6 Total Bilirubin 0.8 AST 48 H ALT 30 Alkaline Phosphatase 80 NT-Pro-B Natriuret Pep Total Protein 6.2 L Albumin 3.2 L Globulin 3.0 Albumin/Globulin Ratio 1.1 11/10/20 10:06 WBC RBC Hgb Hct MCV MCH MCHC RDW Std Deviation RDW Coeff of Radha Plt Count MPV Immature Gran % (Auto) Neut % (Auto) Lymph % (Auto) Hancock % (Auto) Eos % (Auto) Baso % (Auto) Neut # (Auto) Lymph # (Auto) Hancock # (Auto) Eos # (Auto) Baso # (Auto) Immature Gran # (Auto) Toxic Vacuolation Platelet Estimate Acanthocytes (Spur) PT INR APTT PTT Ratio Fibrinogen D-Dimer Sodium Potassium Chloride Carbon Dioxide Anion Gap BUN Creatinine Est Cr Clr Drug Dosing Est GFR ( Amer) Est GFR (Non-Af Amer) BUN/Creatinine Ratio Glucose Lactate Pending Calcium Total Bilirubin AST ALT Alkaline Phosphatase NT-Pro-B Natriuret Pep Total Protein Albumin Globulin Albumin/Globulin Ratio PG Care Time/CCT Total # of Minutes Spent Total Time Spent with Patient: Total time spent is greater than 50% in coordination of care (as documented) at patient's floor/unit and/or counseling patient: Coding Level of Care Code 71981 Inpt Consult Level 4 Diagnoses JANET (acute kidney injury) N17.9 Gram-positive bacteremia R78.81 Sepsis A41.9 (HFpEF) heart failure with preserved ejection fraction I50.30
[2020-11-10 12:36] LABS: Appearance Urine Turbid (Clear); Bacteria Urine Automated Negative (Negative); Bilirubin Urine Negative (Negative); Blood Urine Trace (Negative); Color Urine Dark Yellow; Epithelial Cell Urine Auto >30 /lpf (0-5); Glucose Urine UA Negative (Negative); Ketones Urine Trace (Negative); Leukocyte Esterase Urine Negative (Negative); Nitrite Urine Negative (Negative); Protein Urine 2+ (Negative); RBC Urine Automated 0-4 /hpf (0-4); Specific Gravity Urine 1.022 (1.000-1.030); Urobilinogen Urine Negative (Negative)
[2020-11-10 12:51] LABS: Cast Urine Automated >30 /lpf (0-5)
[2020-11-10 12:53] LABS: Mucus Urine Present (None Prsent); Renal Epithelial Cells Urine 0-5 /lpf (0-5)
--- NOTE | 2020-11-10 17:20 | XCELERA ---
[id number]
[2020-11-10] MEDS: ASPIRIN 81 MG ECTAB PO SCH (21:06)
[2020-11-10] MEDS: SIMVASTATIN 40 MG TAB PO SCH (21:06)
[2020-11-10] MEDS: MULTIVITAMIN TAB PO SCH (21:06)
--- NOTE | 2020-11-10 21:54 | Hospitalist Progress Note ---
Date of Service November 10, 2020 Assessment & Plan (1) Sepsis: 85 yo male with bacteremia has gram positive cocci in all 4 bottles Prior to this, started ceftriaxone and azithromycin. will order dapto and monitor as Creatinine and WBC continue to rise. will consult nephro. Cultures are showing Group C strep. Pneumonia unlikely. Will dc azithromycin due to prolonged QTC. will obtain echo cardio gram. Had consulted cardio as concern that SOB may be from CHF, however it appears to be more from the infection. Visited patient multiple times today and updated daughter. D/W cardio and nephro. (2) Gram-positive bacteremia: as stated above. will continue abx. (3) Pneumonia: Possible pneumonia as source, This appears to have been ruled out. (4) JANET (acute kidney injury): likely pre renal from poor perfusion from sepsis. will monitor (5) Nonischemic cardiomyopathy: EF: 30. Not in acute CHF. will hold hypertensive meds. (6) DVT prophylaxis: xarelto Admission and Anticipated Discharge Date Admission Date: November 08, 2020 Subjective Patient reports feeling better. He has no new complaints. Review of Systems Review of Systems: All systems reviewed & are unremarkable except as noted in HPI & below Physical Exam Physical Exam: General: awake, alert, no apparent distress, + obese Head: Normocephalic, atraumatic ENT: PERRL, EOMI, no pharyngeal exudate, mucous membranes moist Chest: Clear to auscultation, but coughing with deep inspiration. Appears to be using accessory muscles to breath. Cardiac: Regular rate and rhythm, +SUSHIL, no JVD, normal peripheral pulses, good capillary refill Abdominal: NABS x 4 quadrants, soft, nontender to palpation, no rebound, guarding or tenderness Extremities: Normal inspection,1+ pitting peripheral edema bilaterally, no erythema, calfs nontender to palpation Psych: Normal mood and affect Neuro: AAO x 3, strength intact bilaterally and related 5/5, no motor deficits, speech is clear, no peripheral sensory defic Results & Data Results & Data ([facility]) Vital Signs (Past 12 Hours) Vital Signs Temp Pulse Resp BP Pulse Ox 11/10/20 19:51 36.3 C L 75 20 122/64 95 11/10/20 16:51 74 20 94/61 L 100 11/10/20 12:41 36.8 C 75 20 92/57 L 95 PG Care Time/CCT Total # of Minutes Spent Total Time Spent with Patient: Total time spent is greater than 50% in coordination of care (as documented) at patient's floor/unit and/or counseling patient: Prolonged Care Time Prolonged Care Time: Yes Total Prolonged Care Time: 65 8:00 to 8:30 10:20 to 10:30 14:30 to 14:40 18:30 to 18:45 Coding Level of Care Code 67984 Subseq Hosp Care Lvl 3 Diagnoses Sepsis A41.9 Gram-positive bacteremia R78.81 Pneumonia J18.9 JANET (acute kidney injury) N17.9 Nonischemic cardiomyopathy I42.8 DVT prophylaxis Z29.9 Additional Codes Prolonged Care Time - Prolonged Care Time: Yes ([id number]) Time Spent (min) 65
[2020-11-11 07:05] LABS: Hematocrit (blood only) 31.2 % (42-52); Hemoglobin 10.7 g/dL (14.0-18.0); Mean Corpuscular Hgb Conc 34.3 g/dL (32-36); Mean Corpuscular Volume 87.4 fL (80-100); RDW Coefficient of Variation 15.9 % (11.5-14.5); RDW Standard Deviation 51.7 fL (36.4-46.3); Red Blood Count 3.57 M/uL (4.7-6.1); White Blood Count 13.72 K/uL (4.8-10.8)
[2020-11-11 07:07] LABS: Mean Platelet Volume 11.9 fL (7.4-10.4); Platelet Count 51 K/uL (130-400)
[2020-11-11 07:23] LABS: Eosinophils # (auto) 0.05 K/uL (0-0.5); Eosinophils % (auto) 0.4 %; Immature Granulocytes # (auto) 0.02 K/uL (0.00-0.02); Immature Granulocytes % (auto) 0.1 %; Lymphocytes # (auto) 0.96 K/uL (1.2-3.4); Monocytes # (auto) 0.75 K/uL (0.11-0.59); Monocytes % (auto) 5.5 %; Neutrophils # (auto) 11.94 K/uL (1.4-6.5)
[2020-11-11 08:06] LABS: Albumin Level 3.1 gm/dl (3.4-5.0); Calcium 8.5 mg/dl (8.5-10.1); Creatinine Clr Calc Pharmacy 13.3 ml/min; Est GFR (African American) 11.5; Phosphorus 3.5 mg/dl (2.5-4.9); Potassium 4.5 mmol/L (3.5-5.1)
[2020-11-11] MEDS: METOPROLOL SUCC 50MG EXT REL TAB PO SCH (08:27)
[2020-11-11] MEDS: AMIODARONE 200 MG TAB PO SCH (08:27)
--- NOTE | 2020-11-11 08:52 | Cardiology Progress Note ---
Date of Service November 11, 2020 Assessment & Plan (1) Sepsis: Secondary to gram positive bacteremia, blood pressures now improving, afebrile (2) Gram-positive bacteremia: Blood cultures are growing group C beta strep Abx per hospitalist Echo without findings of vegetations on valves (3) JANET (acute kidney injury): Creatinine peaked at 5.2, now trending down JANET likely due to ATN due to hypotension from sepsis Nephrology consulted Continue to hold Entresto and furosemide. Continue to hold Xeralto for kidney function and decreased platelets. Depending on where his creatinine/CC lands after recovering may need to consider switching to Eliquis when time to resume anticoagulation. (4) Systolic and diastolic CHF, acute on chronic: Will need to frequently assess fluid status. BNP 35,000, CXR with mild congestive failure, low urine output. Lungs clear to auscultation - oxygenation appears to be improving as patient is saturating 100% on 3L Hold on further fluid resuscitation for now Blood pressures are improving Echo showing EF 30% and global hypokinesis of the left ventricle which is similar to previous from 06/2019 (5) Paroxysmal atrial fibrillation: Held Xeralto as above, metoprolol held 11/09 and 11/10 for parameters, continue as blood pressure permits. Amiodarone decreased to home dosing of once daily 200 mg. EKG showing QTc prolonging on 11/11, QTc improving today and azithromycin discontinued (6) Thoracic aortic aneurysm: Will need followed outpatient (7) Pneumonia: Abd CT showed infiltrate rll, requiring 3L O2 Abx per hospitalist (8) Hypotension: Secondary to sepsis Patient reports that he did not lose consciousness but had tripped and fallen in the bathroom - CT head without acute finding Admission and Anticipated Discharge Date Admission Date: November 08, 2020 Subjective Mr. Ocampo reports being less weak today but generally does not feel well. He denies any sob, cp, palpitations or light headedness. He has some bruising of his left arm. He was pacing on telemetry overnight and this morning. Afebrile overnight, blood pressures are improving. Review of Systems Review of Systems: All systems reviewed & are unremarkable except as noted in HPI & below Physical Exam Physical Exam: General: no distress Eyes: normal inspection, PERLL Respiratory: chest non tender, clear to auscultation, normal breath sounds, no respiratory distress, no accessory muscle use Cardiac: regular rate and rhythm, no rub or gallop, systolic murmur RUSB /6, trace edema bilateral lower extremities, no jvd GI/GI: torres colored urine in Muñoz bag Neuro: alert, moves all extremities Psych:oriented x 3, normal mood and affect Skin: normal color, dry, large area of left upper arm ecchymosis, left upper back ecchymosis Results & Data ([facility]) Vital Signs (Past 12 Hours) Vital Signs Temp Pulse Pulse Resp BP Pulse Ox 11/11/20 08:14 36.9 C 74 18 103/64 100 11/11/20 03:12 36.5 C 75 20 102/58 L 98 11/10/20 23:50 75 11/10/20 22:46 36.5 C 75 20 109/63 95 (1) Hypotension Hypotension type: unspecified hypotension type Qualified Code(s): I95.9 - Hypotension, unspecified
[2020-11-11] MEDS: ACETAMINOPHEN 325 MG TAB PO PRN ×2 (09:24→19:58)
[2020-11-11] MEDS: cefTRIAXone SODIUM 2,000 MG in DEXTROSE 5% 50 ML IV SCH (09:24)
--- NOTE | 2020-11-11 09:27 | Nephrology Progress Note ---
Date of Service November 11, 2020 Assessment & Plan (1) JANET (acute kidney injury): Non-oliguric. UOP improved. Muñoz intact. CT did not demonstrate obstruction. Will maintain Muñoz for I/O's today. Clinically consistent with septic/ischemic ATN. Urine demonstrating hyaline and granular casts. E lectrolytes acceptable. Volume status acceptable. No emergent indication for dialysis. Potential future indications were discussed with the patient yesterday. Thankfully, creatinine slightly improved despite increasing azotemia. Will monitor. Periods of confusion noted by nursing staff. BP remains low but acceptable. Avoid significantly positive fluid balance at this time due to CHF. I/O +500 ml in past 24 hours. Diuretics held. Medications currently appropriately dosed for kidney function. Monitor CK weekly on daptomycin. Document I/O's. Repeat metabolic profile tomorrow AM. (2) Gram-positive bacteremia: Remains on ceftriaxone and daptomycin. Clinically improving. Repeat blood cultures sent this AM. Source of bacteremia not entirely clear. TTE reviewed. No valvular lesions. (3) (HFpEF) heart failure with preserved ejection fraction: Cardiology following. Avoid significantly positive fluid balance. Entreto held. Diuretics held. Admission and Anticipated Discharge Date Admission Date: November 08, 2020 Subjective No acute events overnight. No fevers or chills. Breathing comfortably. Increased UOP. Muñoz draining straw colored urine. Review of Systems Review of Systems: All systems reviewed & are unremarkable except as noted in HPI & below Physical Exam Constitutional: well developed; no acute distress Eyes: no scleral abnormality and no corneal abnormality ENMT: Mouth: no oral mucosal abnormality and oral mucous membranes not dry Neck: normal visual inspection and trachea midline Respiratory: normal respiratory effort Auscultation: lungs clear to auscultation bilaterally Cardiovascular: Rate/Rhythm: regular rate Heart Sounds: normal S1 and normal S2 Extremities: no edema Musculoskeletal: Extremities: no cyanosis and no clubbing Skin: normal turgor; no lesions Neurologic: Motor/Sensory: no tremor and no asterixis Psychiatric: Orientation: alert and oriented x 3 Results & Data ([facility]) Vital Signs (Past 12 Hours) Vital Signs Temp Pulse Pulse Resp BP Pulse Ox 11/11/20 08:14 36.9 C 74 18 103/64 100 11/11/20 03:12 36.5 C 75 20 102/58 L 98 11/10/20 23:50 75 11/10/20 22:46 36.5 C 75 20 109/63 95 Laboratory Results Laboratory Results - last 24 hr 11/10/20 11/10/20 11/10/20 08:23 10:06 11:50 WBC RBC Hgb Hct MCV MCH MCHC RDW Std Deviation RDW Coeff of Radha Plt Count MPV Immature Gran % (Auto) Neut % (Auto) Lymph % (Auto) [place] % (Auto) Eos % (Auto) Baso % (Auto) Neut # (Auto) Lymph # (Auto) [place] # (Auto) Eos # (Auto) Baso # (Auto) Immature Gran # (Auto) PT 14.2 H INR 1.4 H APTT 42.3 H PTT Ratio 1.6 Fibrinogen 462 H D-Dimer 7750 H* Sodium Potassium Chloride Carbon Dioxide Anion Gap BUN Creatinine Est Cr Clr Drug Dosing Est GFR ( Amer) Est GFR (Non-Af Amer) BUN/Creatinine Ratio Glucose Lactate 1.3 Calcium Phosphorus Albumin Urine Color Dark Yellow Urine Appearance Turbid A Urine pH 5.0 Ur Specific Co[place] 1.022 Urine Protein 2+ H Urine Glucose (UA) Negative Urine Ketones Trace H Urine Blood Trace H Urine Nitrite Negative Urine Bilirubin Negative Urine Urobilinogen Negative Ur Leukocyte Esterase Negative Urine WBC (Auto) 5-10 H Urine RBC (Auto) 0-4 U Hyaline Cast (Auto) >30 H U Epithel Cells (Auto) >30 H Urine Bacteria (Auto) Negative Ur Renal Epithelial Cell 0-5 Granular Casts 5-10 H Urine Mucus Present A Urine Yeast Not Reportable 11/11/20 11/11/20 06:53 06:53 WBC 13.72 H RBC 3.57 L Hgb 10.7 L Hct 31.2 L MCV 87.4 MCH 30.0 MCHC 34.3 RDW Std Deviation 51.7 H RDW Coeff of Radha 15.9 H Plt Count 51 L MPV 11.9 H Immature Gran % (Auto) 0.1 Neut % (Auto) 87.0 Lymph % (Auto) 7.0 [place] % (Auto) 5.5 Eos % (Auto) 0.4 Baso % (Auto) 0.0 Neut # (Auto) 11.94 H Lymph # (Auto) 0.96 L [place] # (Auto) 0.75 H Eos # (Auto) 0.05 Baso # (Auto) 0.00 Immature Gran # (Auto) 0.02 PT INR APTT PTT Ratio Fibrinogen D-Dimer Sodium 135 L Potassium 4.5 Chloride 105 Carbon Dioxide 22 Anion Gap 8.0 BUN 89 H Creatinine 4.95 H* Est Cr Clr Drug Dosing 13.3 Est GFR ( Amer) 11.5 Est GFR (Non-Af Amer) 10.0 BUN/Creatinine Ratio 18.0 Glucose 125 H Lactate Calcium 8.5 Phosphorus 3.5 Albumin 3.1 L Urine Color Urine Appearance Urine pH Ur Specific Co[place] Urine Protein Urine Glucose (UA) Urine Ketones Urine Blood Urine Nitrite Urine Bilirubin Urine Urobilinogen Ur Leukocyte Esterase Urine WBC (Auto) Urine RBC (Auto) U Hyaline Cast (Auto) U Epithel Cells (Auto) Urine Bacteria (Auto) Ur Renal Epithelial Cell Granular Casts Urine Mucus Urine Yeast PG Care Time/CCT Total # of Minutes Spent Total Time Spent with Patient: Total time spent is greater than 50% in coordination of care (as documented) at patient's floor/unit and/or counseling patient: Coding Level of Care Code 51582 Subseq Hosp Care Lvl 3 Diagnoses JANET (acute kidney injury) N17.9 Gram-positive bacteremia R78.81 (HFpEF) heart failure with preserved ejection fraction I50.30
--- NOTE | 2020-11-11 16:38 | Electrocardiogram Report ---
Test Reason : Blood Pressure : / mmHG Vent. Rate : 081 BPM Atrial Rate : 081 BPM P-R Int : 204 ms QRS Dur : 140 ms QT Int : 450 ms P-R-T Axes : 098 157 063 degrees QTc Int : 522 ms Poor data quality, interpretation may be adversely affected AV dual-paced rhythm Biventricular pacemaker detected Abnormal ECG When compared with ECG of 10-NOV-2020 13:40, (unconfirmed) Vent. rate has decreased BY 13 BPM Confirmed by Lon Zimmerman ([id number]) on 11/11/2020 4:37:43 PM Referred By: REFERRED SELF Confirmed By:Lon Zimmerman
[2020-11-11] MEDS ORDERED: DAPTOmycin 525 MG in SYRINGE 0 ML IV SCH (18:00)
[2020-11-11] MEDS: MULTIVITAMIN TAB PO SCH (19:59)
[2020-11-11] MEDS: ASPIRIN 81 MG ECTAB PO SCH (19:59)
[2020-11-11] MEDS: SIMVASTATIN 40 MG TAB PO SCH (19:59)
--- NOTE | 2020-11-11 20:38 | Hospitalist Progress Note ---
Date of Service November 11, 2020 Assessment & Plan (1) Sepsis: 85 yo male with bacteremia has gram positive cocci in all 4 bottles Prior to this, started ceftriaxone and azithromycin. will order dapto and monitor as Creatinine and WBC continue to rise. will consult nephro. Cultures are showing Group C strep: sensitve to ceftriaxone. will hold daptomycin on 11/11 Pneumonia unlikely. dc azithromycin on 11/10 due to prolonged QTC. will obtain echo cardio gram: negative. may consider MARVIN if blood cultures remain positive. Lactic acid is normal. Had consulted cardio as concern that SOB may be from CHF, however it appears to be more from the infection. D/W cardio and nephro. (2) Gram-positive bacteremia: as stated above. will continue abx. (3) Pneumonia: Possible pneumonia as source, This appears to have been ruled out. (4) JANET (acute kidney injury): Chronic kidney disease, stage 3 likely pre renal from poor perfusion from sepsis and ATN. will monitor creatinine is finally improving. (5) Nonischemic cardiomyopathy: EF: 30. Not in acute CHF. will hold hypertensive meds. (6) DVT prophylaxis: xarelto on hold Admission and Anticipated Discharge Date Admission Date: November 08, 2020 Subjective Patient appears to be feeling better. His only new complaints are right hand pain. He also reports having pain with hs anders catheter and would like this removed. Review of Systems Review of Systems: All systems reviewed & are unremarkable except as noted in HPI & below Physical Exam Physical Exam: General: awake, alert, no apparent distress, + obese Head: Normocephalic, atraumatic ENT: PERRL, EOMI, no pharyngeal exudate, mucous membranes moist Chest: Clear to auscultation, not using accessory muscles to breath. Cardiac: Regular rate and rhythm, +SUSHIL, no JVD, normal peripheral pulses, good capillary refill Abdominal: NABS x 4 quadrants, soft, nontender to palpation, no rebound, guarding or tenderness Extremities: Normal inspection,1+ pitting peripheral edema bilaterally, no erythema, calfs nontender to palpation Psych: Normal mood and affect Neuro: AAO x 3, strength intact bilaterally and related 5/5, no motor deficits, speech is clear, no peripheral sensory defic Results & Data Results & Data ([facility]) Vital Signs (Past 12 Hours) Vital Signs Temp Pulse Resp BP Pulse Ox 11/11/20 19:20 36.5 C 75 16 134/75 99 11/11/20 15:58 36.5 C 76 20 115/70 98 11/11/20 11:56 37.1 C 75 20 106/66 99 PG Care Time/CCT Total # of Minutes Spent Total Time Spent with Patient: Total time spent is greater than 50% in coordination of care (as documented) at patient's floor/unit and/or counseling patient: Coding Level of Care Code 76403 Subseq Hosp Care Lvl 3 Diagnoses Sepsis A41.9 Gram-positive bacteremia R78.81 Pneumonia J18.9 JANET (acute kidney injury) N17.9 Nonischemic cardiomyopathy I42.8 DVT prophylaxis Z29.9 Time Spent (min) 35
[2020-11-11] MEDS ORDERED: PHENAZOPYRIDINE HCL 200 MG TAB PO STA (22:48)
--- NOTE | 2020-11-12 08:17 | Cardiology Progress Note ---
Date of Service November 12, 2020 Assessment & Plan (1) Sepsis: Secondary to gram positive bacteremia, blood pressures have normalized, afebrile (2) Gram-positive bacteremia: Blood cultures are growing group C beta strep Abx per hospitalist Echo without findings of vegetations on valves (3) JANET (acute kidney injury): Creatinine peaked at 5.2, now trending down JANET likely due to ATN due to hypotension from sepsis Nephrology consulted Continue to hold Entresto and furosemide. Continue to hold Xeralto for kidney function and decreased platelets. Depending on where his creatinine/CC lands after recovering may need to consider switching to Eliquis when time to resume anticoagulation. (4) Systolic and diastolic CHF, acute on chronic: Will need to frequently assess fluid status. BNP 35,000, CXR with mild congestive failure, low urine output. Lungs clear to auscultation - oxygenation appears to be improving as patient is saturating 100% on 4L. Hold on further fluid resuscitation for now Blood pressures are improving Echo showing EF 30% and global hypokinesis of the left ventricle which is similar to previous from 06/2019 Would hold Entresto until creatinine has recovered and blood pressures can tolerate. Would hold furosemide until kidney function improves unless nephrology is ok with starting earlier for fluid management (5) Paroxysmal atrial fibrillation: Held Xeralto as above, metoprolol held 11/09 and 11/10 for parameters, continue as blood pressure permits. Amiodarone decreased to home dosing of once daily 200 mg. EKG showing QTc prolonging on 11/10, QTc improving 11/11 and azithromycin discontinued (6) Thoracic aortic aneurysm: As noted on chest Xray I do not see from previous that this is a known thoracic aneurysm Consider CT chest to better assess and will need outpatient follow up (7) Pneumonia: Abd CT showed infiltrate rll, requiring 3L O2 Abx per hospitalist (8) Hypotension: Secondary to sepsis Patient reports that he did not lose consciousness but had tripped and fallen in the bathroom - CT head without acute finding Admission and Anticipated Discharge Date Admission Date: November 08, 2020 Subjective Mr. Ocampo is feeling better. Nursing reports he was more confused over the night though he is able to tell em events from his evening and converse without apparent confusion. He continues to feel weak and tired but otherwise denies chest pain, sob, cough, palpitations, or lightheadedness Review of Systems Review of Systems: All systems reviewed & are unremarkable except as noted in HPI & below Physical Exam Physical Exam: General: no distress Eyes: normal inspection, PERLL Respiratory: chest non tender, clear to auscultation, normal breath sounds, no respiratory distress, no accessory muscle use Cardiac: regular rate and rhythm, no rub or gallop, systolic murmur RUSB 3/6, trace edema bilateral lower extremities, no jvd GI/GI: torres colored urine in Muñoz bag Neuro: alert, moves all extremities Psych:oriented x 3, normal mood and affect Skin: normal color, dry, large area of left upper arm ecchymosis, left upper back ecchymosis Results & Data ([facility]) Vital Signs (Past 12 Hours) Vital Signs Temp Pulse Pulse Resp BP Pulse Ox 11/12/20 07:27 36.4 C L 78 20 125/74 100 11/12/20 03:01 36.8 C 76 20 128/71 99 11/12/20 00:32 37.0 C 76 24 144/73 H 99 11/11/20 23:00 76 (1) Hypotension Hypotension type: unspecified hypotension type Qualified Code(s): I95.9 - Hypotension, unspecified
[2020-11-12 08:19] LABS: Albumin Level 3.1 gm/dl (3.4-5.0); BUN Creatinine Ratio 22.7 (10-20); Creatinine Clr Calc Pharmacy 16.6 ml/min; Est GFR (Non-African American) 12.9; Phosphorus 3.6 mg/dl (2.5-4.9); Potassium 4.3 mmol/L (3.5-5.1)
[2020-11-12 08:26] LABS: Hematocrit (blood only) 32.1 % (42-52); Hemoglobin 10.9 g/dL (14.0-18.0); Mean Corpuscular Hemoglobin 29.7 pg (25-34); Mean Corpuscular Volume 87.5 fL (80-100); Mean Platelet Volume 12.1 fL (7.4-10.4); Platelet Count 63 K/uL (130-400); RDW Coefficient of Variation 15.9 % (11.5-14.5); RDW Standard Deviation 51.3 fL (36.4-46.3); Red Blood Count 3.67 M/uL (4.7-6.1); White Blood Count 10.27 K/uL (4.8-10.8)
[2020-11-12] MEDS: cefTRIAXone SODIUM 2,000 MG in DEXTROSE 5% 50 ML IV SCH (08:34)
[2020-11-12] MEDS: AMIODARONE 200 MG TAB PO SCH (08:34)
[2020-11-12] MEDS: METOPROLOL SUCC 50MG EXT REL TAB PO SCH (08:34)
--- NOTE | 2020-11-12 09:33 | XRay Report ---
XR hand RT min 3V routine CLINICAL HISTORY: pain at base of thumb COMPARISON STUDY: Right thumb 03/25/2019. FINDINGS: No acute fracture or dislocation within the right hand. There is soft tissue swelling withi n the base of the right thumb moderate osteoarthritis seen within the hand and wrist. No erosive morris ges identified. Bone mineralization is intact. IMPRESSION: 1. No fractures within the right hand. 2. Soft tissue swelling within the base of the right thumb. 3. Moderate osteoarthritis. ACT 112: Negative or not required by law. Electronically signed by: Rui Garcia M.D. 11/12/2020 9:31 AM
--- NOTE | 2020-11-12 10:44 | Nephrology Progress Note ---
Date of Service November 12, 2020 Assessment & Plan (1) JANET (acute kidney injury): Consistent with septic/ischemic ATN. Now in renal recovery. Creatinine peaked at 5.2 mg/dL on 11/10. No SIGN CARPENTER required. Electrolytes acceptable. Volume status acceptable. BP remains low but acceptable. Avoid significantly positive fluid balance at this time due to CHF. I/O +500 ml in past 24 hours. Diuretics held. Medications currently appropriately dosed for kidney function. Monitor CK weekly on daptomycin. Document I/O's. Repeat metabolic profile tomorrow AM. (2) Gram-positive bacteremia: Remains on ceftriaxone and daptomycin. Clinically improving. Repeat blood cultures sent this AM. Source of bacteremia not entirely clear. TTE reviewed. No valvular lesions. (3) (HFpEF) heart failure with preserved ejection fraction: Cardiology following. Avoid significantly positive fluid balance. Entreto held. Diuretics held. Admission and Anticipated Discharge Date Admission Date: November 08, 2020 Subjective Muñoz removed overnight. Voiding without difficulty. No fevers or chills. Denies any dyspnea or chest pain. Overall, Renny feels well this AM. Review of Systems Review of Systems: All systems reviewed & are unremarkable except as noted in HPI & below Physical Exam Constitutional: well developed; no acute distress Eyes: no scleral abnormality and no corneal abnormality ENMT: Mouth: no oral mucosal abnormality and oral mucous membranes not dry Neck: normal visual inspection and trachea midline Respiratory: normal respiratory effort Auscultation: lungs clear to auscultation bilaterally Cardiovascular: Rate/Rhythm: regular rate Heart Sounds: normal S1 and normal S2 Extremities: no edema Musculoskeletal: Extremities: no cyanosis and no clubbing Skin: normal turgor; no lesions Neurologic: Motor/Sensory: no tremor and no asterixis Psychiatric: Orientation: alert and oriented x 3 Results & Data ([facility]) Vital Signs (Past 12 Hours) Vital Signs Temp Pulse Pulse Resp BP Pulse Ox 11/12/20 07:27 36.4 C L 78 20 125/74 100 11/12/20 03:01 36.8 C 76 20 128/71 99 11/12/20 00:32 37.0 C 76 24 144/73 H 99 11/11/20 23:00 76 Laboratory Results Laboratory Results - last 24 hr 11/12/20 11/12/20 07:29 07:29 WBC 10.27 RBC 3.67 L Hgb 10.9 L Hct 32.1 L MCV 87.5 MCH 29.7 MCHC 34.0 RDW Std Deviation 51.3 H RDW Coeff of Radha 15.9 H Plt Count 63 L MPV 12.1 H Sodium 137 Potassium 4.3 Chloride 106 Carbon Dioxide 24 Anion Gap 7.0 BUN 91 H Creatinine 3.99 H D Est Cr Clr Drug Dosing 16.6 Est GFR ( Amer) 15.0 Est GFR (Non-Af Amer) 12.9 BUN/Creatinine Ratio 22.7 H Glucose 96 Calcium 9.0 Phosphorus 3.6 Albumin 3.1 L PG Care Time/CCT Total # of Minutes Spent Total Time Spent with Patient: Total time spent is greater than 50% in coordinat ion of care (as documented) at patient's floor/unit and/or counseling patient: Coding Level of Care Code 11363 Subseq Hosp Care Lvl 3 Diagnoses JANET (acute kidney injury) N17.9 Gram-positive bacteremia R78.81 (HFpEF) heart failure with preserved ejection fraction I50.30
[2020-11-12] MEDS: MULTIVITAMIN TAB PO SCH (20:26)
[2020-11-12] MEDS: ASPIRIN 81 MG ECTAB PO SCH (20:26)
[2020-11-12] MEDS: SIMVASTATIN 40 MG TAB PO SCH (20:26)
--- NOTE | 2020-11-12 22:47 | Hospitalist Progress Note ---
Date of Service November 12, 2020 Assessment & Plan (1) Sepsis: 85 yo male with bacteremia has gram positive cocci in all 4 bottles Prior to this, started ceftriaxone and azithromycin. ordered dapto and monitor as Creatinine and WBC continue to rise. will consult nephro. Cultures are showing Group C strep: sensitive to ceftriaxone. held daptomycin on 11/11 Pneumonia unlikely. Source unclear. Repeated blood culture: which has been negative dc azithromycin on 11/10 due to prolonged QTC. echocardiogram: negative for vegetations. may consider MARVIN if blood cultures remain positive. Had consulted cardio as concern that SOB may be from CHF, however it appears to be more from the infection. D/W cardio and nephro. (2) Gram-positive bacteremia: as stated above. will continue abx. (3) Pneumonia: Possible pneumonia as source, This appears to have been ruled out. (4) JANET (acute kidney injury): Chronic kidney disease, stage 3 likely pre renal from poor perfusion from sepsis and ATN. will monitor creatinine is finally improving. Peaked at 5.22 now at 3.99 (5) Nonischemic cardiomyopathy: EF: 30. Not in acute CHF. will hold hypertensive meds. (6) DVT prophylaxis: xarelto on hold Admission and Anticipated Discharge Date Admission Date: November 08, 2020 Subjective 85 yo male reports feeling better today. He states his anders catheter was removed and he is no longer having pain around his penis. He also reports that he is breathing comfortably off nasal cannula Review of Systems Review of Systems: All systems reviewed & are unremarkable except as noted in HPI & below Physical Exam 2 Physical Exam: General: awake, alert, no apparent distress, + obese Head: Normocephalic, atraumatic ENT: PERRL, EOMI, no pharyngeal exudate, mucous membranes moist Chest: Clear to auscultation, not using accessory muscles to breath. Cardiac: Regular rate and rhythm, +SUSHIL, no JVD, normal peripheral pulses, good capillary refill Abdominal: NABS x 4 quadrants, soft, nontender to palpation, no rebound, guarding or tenderness Extremities: Normal inspection,1+ pitting peripheral edema bilaterally, no erythema, calfs nontender to palpation Psych: Normal mood and affect Neuro: AAO x 3, strength intact bilaterally and related 5/5, no motor deficits, speech is clear, no peripheral sensory defic Results & Data Results & Data ([facility]) Vital Signs (Past 12 Hours) Vital Signs Temp Pulse Resp BP BP Pulse Ox Pulse Ox 11/12/20 20:34 36.9 C 75 16 118/63 96 11/12/20 14:54 36.9 C 75 20 106/67 97 11/12/20 11:48 94 11/12/20 10:48 36.5 C 78 20 118/68 96 Pulse Ox Pulse Ox 11/12/20 20:34 11/12/20 14:54 11/12/20 11:48 98 94 11/12/20 10:48 PG Care Time/CCT Total # of Minutes Spent Total Time Spent with Patient: Total time spent is greater than 50% in coordination of care (as documented) at patient's floor/unit and/or counseling patient: Coding Level of Care Code 74659 Subseq Hosp Care Lvl 3 Diagnoses Sepsis A41.9 Gram-positive bacteremia R78.81 Pneumonia J18.9 JANET (acute kidney injury) N17.9 Nonischemic cardiomyopathy I42.8 DVT prophylaxis Z29.9
[2020-11-13 07:45] LABS: Hematocrit (blood only) 31.4 % (42-52); Hemoglobin 10.6 g/dL (14.0-18.0); Mean Corpuscular Hemoglobin 29.6 pg (25-34); Mean Corpuscular Hgb Conc 33.8 g/dL (32-36); Mean Corpuscular Volume 87.7 fL (80-100); Mean Platelet Volume 12.3 fL (7.4-10.4); Platelet Count 82 K/uL (130-400); RDW Coefficient of Variation 15.8 % (11.5-14.5); Red Blood Count 3.58 M/uL (4.7-6.1); White Blood Count 10.75 K/uL (4.8-10.8)
[2020-11-13 08:13] LABS: BUN Creatinine Ratio 31.7 (10-20); Calcium 9.2 mg/dl (8.5-10.1); Creatinine Clr Calc Pharmacy 24.9 ml/min; Est GFR (African American) 24.4; Est GFR (Non-African American) 21.1; Potassium 4.2 mmol/L (3.5-5.1)
[2020-11-13] MEDS: AMIODARONE 200 MG TAB PO SCH (09:03)
[2020-11-13] MEDS: cefTRIAXone SODIUM 2,000 MG in DEXTROSE 5% 50 ML IV SCH (09:03)
[2020-11-13] MEDS: METOPROLOL SUCC 50MG EXT REL TAB PO SCH (09:03)
--- NOTE | 2020-11-13 09:56 | XRay Report ---
KUB HISTORY: Acute generalized abdominal pain with constipation Constipation COMPARISON: CT abdomen and pelvis 11/08/2020 FINDINGS: Calcified granulomata of the spleen. Nonobstructive bowel gas pattern. Moderate fecal reten tion. No renal calculi. No ureteral calculi. No pneumoperitoneum or pneumatosis. Mid lumbar dextrosc oliosis. Degenerative changes of the spine, pelvis and hips. Cardiomegaly with cardiac valvular prost hesis and pacer/AICD. No fracture. IMPRESSION: 1. Nonobstructive bowel gas pattern. 2. Moderate fecal retention. ACT 112: Negative or not required by law. The above report was generated using voice recognition software. It may contain grammatical, syntax o r spelling errors. Electronically signed by: Evaristo Flores M.D. 11/13/2020 9:55 AM
--- NOTE | 2020-11-13 10:10 | Nephrology Progress Note ---
Date of Service November 13, 2020 Assessment & Plan (1) JANET (acute kidney injury): * Septic/ischemic ATN - nonoliguric. Now in recovery phase. Cr has improved from 5.2 to 2.6 (baseline 1.4) * Volume status and electrolyte balance are acceptable. No acute indication for MINK SLICER * Poor po intake due to abdominal discomfort. Continue to hold diuretic * Monitor PRP (2) Gram-positive bacteremia: * Remains on ceftriaxone therapy. Clinically improving. 11/10 urine cx - NGTD, 11/11 blood cx - no growth x 48 hours * Source of bacteremia not entirely clear. TTE reviewed. No valvular lesions (3) (HFpEF) heart failure with preserved ejection fraction: * Cardiology following. Entreto and diuretics are being held Admission and Anticipated Discharge Date Admission Date: November 08, 2020 Subjective Mr. Ocampo was seen & examined in his hospital room this morning. He was afebrile overnight. staff cytotechnologist documented 700 cc UO over the last 24 hours. Mr. Ocampo c/o bilateral LQ abdominal discomfort. KUB x-ray this am was negative for ileus or obstruction. Review of Systems Constitutional: no fever Eyes: no problem reported Ear, Nose, Mouth, Throat: no problem reported Respiratory: no dyspnea Cardiovascular: no chest pain Gastrointestinal: + abdominal pain; no vomiting and no diarrhea/loose stools Genitourinary: no dysuria Integumentary: no rash Neurologic: no confusion Physical Exam Constitutional: + obese; not in distress Eyes: PERRL, conjunctivae normal, anicteric sclerae ENMT: external ear and nose normal, oropharynx normal Neck: trachea midline, no thyromegaly Respiratory: normal respiratory effort, lungs clear to auscultation Cardiovascular: RRR, no murmur, no edema Gastrointestinal (Abdomen): Inspection/Auscultation: normal bowel sounds Percussion/Palpation: abdomen soft; abdomen nontender and no guarding Musculoskeletal: Extremities: no cyanosis and no clubbing Skin: no rashes, warm and dry Neurologic: awake; not confused Results & Data ([facility]) Vital Signs (Past 12 Hours) Vital Signs Temp Pulse Resp BP BP Pulse Ox 11/13/20 07:00 36.3 C L 79 22 129/77 95 11/13/20 05:52 36.6 C 75 16 128/70 97 11/13/20 00:33 37 C 78 18 121/76 96 Laboratory Tests 11/13/20 11/13/20 07:32 07:32 WBC 10.75 Hgb 10.6 L Hct 31.4 L Plt Count 82 L Sodium 140 Potassium 4.2 Chloride 110 H Carbon Dioxide 23 BUN 84 H Creatinine 2.66 H D Glucose 106 H PG Care Time/CCT Total # of Minutes Spent Total Time Spent with Patient: Total time spent is greater than 50% in coordination of care (as documented) at patient's floor/unit and/or counseling patient: Coding Level of Care Code 38512 Subseq Hosp Care Lvl 3 Diagnoses JANET (acute kidney injury) N17.9 Gram-positive bacteremia R78.81 (HFpEF) heart failure with preserved ejection fraction I50.30
[2020-11-13] MEDS: TAMSULOSIN HCL 0.4 MG CAP PO SCH (10:17)
[2020-11-13 11:47] LABS: Appearance Urine Clear (Clear); Bacteria Urine Automated Negative (Negative); Bilirubin Urine Negative (Negative); Blood Urine 2+ (Negative); Color Urine Dark Yellow; Epithelial Cell Urine Auto 0-5 /lpf (0-5); Glucose Urine UA Negative (Negative); Ketones Urine Negative (Negative); Leukocyte Esterase Urine Negative (Negative); Nitrite Urine Negative (Negative); Protein Urine 1+ (Negative); Specific Gravity Urine 1.018 (1.000-1.030); Urobilinogen Urine Negative (Negative)
--- NOTE | 2020-11-13 14:59 | Hospitalist Progress Note ---
Date of Service November 13, 2020 Assessment & Plan (1) Gram-positive bacteremia: Group C beta Strep in 4/4 bottles on 11/09. Repeat cultures from 11/11 all negative. Unclear source. - Echo on 11/10 without evidence of a vegetation. - CXR on 11/09 & 11/10 both without overt evidence of pneumonia. Urine cx on 11/10 without any growth. - Continue ceftriaxone - Will consult ID given lack of source, pacemaker, and two prosthetic valves. (2) Urinary retention: On 11/13, reported suprapubic pain that had been ongoing "for 3 days." - Straight cath put out 1250 mL at 11:30am. - Will monitor PVRs (3) Sepsis: Due to bacteremia. - Resolved (4) JANET (acute kidney injury): Chronic kidney disease, stage 3. Baseline Cr ~2, though not a lot of recent creatinines prior to this. - Likely pre-renal from poor perfusion from sepsis and ATN. - Peaked at 5.22 now at 2.66. (5) Hypertension: BP today is 100/60. - Holding furosemide, Entresto for now given JANET and hypotension on admission. (6) Nonischemic cardiomyopathy: Echo on 11/10 showed EF 30 - 35% with moderate global hypokinesis. TAVR in good position. - Not in acute CHF. (7) DVT prophylaxis: Xarelto on hold Admission and Anticipated Discharge Date Admission Date: November 08, 2020 Subjective Brief conversation today. He reports suprapubic pain that he says is ongoing for 3 days. He reports "no one" has done anything about it. Refuses to discuss other issues. Physical Exam Constitutional: WD/WN, vitals as above + acute distress Eyes: EOM intact bilaterally; no conjunctival abnormality ENMT: external ear and nose normal, oropharynx normal Neck: trachea midline, no thyromegaly normal visual inspection Respiratory: able to speak in complete sentences; no respiratory distress, no labored breathing and no cough Cardiovascular: RRR, no murmur, no edema Gastrointestinal (Abdomen): Inspection/Auscultation: abdomen normal to inspection; abdomen not distended Percussion/Palpation: + abdomen tender (Suprapubic area) and abdomen soft; no guarding and abdomen not rigid Musculoskeletal: no cyanosis or clubbing, extremities motor strength 5/5 Skin: no rashes, warm and dry Neurologic: moves all extremities and awake Psychiatric: Orientation: alert and oriented to person Affect: + irritable affect Results & Data Results & Data ([facility]) Vital Signs (Past 12 Hours) Vital Signs Temp Pulse Resp BP BP Pulse Ox 11/13/20 11:47 36.5 C 77 19 100/62 99 11/13/20 07:00 36.3 C L 79 22 129/77 95 11/13/20 05:52 36.6 C 75 16 128/70 97 PG Care Time/CCT Total # of Minutes Spent Total Time Spent with Patient: Total time spent is greater than 50% in coordination of care (as documented) at patient's floor/unit and/or counseling patient: Coding Level of Care Code 59763 Subseq Hosp Care Lvl 3 Diagnoses Gram-positive bacteremia R78.81 Urinary retention R33.9 Sepsis A41.9 JANET (acute kidney injury) N17.9 Hypertension I10 Hypertension type: essential hypertension Nonischemic cardiomyopathy I42.8 DVT prophylaxis Z29.9 (1) Hypertension Hypertension type: essential hypertension Qualified Code(s): I10 - Essential (primary) hypertension
[2020-11-13] MEDS: MULTIVITAMIN TAB PO SCH (21:56)
[2020-11-13] MEDS: SIMVASTATIN 40 MG TAB PO SCH (21:56)
[2020-11-13] MEDS: ASPIRIN 81 MG ECTAB PO SCH (21:56)
[2020-11-14 06:50] LABS: Hematocrit (blood only) 29.3 % (42-52); Hemoglobin 9.7 g/dL (14.0-18.0); Mean Corpuscular Hemoglobin 29.8 pg (25-34); Mean Corpuscular Hgb Conc 33.1 g/dL (32-36); Mean Corpuscular Volume 89.9 fL (80-100); RDW Coefficient of Variation 15.8 % (11.5-14.5); RDW Standard Deviation 51.6 fL (36.4-46.3); Red Blood Count 3.26 M/uL (4.7-6.1); White Blood Count 9.68 K/uL (4.8-10.8)
[2020-11-14 06:56] LABS: Mean Platelet Volume 11.3 fL (7.4-10.4); Platelet Count 86 K/uL (130-400)
[2020-11-14 07:32] LABS: Albumin Level 2.9 gm/dl (3.4-5.0); BUN Creatinine Ratio 32.2 (10-20); Calcium 8.4 mg/dl (8.5-10.1); Creatinine Clr Calc Pharmacy 28.8 ml/min; Est GFR (African American) 29.4; Est GFR (Non-African American) 25.4; Magnesium 2.6 mg/dl (1.8-2.4); Potassium 4.5 mmol/L (3.5-5.1)
[2020-11-14 07:34] LABS: Globulin 2.9 gm/dl (2.5-4.0); Total Protein 5.8 gm/dl (6.4-8.2)
[2020-11-14] MEDS: AMIODARONE 200 MG TAB PO SCH (08:11)
[2020-11-14] MEDS: METOPROLOL SUCC 50MG EXT REL TAB PO SCH (08:11)
[2020-11-14] MEDS: TAMSULOSIN HCL 0.4 MG CAP PO SCH (08:11)
[2020-11-14] MEDS: cefTRIAXone SODIUM 2,000 MG in DEXTROSE 5% 50 ML IV SCH (08:14)
--- NOTE | 2020-11-14 09:58 | Nephrology Progress Note ---
Date of Service November 14, 2020 Assessment & Plan (1) JANET (acute kidney injury): * Septic/ischemic ATN - Now in recovery phase. Cr has improved from 5.2 to 2.2 (baseline 1.4) * Electrolyte balance iw acceptable. No acute indication for STATISTICIAN [employer]OR[employer]ICAL * Euvolemic. Continue to hold diuretic * Agree w/ Finasteride therapy. Continue PRN in & out bladder catheterization * Monitor PRP (2) Gram-positive bacteremia: * Remains on ceftriaxone therapy. / blood cultures w/ group C strep. Clinically improving. Follow up cultures are now negative * Source of bacteremia not entirely clear. TTE reviewed. No valvular lesions (two bioprothesthetic valves and pacemaker in place) (3) (HFpEF) heart failure with preserved ejection fraction: * Cardiology following. Entreto and diuretics are being held Admission and Anticipated Discharge Date Admission Date: November 08, 2020 Subjective Mr. Ocampo was seen & examined in his hospital room this morning. He reports that his suprapubic discomfort resolved following in & out bladder catheterization. He is now on Flomax therapy. Recorded UO only 400 cc o vernight Review of Systems Constitutional: no fever Eyes: no problem reported Ear, Nose, Mouth, Throat: no problem reported Respiratory: no dyspnea Cardiovascular: no chest pain Gastrointestinal: no abdominal pain Genitourinary: + urinary hesitancy; no dysuria and no hematuria Musculoskeletal: no back pain Integumentary: no rash Neurologic: no confusion Physical Exam Constitutional: + obese; not in distress Eyes: PERRL, conjunctivae normal, anicteric sclerae ENMT: external ear and nose normal, oropharynx normal Neck: trachea midline, no thyromegaly Respiratory: normal respiratory effort, lungs clear to auscultation Cardiovascular: RRR, no murmur, no edema Gastrointestinal (Abdomen): Inspection/Auscultation: normal bowel sounds Percussion/Palpation: abdomen soft; abdomen nontender and no guarding Musculoskeletal: Extremities: no cyanosis and no clubbing Skin: no rashes, warm and dry Neurologic: awake; not confused Results & Data ([facility]) Vital Signs (Past 12 Hours) Vital Signs Temp Pulse Resp BP Pulse Ox 11/14/20 07:55 37.0 C 74 20 102/63 97 11/14/20 03:52 37.1 C 75 18 109/67 95 11/13/20 23:11 36.9 C 73 18 115/71 98 Laboratory Tests 11/13/20 11/14/20 11/14/20 11:20 06:34 06:34 WBC 9.68 Hgb 9.7 L Hct 29.3 L Plt Count 86 L Sodium 140 Potassium 4.5 Chloride 109 H Carbon Dioxide 25 BUN 73 H Creatinine 2.28 H D Glucose 93 Calcium 8.4 L Albumin 2.9 L Urine Color Dark Yellow Urine Appearance Clear Urine pH 5.0 Ur Specific Reading 1.018 Urine Protein 1+ H Urine Glucose (UA) Negative Urine Blood 2+ H Urine Nitrite Negative Ur Leukocyte Esterase Negative Urine WBC (Auto) 1-5 Urine RBC (Auto) 10-30 H U Hyaline Cast (Auto) 1-5 PG Care Time/CCT Total # of Minutes Spent Total Time Spent with Patient: Total time spent is greater than 50% in coordination of care (as documented) at patient's floor/unit and/or counseling patient: Coding Level of Care Code 82416 Subseq Hosp Care Lvl 3 Diagnoses JANET (acute kidney injury) N17.9 Gram-positive bacteremia R78.81 (HFpEF) heart failure with preserved ejection fraction I50.30
--- NOTE | 2020-11-14 11:31 | Hospitalist Progress Note ---
Date of Service November 14, 2020 Assessment & Plan (1) Gram-positive bacteremia: Group C beta Strep in 4/4 bottles on 11/09. Repeat cultures from 11/11 all negative. Unclear source. - Echo on 11/10 without evidence of a vegetation. - CXR on 11/09 & 11/10 both without overt evidence of pneumonia. Urine cx on 11/10 without any growth. - Continue ceftriaxone - Will consult ID given lack of source, pacemaker, and two prosthetic valves. (2) Urinary retention: On 11/13, reported suprapubic pain that had been ongoing "for 3 days." - Straight cath put out 1250 mL at 11:30am. Has required another several. - Will monitor PVRs - Continue tamsulosin - Urology consult as the patient reports he cannot tolerate a Muñoz. I doubt we can consider TURP given bacteremia, but will at least link him in to their care. (3) Sepsis: Due to bacteremia. - Resolved (4) JANET (acute kidney injury): Chronic kidney disease, stage 3. Baseline Cr ~2, though not a lot of recent creatinines prior to this. - Likely pre-renal from poor perfusion from sepsis and ATN. - Peaked at 5.22 now at 2.3. (5) Hypertension: BP today is 110/70. - Holding furosemide, Entresto for now given JANET and hypotension on admission. (6) Nonischemic cardiomyopathy: Echo on 11/10 showed EF 30 - 35% with moderate global hypokinesis. TAVR in good position. - Not in acute CHF. - Continue ASA, statin, beta-olivia (7) Paroxysmal atrial fibrillation: EKG on 11/11 showed AV dual-paced rhythm with a Bi-V pacer - Hold anticoagulation for now - Continue beta-olivia (8) Thoracic aortic aneurysm: CXR on 11/09 showed "Aneurysmal dilatation of the thoracic aorta." - Will need CTA chest at some point, but defer until Cr down slightly. (9) DVT prophylaxis: Xarelto on hold Admission and Anticipated Discharge Date Admission Date: November 08, 2020 Subjective Doing better today. With the intermittent straight cathing, he is feeling much better. Reports no fevers/chills, chest pain, shortness of breath, abdominal pain, nausea, or vomiting. Physical Exam Constitutional: WD/WN, vitals as above + acute distress Eyes: EOM intact bilaterally; no conjunctival abnormality ENMT: external ear and nose normal, oropharynx normal Neck: trachea midline, no thyromegaly normal visual inspection Respiratory: able to speak in complete sentences; no respiratory distress, no labored breathing and no cough Cardiovascular: RRR, no murmur, no edema Gastrointestinal (Abdomen): Inspection/Auscultation: abdomen normal to inspection; abdomen not distended Percussion/Palpation: + abdomen tender (Suprapubic area) and abdomen soft; no guarding and abdomen not rigid Musculoskeletal: no cyanosis or clubbing, extremities motor strength 5/5 Skin: no rashes, warm and dry Neurologic: moves all extremities and awake Psychiatric: Orientation: alert and oriented to person Affect: + irritable affect Results & Data Results & Data ([facility]) Vital Signs (Past 12 Hours) Vital Signs Temp Pulse Resp BP BP Pulse Ox 11/14/20 11:18 37.0 C 75 19 110/69 96 11/14/20 07:55 37.0 C 74 20 102/63 97 11/14/20 03:52 37.1 C 75 18 109/67 95 11/13/20 23:11 36.9 C 73 18 115/71 98 PG Care Time/CCT Total # of Minutes Spent Total Time Spent with Patient: Total time spent is greater than 50% in coordination of care (as documented) at patient's floor/unit and/or counseling patient: Coding Level of Care Code 91420 Subseq Hosp Care Lvl 3 Diagnoses Gram-positive bacteremia R78.81 Urinary retention R33.9 Sepsis A41.9 JANET (acute kidney injury) N17.9 Hypertension I10 Hypertension type: essential hypertension Nonischemic cardiomyopathy I42.8 Paroxysmal atrial fibrillation I48.0 Thoracic aortic aneurysm I71.2 DVT prophylaxis Z29.9 (1) Hypertension Hypertension type: essential hypertension Qualified Code(s): I10 - Essential (primary) hypertension
[2020-11-14] MEDS: ASPIRIN 81 MG ECTAB PO SCH (21:12)
[2020-11-14] MEDS: SIMVASTATIN 40 MG TAB PO SCH (21:12)
[2020-11-14] MEDS: MULTIVITAMIN TAB PO SCH (21:12)
[2020-11-14] MEDS: ACETAMINOPHEN 325 MG TAB PO PRN (21:16)
[2020-11-15] MEDS: TAMSULOSIN HCL 0.4 MG CAP PO SCH (08:24)
[2020-11-15] MEDS: cefTRIAXone SODIUM 2,000 MG in DEXTROSE 5% 50 ML IV SCH (08:24)
[2020-11-15] MEDS: AMIODARONE 200 MG TAB PO SCH (08:24)
[2020-11-15] MEDS: METOPROLOL SUCC 50MG EXT REL TAB PO SCH (08:24)
[2020-11-15 08:27] LABS: Hematocrit (blood only) 28.7 % (42-52); Hemoglobin 9.5 g/dL (14.0-18.0); Mean Corpuscular Hemoglobin 29.7 pg (25-34); Mean Corpuscular Hgb Conc 33.1 g/dL (32-36); Mean Corpuscular Volume 89.7 fL (80-100); Mean Platelet Volume 11.2 fL (7.4-10.4); Platelet Count 113 K/uL (130-400); RDW Coefficient of Variation 15.8 % (11.5-14.5); RDW Standard Deviation 51.9 fL (36.4-46.3)
--- NOTE | 2020-11-15 08:53 | Cardiology Progress Note ---
Date of Service November 15, 2020 Assessment & Plan Admission and Anticipated Discharge Date Admission Date: November 08, 2020 Subjective He is awake alert he is not short of breath talking in sentences he denies any dyspnea or chest pain or chest pressure he does have some pelvic fullness as he is having difficulty voiding.He denies any fevers or chills or recurrent episodes of rigors like he had last week Results & Data ([facility]) Vital Signs (Past 12 Hours) Vital Signs Temp Pulse Resp BP BP Pulse Ox 11/15/20 07:09 37.0 C 75 16 115/68 96 11/15/20 04:00 36.6 C 77 18 91/51 L 97 11/14/20 23:44 37.2 C 75 18 114/72 95 He is awake alert and oriented x3 he looks much better than when I saw him last week. He is slightly tearful that his family is made a decision to sell his house and he will be moving closer to his family after he recovers from this. HEENT: Decreased carotid upstrokes Lungs: Crackles in the bases bilaterally no rhonchi or wheezing Heart regular rate and rhythm there is a holosystolic murmur at the apex Abdomen: Soft nontender distended positive bowel sounds Extremities mild lower extremity edema Assessment & Plan (1) Sepsis: Secondary to gram positive bacteremia, blood pressures have normalized, afebrile (2) Gram-positive bacteremia: Blood cultures Grew group C beta strep, second set is negative Abx per hospitalist but with 2 Valves and 3 Plugs And Device I would consider at least 6 weeks of antibiotics I would consider an ID consult in light of the extent of his prosthetic material in his heart does he need chronic antibiotic suppression Echo without findings of vegetations on valves (3) JANET (acute kidney injury): Creatinine peaked at 5.2, now trending down daily As renal fxn improves and Platelet count has normalized his Xarelto can be restarted. I would place him on the 15 mg dose in the next day or two. 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 He does have some pitting edema although he does not appear short of breath lying flat nor talking in sentences. (5) Paroxysmal atrial fibrillation: Continue amiodarone. As his heart rate and blood pressure allow we can reinitiate beta-blockers. 6.Dual-chamber defibrillator
[2020-11-15 09:16] LABS: BUN Creatinine Ratio 29.2 (10-20); Calcium 8.3 mg/dl (8.5-10.1); Creatinine Clr Calc Pharmacy 28.6 ml/min; Potassium 4.3 mmol/L (3.5-5.1)
--- NOTE | 2020-11-15 10:17 | Nephrology Progress Note ---
Date of Service November 15, 2020 Assessment & Plan (1) JANET (acute kidney injury): * Septic/ischemic ATN - Now in recovery phase. Cr has improved from 5.2 to 2.3 (baseline 1.4) * Electrolyte balance is acceptable. No acute indication for [employer] * Euvolemic. Continue to hold diuretic * Agree w/ Finasteride therapy. Continue PRN in & out bladder catheterization. Agree w/ obtaining Urology evaluation * Monitor PRP * No further Nephrology evaluation indicated at this time. Will sign off. Please call if further assistance is needed (2) Gram-positive bacteremia: * Remains on ceftriaxone therapy. 11/09/20 blood cultures w/ group C strep. Clinically improving. Follow up cultures are now negative * Source of bacteremia not entirely clear. TTE reviewed. No valvular lesions (two bioprothesthetic valves and pacemaker in place) (3) (HFpEF) heart failure with preserved ejection fraction: * Cardiology following. Entreto and diuretics are being held Admission and Anticipated Discharge Date Admission Date: November 08, 2020 Subjective Mr. Ocampo was seen & examined in his hospital room this morning. He is unable to void on his own and still requires in & out bladder catheterization. He is now on Flomax therapy and awaits Urology evaluation. UO was 2450 cc last 24 hours Review of Systems Constitutional: no fever Eyes: no problem reported Ear, Nose, Mouth, Throat: no problem reported Respiratory: no dyspnea Cardiovascular: no chest pain and no palpitations Gastrointestinal: no abdominal pain and no diarrhea/loose stools Genitourinary: + urinary hesitancy Musculoskeletal: no back pain Integumentary: no rash Neurologic: no confusion Physical Exam Constitutional: + obese; not in distress Eyes: PERRL, conjunctivae normal, anicteric sclerae ENMT: external ear and nose normal, oropharynx normal Neck: trachea midline, no thyromegaly Respiratory: normal respiratory effort, lungs clear to auscultation Cardiovascular: RRR, no murmur, no edema Gastrointestinal (Abdomen): Inspection/Auscultation: normal bowel sounds Percussion/Palpation: abdomen soft; abdomen nontender and no guarding Musculoskeletal: Extremities: no cyanosis and no clubbing Skin: no rashes, warm and dry Neurologic: awake; not confused Results & Data ([facility]) Vital Signs (Past 12 Hours) Vital Signs Temp Pulse Resp BP BP Pulse Ox 11/15/20 07:09 37.0 C 75 16 115/68 96 11/15/20 04:00 36.6 C 77 18 91/51 L 97 11/14/20 23:44 37.2 C 75 18 114/72 95 Laboratory Tests 11/15/20 11/15/20 08:01 08:01 WBC 9.20 Hgb 9.5 L Hct 28.7 L Plt Count 113 L Sodium 140 Potassium 4.3 Chloride 110 H Carbon Dioxide 23 BUN 67 H Creatinine 2.31 H Glucose 117 H PG Care Time/CCT Total # of Minutes Spent Total Time Spent with Patient: Total time spent is greater than 50% in co ordination of care (as documented) at patient's floor/unit and/or counseling patient: Coding Level of Care Code 47285 Subseq Hosp Care Lvl 3 Diagnoses JANET (acute kidney injury) N17.9 Gram-positive bacteremia R78.81 (HFpEF) heart failure with preserved ejection fraction I50.30
--- NOTE | 2020-11-15 12:16 | Urology Consultation ---
Date of Consultation November 15, 2020 Assessment & Plan (1) Urinary retention: 85 yo M admitted with syncope secondary to hypotension, JANET; subsequent urinary retention. - Past medical/surgical history reviewed, hospital course reviewed - Urinary retention likely multifactorial with chronic bladder outlet obstruction, acute illness, deconditioning, etc - Creatinine increased slightly today to 2.31 - Elevated bladder scans and high urine output volumes via straight cath, infrequent catheterization noted - Recommend insert Muñoz catheter and maintain for 10-14 days for max drainage and bladder decompression - Alternatively could initiate straight catheterization regimen Q3 hours and te ach patient CIC - He prefers to replace the Muñoz catheter - order placed, and RN made aware - Continue Tamsulosin, can consider dual therapy with addition of Finasteride - Will arrange outpatient follow-up with our service for cystoscopy and voiding trial Thank you for allowing us to participate in the acute care of Mr. Ocampo. Please reconsult us with additional questions, concerns or changes in patient status. History of Present Illness Reason for Consultation: Urinary retention Requesting Physician: Dr. Edgar Sifuentes Attending Physician: Edgar Sifuentes MD History of Present Illness 85 yo M admitted with syncope secondary to hypotension, JANET. PMHx Afib, CAD, HFpEF, AAA, HLD, HTN, hyperlipidemia, cardiac pacemaker, history of aortic and mitral valve replacement. Patient with extensive cardiac history presented to [facility] ED on 11/08/20 after episode of syncope and fall in his bathroom, recent rigors and lightheadedness. Afebrile on arrival. Lab work: creatinine 2.14, WBC 13.68, Hgb 12.1, COVID negative. Urine and blood cultures collected. His hospital course is reviewed. He was admitted by hospital medicine for further management. Followed by Cardiology and Nephrology during admission. Initial blood cultures showed gram- positive bacteremia without clear etiology. He was treated for possible pneumonia. Echo on 11/10 without evidence of a vegetation. Urine culture showed no growth. Treatment has included daptomycin, ceftriaxone, and azithromycin. Our service is consulted for urinary retention. Muñoz initially in place during admission, but was removed on 11/12 due to discomfort. He has been unable to void and required intermittent straight catheterization since Muñoz discontinued. Per chart review, high PVRs and bladder scans with large volume urine output via straight cath including 1250 mL, 900 mL, and 700 mL. Tamsulosin initiated by primary team. Chart review: Afebrile Creatinine 2.31 WBC 9.20 Hgb 9.[address] A/P on admission demonstrated symmetrically atrophic kidneys without evidence of obstruction. A 5.2 cm cyst noted in the left kidney. Additionally noted enlarged prostate, bladder wall thickening and trabeculated bladder. Patient awake, alert and sitting up in his bedside chair. Offers no complaints at this time. No flank, abdominal or suprapubic pain. Has been unable to void on his own since his Muñoz removed. No dysuria or hematuria. No fever or chills. Tolerating diet, no nausea or vomiting. BM this morning. Denies constipation. No CP or SOB. No prior urology evaluations. Denies prior medications for his voiding. Baseline urinary symptoms include Nocturia x 1-2, stream fair - notes he sits to void, some urgency with occasional leakage, no hesitancy. Denies personal history of kidney stones. Reports that his son and daughter have hx of kidney stones. Denies family history of prostate, bladder or kidney cancer. He is unsure of his last PSA. Per chart review, PSA was 0.9 in October 2011. Never smoker. No additional concerns today. Allergies Allergy/AdvReac Type Severity Reaction Status Date / Time adhesive Allergy Intermediate RASH Verified 11/08/20 21:58 diltiazem [From Cardizem] Allergy Rash Verified 11/08/20 21:59 Home Medications Medication Instructions Recorded Confirmed Type multivitamin [Multiple Vitamins] 1 tab PO QPM 09/17/18 11/08/20 History zolpidem 5 mg PO HS PRN 09/17/18 11/08/20 History rivaroxaban [Xarelto] 15 mg PO QPM 03/25/19 11/08/20 History metoprolol succinate 50 mg 50 mg PO DAILY #90 tab 05/21/20 11/08/20 Rx tablet,extended release 24 hr simvastatin 40 mg tablet 40 mg PO HS #90 tab 06/21/20 11/08/20 Rx amiodarone 200 mg PO DAILY 11/08/20 11/08/20 History aspirin [Aspir-Low] 81 mg PO QPM 11/08/20 11/08/20 History dorzolamide-timolol 1 drp OPL BID 11/08/20 11/08/20 History furosemide 10 - 40 mg PO DAILY PRN 11/08/20 11/08/20 History sacubitril-valsartan [Entresto] 1 tab PO BID 11/08/20 11/08/20 History Patient History Medical History AAA (abdominal aortic aneurysm) Acute on chronic combined systolic and diastolic heart failure Atrial fibrillation Atrial flutter CAD (coronary artery disease) 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 Carotid bruit Hyperlipidemia Hypertension Morbid obesity with BMI of 40.0-44.9, adult suspected GALINA with obesity hypoventilation syndrome - refuses sleep study Nonischemic cardiomyopathy EF 50-55% per 09/18/18 echo Paroxysmal atrial fibrillation Systolic and diastolic CHF, acute on chronic Thyroid nodule Surgical History H/O aortic valve replacement H/O mitral valve replacement History of appendectomy History of mitral valve prosthesis History of permanent cardiac pacemaker placement history of complete heart block prior to placement in January 2012 Family History Other Cancer Heart disease Hypertension Social History Smoking Status: Never smoker Second Hand Exposure: No; Do You Dip or Chew Tobacco: No; Tobacco Cessation Education Requested by Patient: No Hx Alcohol Use: No Hx Substance Use: No Preferred Language: Chinese Communication Ability: Effective Plant Wrapper Required: No Beliefs That Will Affect Care: None Current Living Situation: Family Current Living Situation Comment: WITH KIDS/GRANDSON IN [place] Other Information That Helps Us Care for You: No Feels Safe at Home: Yes Safety Concerns: Feels Safe At This Time Assistive Devices: Glasses and Walker Review of Systems Constitutional: as per Subjective / HPI Ear, Nose, Mouth, Throat: no problem reported Respiratory: no dyspnea Cardiovascular: no chest pain Gastrointestinal: as per Subjective / HPI Genitourinary: + as per Subjective / HPI Musculoskeletal: no problem reported Integumentary: no problem reported Neurologic: no problem reported Psychiatric: no problem reported Physical Exam Constitutional: well developed and well nourished; no acute distress and not ill appearing Eyes: no scleral abnormality Respiratory: normal respiratory effort and able to speak in complete sentences; no respiratory distress and no labored breathing Cardiovascular: Extremities: no pedal edema Gastrointestinal (Abdomen): Inspection/Auscultation: abdomen normal to inspection; abdomen not distended Percussion/Palpation: abdomen soft; abdomen nontender and no guarding Musculoskeletal: Head/Neck/Chest: normocephalic and head atraumatic Skin: no rashes, warm and dry Neurologic: moves all extremities and awake Psychiatric: Orientation: alert and oriented x 3 Genitourinary: no CVA tenderness Results & Data ([facility]) Vital Signs (Past 12 Hours) Vital Signs Temp Pulse Resp BP Pulse Ox 11/15/20 11:34 36.6 C 75 16 115/74 97 11/15/20 07:09 37.0 C 75 16 115/68 96 11/15/20 04:00 36.6 C 77 18 91/51 L 97 PG Care Time/CCT Total # of Minutes Spent Total Time Spent with Patient: Total time spent is greater than 50% in coordination of care (as documented) at patient's floor/unit and/or counseling patient: Coding Level of Care Code 46853 Initial Inpt Care Lvl 3 Diagnoses Urinary retention R33.9
--- NOTE | 2020-11-15 14:40 | Hospitalist Progress Note ---
Date of Service November 15, 2020 Assessment & Plan (1) Gram-positive bacteremia: Group C beta Strep in 4/4 bottles on 11/09. Repeat cultures from 11/11 all negative. Unclear source. - Echo on 11/10 without evidence of a vegetation. - CXR on 11/09 & 11/10 both without overt evidence of pneumonia. Urine cx on 11/10 without any growth. - Continue ceftriaxone - ID consulted - Recommend 4-6 weeks of antibiotic therapy. In discussion with cardiology, not really a candidate for hardware removal. Will reach out to ID in regards to duration and possible long-term suppression. (2) Urinary retention: On 11/13, reported suprapubic pain that had been ongoing "for 3 days." - Straight cath put out 1250 mL at 11:30am. Has required another several. - Will monitor PVRs - Continue tamsulosin - Urology consulted - Re-inserted Muñoz and will plan for outpatient follow-up with cystoscopy and voiding trial. (3) Sepsis: Due to bacteremia. - Resolved (4) JANET (acute kidney injury): Chronic kidney disease, stage 3. Baseline Cr ~2, though not a lot of recent creatinines prior to this. - Likely pre-renal from poor perfusion from sepsis and ATN. - Peaked at 5.22 now at 2.3. (5) Hypertension: BP today is 110/70. - Holding furosemide, Entresto for now given JANET and hypotension on admission. (6) Nonischemic cardiomyopathy: Echo on 11/10 showed EF 30 - 35% with moderate global hypokinesis. TAVR in good position. - Not in acute CHF. - Continue ASA, statin, beta-olivia (7) Paroxysmal atrial fibrillation: EKG on 11/11 showed AV dual-paced rhythm with a Bi-V pacer - Continue beta-olivia - Restart Xarelto at 15 mg dose (8) Thoracic aortic aneurysm: CXR on 11/09 showed "Aneurysmal dilatation of the thoracic aorta." - Will need CTA chest at some point, but defer until Cr down slightly. (9) DVT prophylaxis: Xarelto Admission and Anticipated Discharge Date Admission Date: November 08, 2020 Subjective Just feels tired today. No fevers chills. Reports no fevers/chills, chest pain, shortness of breath, abdominal pain, nausea, or vomiting. Physical Exam Constitutional: WD/WN, vitals as above no acute distress Eyes: EOM intact bilaterally; no conjunctival abnormality ENMT: external ear and nose normal, oropharynx normal Neck: trachea midline, no thyromegaly normal visual inspection Respiratory: able to speak in complete sentences; no respiratory distress, no labored breathing and no cough Cardiovascular: RRR, no murmur, no edema Gastrointestinal (Abdomen): Inspection/Auscultation: abdomen normal to inspection; abdomen not distended Percussion/Palpation: abdomen soft; abdomen nontender, no guarding and abdomen not rigid Musculoskeletal: no cyanosis or clubbing, extremities motor strength 5/5 Skin: no rashes, warm and dry Neurologic: moves all extremities and awake Psychiatric: Orientation: alert and oriented to person Results & Data Results & Data ([facility]) Vital Signs (Past 12 Hours) Vital Signs Temp Pulse Resp BP Pulse Ox 11/15/20 11:34 36.6 C 75 16 115/74 97 11/15/20 07:09 37.0 C 75 16 115/68 96 11/15/20 04:00 36.6 C 77 18 91/51 L 97 PG Care Time/CCT Total # of Minutes Spent Total Time Spent with Patient: Total time spent is greater than 50% in coordination of care (as documented) at patient's floor/unit and/or counseling patient: Coding Level of Care Code 50581 Subseq Hosp Care Lvl 3 Diagnoses Gram-positive bacteremia R78.81 Urinary retention R33.9 Sepsis A41.9 JANET (acute kidney injury) N17.9 Hypertension I10 Hypertension type: essential hypertension Nonischemic cardiomyopathy I42.8 Paroxysmal atrial fibrillation I48.0 Thoracic aortic aneurysm I71.2 DVT prophylaxis Z29.9 (1) Hypertension Hypertension type: essential hypertension Qualified Code(s): I10 - Essential (primary) hypertension
--- NOTE | 2020-11-15 17:23 | XRay Report ---
XR hand RT min 3V routine CLINICAL HISTORY: Right hand pain COMPARISON: 11/12/2020 DISCUSSION: There is ulnar minus variance. There are persistent arthritic changes with joint space na rrowing most pronounced the level of the third metacarpal phalangeal joint. There are mild to moderat e arthritic changes present the level of the interphalangeal joint of the thumb, and first carpometac arpal joint. Degenerative changes are also evident at the level of the second through fifth distal in terphalangeal joints. IMPRESSION: 1. No acute fractures 2. Moderate arthritic change in an overall pattern consistent with osteoarthritis.. ACT 112: Negative or not required by law. Electronically signed by: Yury Hdz M.D. 11/15/2020 5:22 PM
[2020-11-15] MEDS: SIMVASTATIN 40 MG TAB PO SCH (20:26)
[2020-11-15] MEDS: MULTIVITAMIN TAB PO SCH (20:27)
[2020-11-15] MEDS: ASPIRIN 81 MG ECTAB PO SCH (20:27)
[2020-11-15] MEDS: ACETAMINOPHEN 325 MG TAB PO PRN (20:27)
[2020-11-16 08:47] LABS: Hematocrit (blood only) 28.6 % (42-52); Hemoglobin 9.4 g/dL (14.0-18.0); Mean Corpuscular Hemoglobin 29.5 pg (25-34); Mean Corpuscular Hgb Conc 32.9 g/dL (32-36); Mean Corpuscular Volume 89.7 fL (80-100); Platelet Count 126 K/uL (130-400); RDW Coefficient of Variation 15.7 % (11.5-14.5); RDW Standard Deviation 52.6 fL (36.4-46.3); Red Blood Count 3.19 M/uL (4.7-6.1); White Blood Count 7.04 K/uL (4.8-10.8)
[2020-11-16] MEDS: METOPROLOL SUCC 50MG EXT REL TAB PO SCH (09:00)
[2020-11-16] MEDS: TAMSULOSIN HCL 0.4 MG CAP PO SCH (09:01)
[2020-11-16] MEDS: AMIODARONE 200 MG TAB PO SCH (09:01)
[2020-11-16] MEDS: RIVAROXABAN 15 MG TAB PO SCH (09:01)
[2020-11-16 09:04] LABS: BUN Creatinine Ratio 26.2 (10-20); Calcium 8.8 mg/dl (8.5-10.1); Creatinine Clr Calc Pharmacy 32.2 ml/min; Est GFR (African American) 33.3; Est GFR (Non-African American) 28.7; Magnesium 2.3 mg/dl (1.8-2.4); Potassium 4.4 mmol/L (3.5-5.1)
--- NOTE | 2020-11-16 10:20 | Cardiology Progress Note ---
Date of Service November 16, 2020 Assessment & Plan (1) Sepsis: Secondary to gram positive bacteremia, blood pressures have normalized, afebrile (2) Gram-positive bacteremia: Blood cultures are growing group C beta strep Abx per hospitalist Echo without findings of vegetations on valves ID consulted - Recommend 4-6 weeks of antibiotic therapy. Mr. Ocampo is not a candidate for hardware removal. 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 (3) JANET (acute kidney injury): Creatinine peaked at 5.2, now trending down to 2.0 today JANET likely due to ATN due to hypotension from sepsis Nephrology consulted and has signed off Continue to hold Entresto. Patient is off oxygen but does have some pitting edema. Would hold on resuming furosemide as long as his respiratory status is stable. He does have some trace pitting edema in his lower extremities. (4) Systolic and diastolic CHF, acute on chronic: Will need to frequently assess fluid status. Lungs clear to auscultation - oxygenation improving and now on room air Echo showing EF 30% and global hypokinesis of the left ventricle which is similar to previous from 06/2019 Would hold Entresto until creatinine has recovered and blood pressures can tolerate. Would hold furosemide as above (5) Paroxysmal atrial fibrillation: Xeralto resumed. Continue metoprolol as bp can tolerate. Continue Amiodarone (6) Thoracic aortic aneurysm: As noted on chest Xray I do not see from previous that this is a known thoracic aneurysm Consider CT chest to better assess and will need outpatient follow up (7) Pneumonia: Abd CT showed infiltrate rll, requiring 3L O2 Abx per hospitalist (8) Hypotension: Secondary to sepsis Patient reports that he did not lose consciousness but had tripped and fallen in the bathroom - CT head without acute finding (9) Visual changes: Right eye with fuzzy vision and floaters, per patient since his fall. CT of his head was without acute event. Discussed with hospitalist - they are going to arrange for ophthalmology evaluation Admission and Anticipated Discharge Date Admission Date: November 08, 2020 Subjective Mr. Ocampo is feeling well, has no complaints other than seeing "floater" in his right eye with fuzzy vision which started with his fall prior to admission. He denies any sob, cough, cp, palpitations, lightheadedness or orthopnea. Review of Systems Review of Systems: All systems reviewed & are unremarkable except as noted in HPI & below Physical Exam Constitutional: WD/WN, vitals as above Respiratory: normal respiratory effort, lungs clear to auscultation Cardiovascular: Rate/Rhythm: regular rate and regular rhythm Heart Sounds: + murmur (Lusb 2/6 systolic ) Skin: no rashes, warm and dry Neurologic: moves all extremities and awake Psychiatric: A+Ox3, euthymic affect Results & Data ([facility]) Vital Signs (Past 12 Hours) Vital Signs Temp Pulse Resp BP Pulse Ox 11/16/20 08:00 36.5 C 76 17 133/83 97 11/16/20 03:00 36.6 C 75 16 130/78 94 11/15/20 23:00 36.9 C 74 16 106/67 95 (1) Hypotension Hypotension type: unspecified hypotension type Qualified Code(s): I95.9 - Hypotension, unspecified
--- NOTE | 2020-11-16 14:53 | Hospitalist Progress Note ---
Date of Service November 16, 2020 Assessment & Plan (1) Gram-positive bacteremia: Group C beta Strep in 4/4 bottles on 11/09. Repeat cultures from 11/11 all negative. Unclear source. - Echo on 11/10 without evidence of a vegetation. - CXR on 11/09 & 11/10 both without overt evidence of pneumonia. Urine cx on 11/10 without any growth. - Continue ceftriaxone - ID consulted - Recommend 4-6 weeks of antibiotic therapy. In discussion with cardiology, not really a candidate for hardware removal. Will reach out to ID in regards to duration and possible long-term suppression. (2) Visual changes: Describes it as copious floaters that have settled, now with a "spider web" that moves with his vision. Discussed with multiple eye providers, including the on-call tour escort who feels it is likely a partial vitreous detachment. They will see him in the outpatient setting as they feel inpatient exam is limited due to limited equipment ability. - No inpatient needs - Close outpatient follow-up (3) Urinary retention: On 11/13, reported suprapubic pain that had been ongoing "for 3 days." - Straight cath put out 1250 mL at 11:30am. Has required another several. - Will monitor PVRs - Continue tamsulosin - Urology consulted - Re-inserted Muñoz and will plan for outpatient follow-up with cystoscopy and voiding trial. (4) Sepsis: Due to bacteremia. - Resolved (5) JANET (acute kidney injury): Chronic kidney disease, stage 3. Baseline Cr ~2, though not a lot of recent creatinines prior to this. - Likely pre-renal from poor perfusion from sepsis and ATN. - Peaked at 5.22 now at 2.0. (6) Hypertension: BP today is 130/70. - Holding furosemide, Entresto for now given JANET and hypotension on admission. (7) Nonischemic cardiomyopathy: Echo on 11/10 showed EF 30 - 35% with moderate global hypokinesis. TAVR in good position. - Not in acute CHF. - Continue ASA, statin, beta-olivia (8) Paroxysmal atrial fibrillation: EKG on 11/11 showed AV dual-paced rhythm with a Bi-V pacer - Continue beta-olivia - Restart Xarelto at 15 mg dose (9) Thoracic aortic aneurysm: CXR on 11/09 showed "Aneurysmal dilatation of the thoracic aorta." - Will need CTA chest at some point, but defer until Cr down slightly. (10) DVT prophylaxis: Xarelto Admission and Anticipated Discharge Date Admission Date: November 08, 2020 Subjective Doing well today. Notes right eye "spiderweb" in vision that floats back and forth when he looks around. Has been going on since his admission, but he didn't mention it to anyone. Reports no fevers/chills, chest pain, shortness of breath, abdominal pain, nausea, or vomiting. Physical Exam Constitutional: WD/WN, vitals as above no acute distress Eyes: PERRL, EOM intact bilaterally and reactive pupils; no conjunctival abnormality, no papilledema and no anterior chamber abnormality ENMT: external ear and nose normal, oropharynx normal Neck: trachea midline, no thyromegaly normal visual inspection Respiratory: able to speak in complete sentences; no respiratory distress, no labored breathing and no cough Cardiovascular: RRR, no murmur, no edema Gastrointestinal (Abdomen): Inspection/Auscultation: abdomen normal to inspection; abdomen not distended Percussion/Palpation: abdomen soft; abdomen nontender, no guarding and abdomen not rigid Musculoskeletal: no cyanosis or clubbing, extremities motor strength 5/5 Skin: no rashes, warm and dry Neurologic: moves all extremities and awake Psychiatric: Orientation: alert and oriented to person Affect: + irritable affect Results & Data Results & Data ([facility]) Vital Signs (Past 12 Hours) Vital Signs Temp Pulse Resp BP Pulse Ox 11/16/20 11:44 37.0 C 82 20 129/69 98 11/16/20 08:00 36.5 C 76 17 133/83 97 11/16/20 03:00 36.6 C 75 16 130/78 94 PG Care Time/CCT Total # of Minutes Spent Total Time Spent with Patient: Total time spent is greater than 50% in coordin ation of care (as documented) at patient's floor/unit and/or counseling patient: Coding Level of Care Code 96042 Subseq Hosp Care Lvl 3 Diagnoses Gram-positive bacteremia R78.81 Visual changes H53.9 Urinary retention R33.9 Sepsis A41.9 JANET (acute kidney injury) N17.9 Hypertension I10 Hypertension type: essential hypertension Nonischemic cardiomyopathy I42.8 Paroxysmal atrial fibrillation I48.0 Thoracic aortic aneurysm I71.2 DVT prophylaxis Z29.9 (1) Hypertension Hypertension type: essential hypertension Qualified Code(s): I10 - Essential (primary) hypertension
[2020-11-16] MEDS: MULTIVITAMIN TAB PO SCH (19:44)
[2020-11-16] MEDS: SIMVASTATIN 40 MG TAB PO SCH (19:44)
[2020-11-16] MEDS: ASPIRIN 81 MG ECTAB PO SCH (19:44)
[2020-11-16] MEDS: cefTRIAXone SODIUM 2,000 MG in DEXTROSE 5% 50 ML IV SCH (19:45)
[2020-11-17 06:43] LABS: Hemoglobin 9.2 g/dL (14.0-18.0); Mean Corpuscular Hemoglobin 29.7 pg (25-34); Mean Corpuscular Hgb Conc 32.9 g/dL (32-36); Mean Corpuscular Volume 90.3 fL (80-100); Mean Platelet Volume 10.8 fL (7.4-10.4); Platelet Count 140 K/uL (130-400); RDW Coefficient of Variation 15.6 % (11.5-14.5); RDW Standard Deviation 51.8 fL (36.4-46.3); White Blood Count 8.45 K/uL (4.8-10.8)
--- NOTE | 2020-11-17 07:02 | XRay Report ---
XR chest 1V portable CLINICAL HISTORY: PICC placement COMPARISON STUDY: 11/10/2020 FINDINGS: The heart remains enlarged. There is persistent aneurysmal dilatation of the thoracic aorta . There is a right subclavian implantable defibrillator. There are postsurgical changes of midline st ernotomy. There is central vascular prominence consistent with mild pulmonary vascular congestion/flu id overload. There is been interval placement of a left-sided PICC catheter. The tip projects at the superior vena cava.[ IMPRESSION: 1. The recently placed left-sided PICC catheter is positioned with its tip projected at the superior vena cava 2. Cardiomegaly and radiographic evidence of congestive failure/fluid overload 3. Persistent aneurysmal dilatation of the thoracic aorta ACT 112: Negative or not required by law. Electronically signed by: Yury Hdz M.D. 11/17/2020 7:00 AM
[2020-11-17 07:13] LABS: BUN Creatinine Ratio 27.3 (10-20); Calcium 8.4 mg/dl (8.5-10.1); Creatinine Clr Calc Pharmacy 37.6 ml/min; Est GFR (African American) 39.7; Est GFR (Non-African American) 34.3; Magnesium 2.3 mg/dl (1.8-2.4); Potassium 4.3 mmol/L (3.5-5.1)
[2020-11-17] MEDS: AMIODARONE 200 MG TAB PO SCH (08:12)
[2020-11-17] MEDS: METOPROLOL SUCC 50MG EXT REL TAB PO SCH (08:13)
[2020-11-17] MEDS: TAMSULOSIN HCL 0.4 MG CAP PO SCH (08:13)
[2020-11-17] MEDS: cefTRIAXone SODIUM 2,000 MG in DEXTROSE 5% 50 ML IV SCH (08:13)
[2020-11-17] MEDS: RIVAROXABAN 15 MG TAB PO SCH (08:14)
--- NOTE | 2020-11-17 13:54 | Hospitalist Progress Note ---
Date of Service November 17, 2020 Assessment & Plan (1) Gram-positive bacteremia: Group C beta Strep in 4/4 bottles on 11/09. Repeat cultures from 11/11 all negative. Unclear source. - Echo on 11/10 without evidence of a vegetation. - CXR on 11/09 & 11/10 both without overt evidence of pneumonia. Urine cx on 11/10 without any growth. - Continue ceftriaxone - ID consulted - Recommend 4-6 weeks of antibiotic therapy. In discussion with cardiology, not really a candidate for hardware removal. Will reach out to ID in regards to duration and possible long-term suppression. - Discussed with ID. Given we do not feel hardware removal is viable option, ID recommends prolonging ceftriaxone to 6 weeks. Should be following up with ID during abx, so can make determination about long-term suppression at that point. In this scenario, end date will be: 12/22/2020. - Follow up can be arranged with [facility] ID by calling their department. Tele-health should be possible per the consulting ID doctor. (2) Visual changes: Describes it as copious floaters that have settled, now with a "spider web" that moves with his vision. Discussed with multiple eye providers, including the on-call tube winder hand who feels it is likely a partial vitreous detachment. They will see him in the outpatient setting as they feel inpatient exam is limited due to limited equipment ability. - No inpatient needs - Close outpatient follow-up (3) Urinary retention: On 11/13, reported suprapubic pain that had been ongoing "for 3 days." - Straight cath put out 1250 mL at 11:30am. Required another several. - Continue tamsulosin - Urology consulted - Re-inserted Muñoz on 11/14 and will plan for outpatient follow-up with cystoscopy and voiding trial. (4) Sepsis: Due to bacteremia. - Resolved (5) JANET (acute kidney injury): Chronic kidney disease, stage 3. Baseline Cr ~2, though not a lot of recent creatinines prior to this. - Likely pre-renal from poor perfusion from sepsis and ATN. - Peaked at 5.22 now at 1.8 on 11/17. (6) Hypertension: BP today is 115/65. - Holding furosemide, Entresto for now given JANET and hypotension on admission. (7) Nonischemic cardiomyopathy: Echo on 11/10 showed EF 30 - 35% with moderate global hypokinesis. TAVR in good position. - Not in acute CHF. - Continue ASA, statin, beta-olivia - Will restart Lasix 40 mg PO daily on 11/17 as his weight seems to be creeping up. No overt CHF at this time. (8) Paroxysmal atrial fibrillation: EKG on 11/11 showed AV dual-paced rhythm with a Bi-V pacer - Continue beta-olivia - Restart Xarelto at 15 mg dose (9) Thoracic aortic aneurysm: CXR on 11/09 showed "Aneurysmal dilatation of the thoracic aorta." - Will need CTA chest at some point, but defer until Cr down slightly. (10) DVT prophylaxis: Xarelto Admission and Anticipated Discharge Date Admission Date: November 08, 2020 Subjective Doing well today. Reports no fevers/chills, chest pain, shortness of breath, abdominal pain, nausea, or vomiting. Physical Exam Constitutional: WD/WN, vitals as above no acute distress Eyes: PERRL, EOM intact bilaterally and reactive pupils; no conjunctival abnormality, no papilledema and no anterior chamber abnormality ENMT: external ear and nose normal, oropharynx normal Neck: trachea midline, no thyromegaly normal visual inspection Respiratory: able to speak in complete sentences; no respiratory distress, no labored breathing and no cough Cardiovascular: RRR, no murmur, no edema Gastrointestinal (Abdomen): Inspection/Auscultation: abdomen normal to inspection; abdomen not distended Percussion/Palpation: abdomen soft; abdomen nontender, no guarding and abdomen not rigid Musculoskeletal: no cyanosis or clubbing, extremities motor strength 5/5 Skin: no rashes, warm and dry Neurologic: moves all extremities and awake Psychiatric: Orientation: alert and oriented to person Results & Data Results & Data ([facility]) Vital Signs (Past 12 Hours) Vital Signs Temp Pulse Resp BP Pulse Ox 11/17/20 11:04 37.1 C 76 16 114/64 95 11/17/20 07:09 37.1 C 76 16 125/75 93 11/17/20 02:55 36.8 C 73 19 125/73 94 PG Care Time/CCT Total # of Minutes Spent Total Time Spent with Patient: Total time spent is greater than 50% in coordination of care (as documented) at patient's floor/unit and/or counseling patient: Coding Level of Care Code 80376 Subseq Hosp Care Lvl 2 Diagnoses Gram-positive bacteremia R78.81 Visual changes H53.9 Urinary retention R33.9 Sepsis A41.9 JANET (acute kidney injury) N17.9 Hypertension I10 Hypertension type: essential hypertension Nonischemic cardiomyopathy I42.8 Paroxysmal atrial fibrillation I48.0 Thoracic aortic aneurysm I71.2 DVT prophylaxis Z29.9 (1) Hypertension Hypertension type: essential hypertension Qualified Code(s): I10 - Essential (primary) hypertension
[2020-11-17] MEDS: FUROSEMIDE 40 MG TAB PO SCH (14:23)
[2020-11-17] MEDS ORDERED: diphenhydrAMINE Capsule 25 MG CAP PO SCH (21:00)
[2020-11-17] MEDS: MULTIVITAMIN TAB PO SCH (21:26)
[2020-11-17] MEDS: SIMVASTATIN 40 MG TAB PO SCH (21:26)
[2020-11-17] MEDS: ASPIRIN 81 MG ECTAB PO SCH (21:26)
[2020-11-17] MEDS: ACETAMINOPHEN 325 MG TAB PO PRN (21:27)
[2020-11-18 06:41] LABS: Hematocrit (blood only) 26.3 % (42-52); Hemoglobin 8.6 g/dL (14.0-18.0); Mean Corpuscular Hemoglobin 29.3 pg (25-34); Mean Corpuscular Hgb Conc 32.7 g/dL (32-36); Mean Corpuscular Volume 89.5 fL (80-100); Mean Platelet Volume 10.8 fL (7.4-10.4); Platelet Count 149 K/uL (130-400); RDW Coefficient of Variation 15.5 % (11.5-14.5); RDW Standard Deviation 50.9 fL (36.4-46.3); Red Blood Count 2.94 M/uL (4.7-6.1); White Blood Count 8.49 K/uL (4.8-10.8)
[2020-11-18 07:12] LABS: BUN Creatinine Ratio 23.8 (10-20); Calcium 8.7 mg/dl (8.5-10.1); Creatinine Clr Calc Pharmacy 35.3 ml/min; Est GFR (African American) 36.5; Est GFR (Non-African American) 31.5; Magnesium 2.1 mg/dl (1.8-2.4); Potassium 3.9 mmol/L (3.5-5.1)
[2020-11-18] MEDS: TAMSULOSIN HCL 0.4 MG CAP PO SCH (08:21)
[2020-11-18] MEDS: METOPROLOL SUCC 50MG EXT REL TAB PO SCH (08:21)
[2020-11-18] MEDS: FUROSEMIDE 40 MG TAB PO SCH (08:21)
[2020-11-18] MEDS: RIVAROXABAN 15 MG TAB PO SCH (08:21)
[2020-11-18] MEDS: AMIODARONE 200 MG TAB PO SCH (08:21)
[2020-11-18] MEDS: cefTRIAXone SODIUM 2,000 MG in DEXTROSE 5% 50 ML IV SCH (08:38)
--- NOTE | 2020-11-18 20:59 | Discharge Summary ---
Date of Service November 18, 2020 Principal Diagnosis Group C Strep bacteremia Urinary retention Discharge Exam Constitutional WD/WN, vitals as above no acute distress Eyes PERRL, EOM intact bilaterally and reactive pupils; no conjunctival abnormality, no papilledema and no anterior chamber abnormality ENMT external ear and nose normal, oropharynx normal Neck trachea midline, no thyromegaly normal visual inspection Respiratory able to speak in complete sentences; no respiratory distress, no labored breathing and no cough Cardiovascular RRR, no murmur, no edema Gastrointestinal (Abdomen) Inspection/Auscultation: abdomen normal to inspection; abdomen not distended Percussion/Palpation: abdomen soft; abdomen nontender, no guarding and abdomen not rigid Musculoskeletal no cyanosis or clubbing, extremities motor strength 5/5 Skin no rashes, warm and dry Neurologic moves all extremities and awake Psychiatric Orientation: alert and oriented to person Affect: + irritable affect Discharge Data Allergies Allergy/AdvReac Type Severity Reaction Status Date / Time adhesive Allergy Intermediate RASH Verified 11/08/20 21:58 diltiazem [From Cardizem] Allergy Rash Verified 11/08/20 21:59 Consultations 11/08/20 20:06 ED Decision to Admit Stat 11/09/20 07:45 Consult Cardiology Routine 11/13/20 15:05 Consult Infectious Diseases Routine 11/15/20 07:01 Consult Urology Routine Ordered Studies 11/08/20 19:56 CT abd pelvis wo con Stat 11/09/20 09:21 CT head/brain wo con Urgent Hospital Course (1) Gram-positive bacteremia: Group C beta Strep in 4/4 bottles on 11/09. Repeat cultures from 11/11 all negative. Unclear source. - Echo on 11/10 without evidence of a vegetation. - CXR on 11/09 & 11/10 both without overt evidence of pneumonia. Urine cx on 11/10 without any growth. - Continue ceftriaxone - ID consulted - Recommend 4-6 weeks of antibiotic therapy. In discussion with cardiology, not really a candidate for hardware removal. Will reach out to ID in regards to duration and possible long-term suppression. - Discussed with ID. Given we do not feel hardware removal is viable option, ID recommends prolonging ceftriaxone to 6 weeks. Should be following up with ID during abx, so can make determination about long-term suppression at that point. In this scenario, end date will be: 12/22/2020. - Follow up can be arranged with [facility] ID by calling their department. Tele-health should be possible per the consulting ID doctor. (2) Visual changes: Describes it as copious floaters that have settled, now with a "spider w eb" that moves with his vision. Discussed with multiple eye providers, including the on-call professor of legal studies who feels it is likely a partial vitreous detachment. They will see him in the outpatient setting as they feel inpatient exam is limited due to limited equipment ability. - No inpatient needs - Close outpatient follow-up (3) Urinary retention: On 11/13, reported suprapubic pain that had been ongoing "for 3 days." - Straight cath put out 1250 mL at 11:30am. Required another several. - Continue tamsulosin - Urology consulted - Re-inserted Muñoz on 11/14 and will plan for outpatient follow-up with cystoscopy and voiding trial. (4) Sepsis: Due to bacteremia. - Resolved (5) JANET (acute kidney injury): Chronic kidney disease, stage 3. Baseline Cr ~2, though not a lot of recent creatinines prior to this. - Likely pre-renal from poor perfusion from sepsis and ATN. - Peaked at 5.22 now at 1.8 on 11/17. (6) Hypertension: BP today is 115/65. - Holding Entresto - Restart furosemide at 40 mg PO daily on 11/17. (7) Nonischemic cardiomyopathy: Echo on 11/10 showed EF 30 - 35% with moderate global hypokinesis. TAVR in good position. - Not in acute CHF. - Continue ASA, statin, beta-olivia - Will restart Lasix 40 mg PO daily on 11/17 as his weight seems to be creeping up. No overt CHF at this time. - Discharge weight was 114.1 kg. This was on the higher side of the last few days, but his weight really fluctuated. Will need close cardiology follow up and possible adjustment of his diuretic. (8) Paroxysmal atrial fibrillation: EKG on 11/11 showed AV dual-paced rhythm with a Bi-V pacer - Continue beta-olivia - Restarted Xarelto at 15 mg dose (9) Thoracic aortic aneurysm: CXR on 11/09 showed "Aneurysmal dilatation of the thoracic aorta." - Will need CTA chest at some point, but defer until Cr down slightly. (10) DVT prophylaxis: Xarelto Total Time Total Time Spent Total Time Spent (In Minutes): 35 Discharge Plan Discharge Items Patient Disposition: Transfer Half-Way Fac Reason For Visit: HYPOTENSION FATIGUE Discharge Diagnosis: Group C beta Strep bacteremia Activity: Resume your previous activity Non-emergency contact: Primary Care Provider, Specialist and Parts Control Clerk Call non-emergency contact if: your symptoms worsen and your temperature is above 101 Follow-up/Referrals: John Del Castillo MD [Physician] - (Please call the office to arrange a voiding trial and cystoscopy.) Efra Hobson III, MD [Primary Care Provider] - Jeevan Newton DO [Physician] - (Please follow up with Dr. Newton in 1-2 weeks to check on your kidneys and your heart.) Petey Tang MD [Physician] - (Please follow up with the infection disease doctors in 1 week to see how your IV antibiotics are going.) Diet: Carb Consistent or DM2 and Heart Healthy Addtl Attending Provider Instructions: Mr. Ocampo, You were here in the hospital after a fall and weakness. We found that you had bacteria in your blood stream. We have treated this with an IV antibiotic called ceftriaxone which you will need to be on for at least a month, and possibly a bit longer. PLEASE NOTE: Ceftriaxone is NOT IM, but is IV. I can not change that in the system to order IV medications. Please have [facility] arrange a follow up with the Infectious Disease doctors at [place]. You will hopefully be able to do a tele-health visit with them. Please see Dr. Newton or Ruchi Arguello in the office soon to check on your kidneys and to check for any swelling. Entresto was stopped here for now due to low blood pressure, but they may restart it eventually. For your urinary retention, please see the Urology team at [facility] to try to get your prostate issues taken care of. Finally, please see your normal eye doctor in the next week or two. The eye doctors think you might have had a vitreous detachment which is not an emergency, but will need to be examined with a dialated eye exam. Pending Studies at Discharge: No Stand-Alone Forms: My [facility] Skilled Items Patient informed of condition?: Yes DNR: Yes Discharge Level of Care: Acute rehab Communicable Disease: No Discharge Prognosis: Improving Lines: PICC Urinary Catheter: Yes Medications and DC Order Prescriptions: New tamsulosin 0.4 mg Capsule 0.4 mg PO QAM Qty: 0 RF: 0 ceftriaxone 2 gram recon soln 2 g IM DAILY Qty: 1 RF: 0 Continued metoprolol succinate 50 mg tablet extended release 24 hr 50 mg PO DAILY Qty: 90 RF: 3 simvastatin 40 mg tablet 40 mg PO HS Qty: 90 RF: 3 multivitamin [Multiple Vitamins] Tablet 1 tab PO QPM RF: 0 zolpidem 5 mg Tablet 5 mg PO HS PRN (Reason: Insomnia) RF: 0 Xarelto 15 mg tablet 15 mg PO QPM RF: 0 amiodarone 200 mg tablet 200 mg PO DAILY RF: 0 aspirin 81 mg Tablet,Delayed Release (Dr/Ec) 81 mg PO QPM RF: 0 furosemide 20 mg Tablet 10 - 40 mg PO DAILY PRN (Reason: Edema) RF: 0 dorzolamide-timolol 22.3-6.8 mg/mL drops 1 drp OPL BID RF: 0 Discontinued Entresto 49-51 mg tablet 1 tab PO BID RF: 0 Discharge Orders: Discharge Order (Routine); Ordered 11/18/20 Ordered By: Edgar Sifuentes Admission Data Admit Date/Time: 11/08/20 21:25 Attending Provider: Edgar Sifuentes Admit Provider: Renea Bautista Primary Care Provider: Efra Hobson III Other Providers: Jeevan Newton ; [facility] ; Edgar Sifuentes ; Fernie Niño ; Petey Tang ; Ricco Stout I. ; Alo Razo II ; Lorie Patino ; Mauro Baez ; John Del Castillo Other Interventions: Discharge Summary Assessment (RN) Last Done: 11/18/20 15:15 Coding Level of Care Code D/C Day Management >30 mins Diagnoses Gram-positive bacteremia R78.81 Visual changes H53.9 Urinary retention R33.9 Sepsis A41.9 JANET (acute kidney injury) N17.9 Hypertension I10 Hypertension type: essential hypertension Nonischemic cardiomyopathy I42.8 Paroxysmal atrial fibrillation I48.0 Thoracic aortic aneurysm I71.2 DVT prophylaxis Z29.9
--- NOTE | 2020-11-19 05:55 | Electrocardiogram Report ---
Test Reason : Blood Pressure : / mmHG Vent. Rate : 075 BPM Atrial Rate : 033 BPM P-R Int : 168 ms QRS Dur : 178 ms QT Int : 510 ms P-R-T Axes : 000 136 069 degrees QTc Int : 569 ms Poor data quality, interpretation may be adversely affected AV dual-paced rhythm Biventricular pacemaker detected Abnormal ECG When compared with ECG of 11-NOV-2020 06:56, Vent. rate has decreased BY 6 BPM Confirmed by Franky Lozano ([id number]) on 11/19/2020 5:54:46 AM Referred By: REFERRED SELF Confirmed By:Franky Lozano
== END 2020-11-18 18:18 | DRG 871 ==
LOC: ED 18:53 → SUATTDRO 21:25 → 2S 21:25